=== PATIENT | female | born 1950 | race Caucasian/White ===

== ENCOUNTER 2022-01-06 18:53 | Inpatient (IN) ==
[2022-01-06 19:31] LABS: Hematocrit (blood only) 34.6 % (34.1-44.9); Hemoglobin 12.7 g/dl (12.0-16.0); Mean Corpuscular Hemoglobin 27.8 pg (25.0-34.0); Mean Corpuscular Hgb Conc 36.7 g/dL (32.0-36.0); Mean Corpuscular Volume 75.7 fL (80.0-100.0); Platelet Count 264 K/uL (130-400); RDW Coefficient of Variation 13.4 % (11.5-14.5); RDW Standard Deviation 36.1 fL (36.4-46.3); Red Blood Count 4.57 M/uL (3.93-5.22)
[2022-01-06 20:00] LABS: Alanine Aminotransferase 23 U/L (7-52); Albumin Globulin Ratio 0.9 (0.9-2); Albumin Level 2.7 gm/dl (3.4-5.0); Alkaline Phosphatase 81 U/L (34-104); Anion Gap 11 (3-11); Aspartate Aminotransferase 34 U/L (13-39); BUN Creatinine Ratio 25.5 (10-20); Bilirubin,Total 0.9 mg/dl (0.2-1.0); Blood Urea Nitrogen 14 mg/dl (6-23); Calcium 7.4 mg/dl (8.5-10.1); Carbon Dioxide 22 mmol/L (21-32); Chloride 75 mmol/L (98-107); Est GFR (African American) 107.8 ml/min; Est GFR (Non-African American) 93.1 ml/min; Globulin 2.9 gm/dl (2.5-4.0); Glucose 193 mg/dl (70-99(Fasting)); Magnesium 1.7 mg/dl (1.7-2.4); Potassium 3.6 mmol/L (3.5-5.1); Sodium 108 mmol/L (136-145); Total Protein 5.6 gm/dl (6.0-8.3); Troponin I High Sensitivity 13.1 pg/ml (0-14)
[2022-01-06] MEDS ORDERED: dexAMETHasone**PF** 10 MG/ML VIAL IV ONE (20:04)
[2022-01-06] MEDS ORDERED: AZTREONAM 2,000 MG in DEXTROSE 5% 100 ML IV STA (20:07)
[2022-01-06] MEDS ORDERED: VANCOMYCIN CONSULT ACTIVE PRN (20:07)
[2022-01-06] MEDS ORDERED: VANCOMYCIN HCL 1,000 MG in SODIUM CHLORIDE 0.9% 500 ML IV ONE (20:07)
--- NOTE | 2022-01-06 20:07 | XRay Report ---
XR chest 1V portable HISTORY: Dyspnea COMPARISON: None. FINDINGS: No pneumothorax. The cardiac silhouette is top normal in size. There are small bilateral pl eural effusions. There is diffuse interstitial/vascular thickening with right perihilar hazy airspace opacities. This favors moderate pulmonary edema. A superimposed pneumonia could also have a similar appearance in the appropriate clinical setting. Advanced degenerative changes within the shoulders. IMPRESSION: 1. Moderate pulmonary edema and small bilateral pleural effusions. 2. Right perihilar hazy airspace opacities is likely due to the pulmonary edema. A superimposed pneum onia could also have a similar appearance in the appropriate clinical setting. ACT 112: Negative or not required by law. Electronically signed by: Franki Egan M.D. 01/06/2022 8:06 PM
[2022-01-06] MEDS ORDERED: SODIUM CHLORIDE 0.9% 1000ML 250 ML IV ONE (20:18)
[2022-01-06] MEDS ORDERED: SODIUM CHLORIDE 0.9% 1000ML 1,000 ML IV STA (20:18)
[2022-01-06 20:23] LABS: Basophilic Stippling 1+; Basophils # (auto) 0.04 K/uL (0-0.2); Basophils % (auto) 0.3 %; Echinocytes 3+; Eosinophils # (auto) 0.01 K/uL (0-0.50); Eosinophils % (auto) 0.1 %; Immature Granulocytes # (auto) 0.26 K/uL (0.00-0.02); Lymphocytes # (auto) 0.52 K/uL (1.2-3.4); Monocytes # (auto) 0.68 K/uL (0.24-0.82); Monocytes % (auto) 5.2 %; Neutrophils # (auto) 11.49 K/uL (1.4-6.5); Neutrophils % (auto) 88.4 %; Ovalocytes 1+
--- NOTE | 2022-01-06 20:36 | History & Physical Report ---
Date of Service January 06, 2022 Assessment & Plan (1) Hypoxia: Plan: This is a 71-year-old female with a history of type 1 diabetes, diabetic retinopathy, bilateral BKAs, chronic indwelling Low, CAD s/p RCA stent in 2019 and significant LAD and/or left main disease, RA, dyslipidemia who presented to [facility] for evaluation of dyspnea and weakness, likely secondary to COVID-19 and possible superimposed bacterial PNA, as well as severe hyponatremia in the context of recent diarrhea and anorexia. Hypoxia / Shortness of Breath Work-up as follows: Chest x-ray demonstrating moderate pulmonary edema and small bilateral pleural effusions, as well as a right perihilar hazy opacity Leukocytosis to 13 with L shift on admission Pro-Rd elevated at 2.6 BNP normal at 86 Await MRSA nares COVID-19 PCR positive Likely secondary to COVID-19 and possibly superimposed bacterial pneumonia; lower suspicion there is a component of acute heart failure given dry appearance on exam Can consider CT Chest for further clarification of ?secondary bacterial PNA if clinical picture remains unclear ABX: Stop Aztreonam. 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 1 day INTEGRATION TECHNICIAN (01/05) - Repeat test was positive in the ER - Dexamethasone 6mg x 10 days ordered - Hold from remdesivir given recent Paxlovid completion - Monitor SpO2, titrate as needed - Isolation precautions ordered - ABX as above (3) Acute hyponatremia: Plan: Acute Hypotonic Hyponatremia - sOsm on arrival at [facility] - History revealing of significant anorexia over last few days alongside diarrhe a with Paxlovid - Suspect largely secondary to hypovolemia given clinical dry appearance and history noted above; may also be lesser component of SIADH given ongoing infections - s/p NSS 250cc in the ED - Continue NSS @ 125 cc/hr x 1L while monitoring I&Os; can readjust PRN - Await urine studies - NaCl 1g t.i.d. - Check BMP q2h x 2 then q4h - Will consider small boluses of 3% NaCl and renal consult if needed - Monitor I&Os - Seizure precautions, neurochecks ordered -- monitor in PCU Goal: Given suspected acuity, will aim for 4-6 mEq correction over first 6 hours, cap at ~8/24h (4) Diabetes type 1, controlled: Plan: T1DM - Patient has CGM and insulin pump attached - thankfully has remained relatively well-controlled over last few days - Hold use of home insulin pump - Glycemic consult appreciated - Not able to take ACEIs/ARBs due to allergy (5) Suprapubic catheter: Plan: - Noted. Has b/l BKAs, non-ambulatory. - Monitor and maintain while here - Per son - replaces q1mo (6) CAD (coronary atherosclerotic disease): Plan: CAD - Per [facility] cardiology notes: CAD s/p RCA stent in 2019 in [place], also noted to have significant LAD and/or left main disease on PCI - Continue ASA, clopidogrel, atorvastatin - Trialed BBs in the past, per [facility] Cardiology notes, but unfortunately experienced significant fatigue (7) Rheumatoid arthritis: Plan: RA - Stable. On Abatacept q4wk per Son. - Hold home prednisone given ongoing dexamethasone therapy Plan Code: FULL CODE Diet: CC when appropriate PPX: SCDs Dispo: PCU History of Present Illness Primary Care Provider: Fabian Grant MD This is a 71-year-old female with a history of type 1 diabetes, diabetic retinopathy, bilateral BKAs, chronic indwelling Low, CAD s/p RCA stent in 2019 and significant LAD and/or left main disease, RA, dyslipidemia who presented to [facility] for evaluation of dyspnea and weakness. Patient tested positive for COVID-19 8-days INTEGRATION TECHNICIAN. Went to [facility] the next day, given Paxlovid. Completed course, but unfortunately had bad diarrhea for several days - which has since improved. However, she became progressively more weak and her son reports significantly decreased PO intake leading up to today. She was confused today and at home, her pulse ox showed 75% - so they decided to bring her to the hospital. She denies SOB. Says she's had a productive cough x several days. No fevers, chills. No nausea or vomiting. Medications reviewed and include abatacept (q4w), acetaminophen, aspirin, atorvastatin, vitamin D3, clopidogrel, insulin, prednisone 2.5 mg daily. Allergies in PSH system: Keflex (GI discomfort), Bactrim (GI discomfort) No use of EtOH. No use of tobacco. At baseline, she is not ambulatory secondary to bilateral BKAs. She has an indwelling Low that is changed q1mo. On arrival, she was found to be tachycardic with heart rate 105, hypoxic with SPO2 86% on room air. Labs demonstrated leukocytosis to 13 with associated left shift. She was profoundly hyponatremic to 108, hypochloremic to 75, potassium 3.6, calcium 7.4. Chest x-ray demonstrated moderate pulmonary edema with small bilateral pleural effusions, and a right perihilar airspace opacity. Blood cultures were taken. ECG demonstrated no acute repolarization abnormalities, rhythm abnormalities, or conduction abnormalities. She was given 1250 cc NSS, started on aztreonam and vancomycin, and given a single dose of dexamethasone IV. Allergies Allergy/AdvReac Type Severity Reaction Status Date / Time cephalexin Allergy Unknown Unknown Verified 12/05/21 15:00 diphenhydramine Allergy Unknown Unknown Verified 12/05/21 15:00 hyoscyamine Allergy Unknown Unknown Verified 12/05/21 15:00 infliximab Allergy Unknown Unknown Verified 12/05/21 15:00 losartan Allergy Unknown Unknown Verified 12/05/21 15:00 phenazocine Allergy Unknown Unknown Verified 12/05/21 15:00 sulfamethoxazole Allergy Unknown Unknown Verified 12/05/21 15:00 lisinopril Allergy Verified 12/05/21 15:00 phenazopyridine Allergy Verified 12/05/21 15:00 [From Pyridium] ramipril AdvReac Unknown Unknown Verified 12/05/21 15:00 beta blockers Allergy Uncoded 12/05/21 15:00 novolin AdvReac Unknown Unknown Uncoded 12/05/21 15:00 Home Medications Medication Instructions Recorded Confirmed Type aspirin 81 mg tablet,delayed 81 mg PO DAILY #30 tabs 06/02/21 12/05/21 Rx release atorvastatin 80 mg tablet 80 mg PO DAILY #30 tabs 06/02/21 12/05/21 Rx clopidogrel 75 mg tablet (Plavix) 75 mg PO DAILY #30 tabs 06/02/21 12/05/21 Rx glucagon HCl 1 mg solution for 1 mg subcut Q20M PRN hypoglycemia 06/02/21 12/05/21 Rx injection (Glucagon (HCl) #1 ea Emergency Kit) multivitamin 1 tab PO DAILY #30 tabs 06/02/21 12/05/21 Rx prednisone 2.5 mg tablet 2.5 mg PO DAILY #30 tabs 06/02/21 12/05/21 Rx Lactobacillus acidophilus 10 10,000 mmu cells PO DAILY 07/18/21 12/05/21 History billion cell capsule (Probiotic) abatacept (with maltose) 250 mg See Rx Instructions IV .COMPLEX 10/13/21 12/05/21 History intravenous solution (Orencia (with maltose)) acetaminophen 325 mg capsule 650 mg PO Q4H PRN 10/13/21 12/05/21 History blood sugar diagnostic (OneTouch #1 ea 10/13/21 12/05/21 Rx Ultra Test strips) insulin lispro 100 unit/mL See Rx Instructions subcut DAILY 10/13/21 12/05/21 History subcutaneous solution (Humalog U-100 Insulin) cholecalciferol (vitamin D3) 50 2,000 unit PO DAILY #30 caps 10/26/21 12/05/21 Rx mcg (2,000 unit) capsule Past Med/Surg History Surgical History (Updated 10/13/21 @ 12:20 by Jason Myers) S/P BKA (below knee amputation) Stented coronary artery Family History (Updated 10/13/21 @ 08:55 by Mirtha Conte) Father Hypertension Stroke Mother Heart disease Social History Smoking Status: Never smoker Hx Alcohol Use: No Hx Substance Use: No Preferred Language: Kazakh Communication Ability: Effective Beliefs That Will Affect Care: None marital status: / Current Living Situation: Family Current Living Situation Comment: son, dil, grandkids current occupational status: retired current occupation: Retired RN Feels Safe at Home: Yes Assistive Devices: Glasses Review of Systems Review of Systems: as per HPI Physical Exam Physical Exam: General: 71-year old female who is tired and ill appearing, but alert and oriented throughout our discussion. HEENT: NCAT. - Eyes - Sclera are white, anicteric, and without injection. - Mouth - MMM - Neck - supple, no appreciable JVD Cardiac: Normal rate and regular rhythm; S1 and S2 present with no murmurs, rubs, or gallops. Pulmonary: Good respiratory effort with symmetric expansion of the chest. No use of accessory muscles. Lungs demonstrating bilateral crackles throughout both lungs, most notably at the bases. Abdominal: Normoactive bowel sounds. Abdomen was soft, nondistended, and non- tender to palpation. Extremities: Upper and lower extremities are warm and well perfused. No peripheral edema in the lower extremities bilaterally. Bilateral BKAs noted. Neuro: - Cranial Nerves: CN I, IX, XIII, and X - not assessed. II - PERRL. III/IV/ - EOMs WNL. No nystagmus. V - Facial sensation in tact in all three divisions; jaw opening WNL. VII - Patient is able to smile symmetrically and keep eyes close against resistance. IX - Soft palate raises equally and appropriately while sayi ng "ah." XI - Patient is able to shrug shoulders against resistance. XII - patient is able to stick out tongue and deviate from [id number] appropriately. - Motor: UE - Finger, wrist, elbow, and shoulder strength is 4/5 bilaterally. - Sensation: UE and LE sensation to light touch is grossly intact bilaterally. Results & Data Results & Data ([facility]) Vital Signs (Past 12 Hours) Vital Signs Temp Pulse Resp BP Pulse Ox O2 Del Method O2 Flow Rate 01/06/22 19:01 110 H 20 94 Nasal Cannula 6 01/06/22 18:42 36.3 C L 105 H 22 116/63 86 L Room Air 6 Supervising Physician Co-Signing Physician Notes Attending addendum: I have physically seen this patient, have supervised the medical residents activities, and agree with the H&P unless as otherwise noted. Assessment and Plan: Acute hypotonic hyponatremia- Sodium 108 upon admission Had significant decreased oral intake over the past week or so Large component is likely associated with COVID-19 pneumonia, and secondary bacterial pneumonia to be treated Sodium 108 Placed on sodium chloride 1 g p.o. 3 times daily Serial BMP as noted Acute respiratory failure with hypoxia/COVID-19 pneumonia/secondary bacterial pneumonia- Dexamethasone 6 mg IV daily for 10 days Status post completion of Paxlovid, may be necessary to treat second dosing if becomes long COVID Oxygen supplementation, titrate to keep pulse ox 94-95% Albuterol HFA as needed Possible aspiration Antibiotics Unasyn and doxycycline as noted MRSA nares pending CAD/hypertension/status post RCA stent in 2019/residual significant LAD and left main disease Continue aspirin, clopidogrel and atorvastatin Diabetes mellitus- Glycemic consult as noted Holding home insulin pump for now Remaining orders and notations as noted Resident Activity Tracking Resident Involvement: Resident Care Provided Care Provided: Adult Hospital Medicine
[2022-01-06] MEDS ORDERED: ACETAMINOPHEN 325 MG TAB PO PRN (21:05)
[2022-01-06 21:13] LABS: Appearance Urine Turbid (Clear); Bacteria Urine Automated 4+ (Negative); Bilirubin Urine Negative (Negative); Blood Urine 2+ (Negative); Color Urine Yellow; Epithelial Cell Urine Auto >30 /lpf (0-5); Glucose Urine UA Negative (Negative); Ketones Urine 2+ (Negative); Leukocyte Esterase Urine 3+ (Negative); Nitrite Urine Positive (Negative); Protein Urine 2+ (Negative); Specific Gravity Urine 1.016 (1.000-1.030); Urobilinogen Urine Negative (Negative); WBC Urine Automated >30 /hpf (0-5)
[2022-01-06] MEDS ORDERED: DOXYCYCLINE HYCLATE 100 MG in DEXTROSE 5% 100 ML IV SCH (22:45)
--- NOTE | 2022-01-06 22:49 | Emergency Department Note ---
Impression & Plan COVID-19, Hypoxia, Acute hyponatremia, Pneumonia ED Provider Note INFORMANT: Patient and son ED PROVIDER(S): Crispin Merritt MD CHIEF COMPLAINT: Shortness of breath PLAN: Disposition: Admitted Condition: Guarded Outpatient prescription management: none Referral: None MEDICAL DECISION MAKING: Patient presented because shortness of breath. Work-up was initiated. She was hypoxic requiring 6 L nasal cannula oxygen to maintain her saturations in the mid to upper 90s. She had a chest x-ray performed and this was very concerning for infiltrative processes worse on the right. Her BNP and troponin were negative. Radiology questioned infiltrate versus CHF. Seems to be more consist ent with an infectious process. Patient had a leukocytosis on CBC. The patient had blood cultures obtained and was given broad-spectrum antibiotics. Her COVID test was still positive. She was given IV Decadron. The patient was found to have severe hyponatremia with a sodium of 108. She was started on gentle normal saline hydration. Consultation was made with Dr. Phan Escobedo of the [facility] service. Patient was evaluated in the ER for further management. We did discuss hypertonic saline however he asked for her to be volume repleted with the normal saline first. Triage Nursing notes reviewed and agree them. Vital Signs: reviewed and remarkable for no significant abnormalities Differential diagnosis: Reactive airway disease, pneumonia, pneumothorax, COPD, CHF, infections, cardiac ischemia, pulmonary embolism, musculoskeletal, gastrointestinal, as well as other pathologies. Diagnostics interpreted by me: ECG: Twelve-lead ECG reveals a normal sinus rhythm at [address] elevation or depression. No PACs or PVCs. Cardiac Monitoring: Cardiac monitoring ordered by me: The patient was placed on continuous cardiac monitoring and observed. It revealed a normal sinus rhythm at 97 beats per minute without ectopy or evidence of dysrhythmia. Imaging studies: Moderate pulmonary edema and small bilateral pleural effusions. Right perihilar hazy airspace opacities is likely due to the pulmonary edema. A superimposed pneumonia could also have a similar appearance in the appropriate clinical setting. HPI: The patient is a 71year old female who presents to the Emergency Room with complaints of shortness of breath. This started over the last week and is worsening. The patient also notes the following associated symptoms, productive cough. Patient was diagnosed with COVID last weekend. She has had symptoms for about 8 days. She was started onPaxlovid and completed the course. She seemed to be getting worse, more weak. Family states she was having difficulty eating and drinking.. The patient has found no relieving factors. Current pain is rated as 0/10. Patient son states that he checked her pulse oximetry at home and she was 75%. Pt denies LOC, headache, diaphoresis, visual changes, neck pain, chest pain, nausea, vomiting, abdominal pain, back pain, melena, hematochezia, urinary symptoms, numbness, lymphadenopathy, rash, or other complaints. ROS: See above HPI for pertinent positives & negatives. A total of 10 systems reviewed and were otherwise negative. PAST MEDICAL HISTORY:See Below , diabetes PAST SURGICAL HISTORY:See Below, bilateral BKA FAMILY HISTORY:See Below SOCIAL HISTORY:See Below, lives with family HOME MEDICATIONS:See Below ALLERGIES:See Below CRITICAL CARE: Normal rate. Normal rhythm. No murmurs. No rubs. Extremities warm and well perfused. Pulses equal. No JVD. GI: Soft, non-distended. No tenderness to palpation. No rebound or guarding. No masses. RECTAL: Deferred. MUSCULOSKELETAL: Atraumatic. Chest examination reveals no tenderness. No joint edema. LOWER EXTREMITIES: Bilateral BKA's present. No edema. No discoloration. NEURO: Normal sensorium. No sensory or motor deficits noted. SKIN: No rash or jaundice noted. CRITICAL CARE: I have personally spent greater than 35 minutes of critical care time in the direct management of this patient. This includes bedside care, interpretation of diagnostic studies, and testing, discussion with consultants, patient, and family members, and other required patient management activities. These minutes are in excess of all separately billable procedures. Crispin Merritt MD Past Med/Surg History Surgical History (Updated 10/13/21 @ 12:20 by Jason Myers) S/P BKA (below knee amputation) Stented coronary artery Family History (Updated 10/13/21 @ 08:55 by Mirtha Conte) Father Hypertension Stroke Mother Heart disease Social History Smoking Status: Never smoker Hx Alcohol Use: No Preferred Language: Citizen Of [place] marital status: / current occupational status: retired current occupation: Retired RN Feels Safe at Home: Yes Allergies Allergies Allergy/AdvReac Type Severity Reaction Status Date / Time cephalexin Allergy Unknown Unknown Verified 12/05/21 15:00 diphenhydramine Allergy Unknown Unknown Verified 12/05/21 15:00 hyoscyamine Allergy Unknown Unknown Verified 12/05/21 15:00 infliximab Allergy Unknown Unknown Verified 12/05/21 15:00 losartan Allergy Unknown Unknown Verified 12/05/21 15:00 phenazocine Allergy Unknown Unknown Verified 12/05/21 15:00 sulfamethoxazole Allergy Unknown Unknown Verified 12/05/21 15:00 lisinopril Allergy Verified 12/05/21 15:00 phenazopyridine Allergy Verified 12/05/21 15:00 [From Pyridium] ramipril AdvReac Unknown Unknown Verified 12/05/21 15:00 beta blockers Allergy Uncoded 12/05/21 15:00 novolin AdvReac Unknown Unknown Uncoded 12/05/21 15:00 Home Meds Home Medications Medication Instructions Recorded Confirmed Lactobacillus acidophilus 10 10,000 mmu cells PO DAILY 07/18/21 12/05/21 billion cell capsule (Probiotic) abatacept (with maltose) 250 mg See Rx Instructions IV .COMPLEX 10/13/21 intravenous solution (Orencia (with maltose)) acetaminophen 325 mg capsule 650 mg PO Q4H PRN 10/13/21 12/05/21 insulin lispro 100 unit/mL See Rx Instructions subcut DAILY 10/13/21 12/05/21 subcutaneous solution (Humalog U-100 Insulin) Previous Rx's Medication Instructions Recorded aspirin 81 mg tablet,delayed 81 mg PO DAILY #30 tabs 06/02/21 release atorvastatin 80 mg tablet 80 mg PO DAILY #30 tabs 06/02/21 clopidogrel 75 mg tablet (Plavix) 75 mg PO DAILY #30 tabs 06/02/21 glucagon HCl 1 mg solution for 1 mg subcut Q20M PRN hypoglycemia 06/02/21 injection (Glucagon (HCl) #1 ea Emergency Kit) multivitamin 1 tab PO DAILY #30 tabs 06/02/21 prednisone 2.5 mg tablet 2.5 mg PO DAILY #30 tabs 06/02/21 blood sugar diagnostic (OneTouch #1 ea 10/13/21 Ultra Test strips) cholecalciferol (vitamin D3) 50 2,000 unit PO DAILY #30 caps 10/26/21 mcg (2,000 unit) capsule Results & Data (ED) Vital Signs Vital Signs - 24 hr 01/06/22 18:42 01/06/22 19:01 01/06/22 19:05 Temperature 36.3 C L Temperature Source Oral Pulse Rate 105 H 110 H Pulse Rate from SpO2 Sensor Pulse Rhythm Regular Regular Pulse Strength Normal Respiratory Rate 22 20 Respiratory Effort / Characteristics Non-Labored Non-Labored Respiratory Depth Normal Shallow Respiratory Pattern Regular Regular Blood Pressure 116/63 Blood Pressure Mean 80 Blood Pressure Position Sitting Pulse Oximetry 86 L 94 Oxygen Delivery Method Room Air Nasal Cannula Nasal Cannula Oxygen Flow Rate 6 6 6 Sepsis Recent Fever Within 48 Hours No Sepsis New/Unexplained Change in Mental Status No Sepsis Action Taken by Nursing No Action Required 01/06/22 19:05 01/06/22 19:30 01/06/22 19:31 Temperature Temperature Source Pulse Rate 99 H Pulse Rate from SpO2 Sensor 98 H Pulse Rhythm Pulse Strength Respiratory Rate 23 Respiratory Effort / Characteristics Respiratory Depth Respiratory Pattern Blood Pressure 127/68 Blood Pressure Mean 87 Blood Pressure Position Pulse Oximetry 93 Oxygen Delivery Method Nasal Cannula Oxygen Flow Rate 6 Sepsis Recent Fever Within 48 Hours Sepsis New/Unexplained Change in Mental Status Sepsis Action Taken by Nursing 01/06/22 19:40 01/06/22 19:50 01/06/22 20:00 Temperature Temperature Source Pulse Rate 93 H 94 H Pulse Rate from SpO2 Sensor 93 H 95 H Pulse Rhythm Pulse Strength Respiratory Rate 20 20 Respiratory Effort / Characteristics Respiratory Depth Respiratory Pattern Blood Pressure 124/68 Blood Pressure Mean 86 Blood Pressure Position Pulse Oximetry 94 95 Oxygen Delivery Method Oxygen Flow Rate Sepsis Recent Fever Within 48 Hours Sepsis New/Unexplained Change in Mental Status Sepsis Action Taken by Nursing 01/06/22 20:00 01/06/22 20:10 01/06/22 20:20 Temperature Temperature Source Pulse Rate 94 H 96 H 100 H Pulse Rate from SpO2 Sensor 95 H 96 H Pulse Rhythm Pulse Strength Respiratory Rate 20 22 22 Respiratory Effort / Characteristics Respiratory Depth Respiratory Pattern Blood Pressure Blood Pressure Mean Blood Pressure Position Pulse Oximetry 95 96 Oxygen Delivery Method Oxygen Flow Rate Sepsis Recent Fever Within 48 Hours Sepsis New/Unexplained Change in Mental Status Sepsis Action Taken by Nursing 01/06/22 20:30 01/06/22 20:30 01/06/22 20:40 Temperature Temperature Source Pulse Rate 100 H 99 H Pulse Rate from SpO2 Sensor Pulse Rhythm Pulse Strength Respiratory Rate 24 22 Respiratory Effort / Characteristics Respiratory Depth Respiratory Pattern Blood Pressure 129/66 Blood Pressure Mean 87 Blood Pressure Position Pulse Oximetry Oxygen Delivery Method Oxygen Flow Rate Sepsis Recent Fever Within 48 Hours Sepsis New/Unexplained Change in Mental Status Sepsis Action Taken by Nursing 01/06/22 20:50 01/06/22 21:00 01/06/22 21:00 Temperature Temperature Source Pulse Rate 97 H 97 H Pulse Rate from SpO2 Sensor 97 H 96 H Pulse Rhythm Pulse Strength Respiratory Rate 24 28 H Respiratory Effort / Characteristics Respiratory Depth Respiratory Pattern Blood Pressure 146/80 H Blood Pressure Mean 102 Blood Pressure Position Pulse Oximetry 96 98 Oxygen Delivery Method Oxygen Flow Rate Sepsis Recent Fever Within 48 Hours Sepsis New/Unexplained Change in Mental Status Sepsis Action Taken by Nursing Laboratory Data Result diagrams: 01/06/22 19:16 01/06/22 19:16 Lab Results 01/06/22 01/06/22 01/06/22 Range/Units 19:16 19:16 19:16 WBC 13.00 H (4.8-10.8) K/ul RBC 4.57 (3.93-5.22) M/uL Hgb 12.7 (12.0-16.0) g/dl Hct 34.6 (34.1-44.9) % MCV 75.7 L (80.0-100.0) fL MCH 27.8 (25.0-34.0) pg MCHC 36.7 H (32.0-36.0) g/dL RDW Std Deviation 36.1 L (36.4-46.3) fL RDW Coeff of Donovan 13.4 (11.5-14.5) % Plt Count 264 (130-400) K/uL MPV 10.0 (9.4-12.3) fL Immature Gran % (Auto) 2.0 % Neut % (Auto) 88.4 % Lymph % (Auto) 4.0 % [place] % (Auto) 5.2 % Eos % (Auto) 0.1 % Baso % (Auto) 0.3 % Neut # (Auto) 11.49 H (1.4-6.5) K/uL Lymph # (Auto) 0.52 L (1.2-3.4) K/uL [place] # (Auto) 0.68 (0.24-0.82) K/uL Eos # (Auto) 0.01 (0-0.50) K/uL Baso # (Auto) 0.04 (0-0.2) K/uL Immature Gran # (Auto) 0.26 H (0.00-0.02) K/uL Basophilic Stippling 1+ Ovalocytes 1+ Echinocytes 3+ Sodium 108 L* (136-145) mmol/L Potassium 3.6 (3.5-5.1) mmol/L Chloride 75 L (98-107) mmol/L Carbon Dioxide 22 (21-32) mmol/L Anion Gap 11 (3-11) BUN 14 (6-23) mg/dl Creatinine 0.55 L (0.6-1.2) mg/dl Est Cr Clr Drug Dosing Not Reportable Est GFR ( Amer) 107.8 ml/min Est GFR (Non-Af Amer) 93.1 ml/min BUN/Creatinine Ratio 25.5 H (10-20) Glucose 193 H (70-99(Fasting)) mg/dl Osmolality 232 L* (280-300) mOsm/kg Calcium 7.4 L (8.5-10.1) mg/dl Magnesium 1.7 (1.7-2.4) mg/dl Total Bilirubin 0.9 (0.2-1.0) mg/dl AST 34 (13-39) U/L ALT 23 (7-52) U/L Alkaline Phosphatase 81 (34-104) U/L Troponin I High Sens 13.1 (0-14) pg/ml C-Reactive Protein (0-0.5) mg/dl B-Natriuretic Peptide (0-100) pg/ml Total Protein 5.6 L (6.0-8.3) gm/dl Albumin 2.7 L (3.4-5.0) gm/dl Globulin 2.9 (2.5-4.0) gm/dl Albumin/Globulin Ratio 0.9 (0.9-2) Procalcitonin (0-0.5) ng/ml Urine Color Urine Appearance (Clear) Urine pH (4.5-7.5) Ur Specific [place] (1.000-1.030) Urine Protein (Negative) Urine Glucose (UA) (Negative) Urine Ketones (Negative) Urine Blood (Negative) Urine Nitrite (Negative) Urine Bilirubin (Negative) Urine Urobilinogen (Negative) Ur Leukocyte Esterase (Negative) Urine WBC (Auto) (0-5) /hpf Urine RBC (Auto) (0-4) /hpf U Hyaline Cast (Auto) (0-5) /lpf U Epithel Cells (Auto) (0-5) /lpf Urine Bacteria (Auto) (Negative) Urine Yeast SARS-CoV-2 (PCR) (Negative) 01/06/22 01/06/22 01/06/22 Range/Units 19:16 19:16 20:23 WBC (4.8-10.8) K/ul RBC (3.93-5.22) M/uL Hgb (12.0-16.0) g/dl Hct (34.1-44.9) % MCV (80.0-100.0) fL MCH (25.0-34.0) pg MCHC (32.0-36.0) g/dL RDW Std Deviation (36.4-46.3) fL RDW Coeff of Donovan (11.5-14.5) % Plt Count (130-400) K/uL MPV (9.4-12.3) fL Immature Gran % (Auto) % Neut % (Auto) % Lymph % (Auto) % [place] % (Auto) % Eos % (Auto) % Baso % (Auto) % Neut # (Auto) (1.4-6.5) K/uL Lymph # (Auto) (1.2-3.4) K/uL [place] # (Auto) (0.24-0.82) K/uL Eos # (Auto) (0-0.50) K/uL Baso # (Auto) (0-0.2) K/uL Immature Gran # (Auto) (0.00-0.02) K/uL Basophilic Stippling Ovalocytes Echinocytes Sodium (136-145) mmol/L Potassium (3.5-5.1) mmol/L Chloride (98-107) mmol/L Carbon Dioxide (21-32) mmol/L Anion Gap (3-11) BUN (6-23) mg/dl Creatinine (0.6-1.2) mg/dl Est Cr Clr Drug Dosing Est GFR ( Amer) ml/min Est GFR (Non-Af Amer) ml/min BUN/Creatinine Ratio (10-20) Glucose (70-99(Fasting)) mg/dl Osmolality (280-300) mOsm/kg Calcium (8.5-10.1) mg/dl Magnesium (1.7-2.4) mg/dl Total Bilirubin (0.2-1.0) mg/dl AST (13-39) U/L ALT (7-52) U/L Alkaline Phosphatase (34-104) U/L Troponin I High Sens (0-14) pg/ml C-Reactive Protein 17.48 H (0-0.5) mg/dl B-Natriuretic Peptide 87 (0-100) pg/ml Total Protein (6.0-8.3) gm/dl Albumin (3.4-5.0) gm/dl Globulin (2.5-4.0) gm/dl Albumin/Globulin Ratio (0.9-2) Procalcitonin 2.58 H (0-0.5) ng/ml Urine Color Urine Appearance (Clear) Urine pH (4.5-7.5) Ur Specific [place] (1.000-1.030) Urine Protein (Negative) Urine Glucose (UA) (Negative) Urine Ketones (Negative) Urine Blood (Negative) Urine Nitrite (Negative) Urine Bilirubin (Negative) Urine Urobilinogen (Negative) Ur Leukocyte Esterase (Negative) Urine WBC (Auto) (0-5) /hpf Urine RBC (Auto) (0-4) /hpf U Hyaline Cast (Auto) (0-5) /lpf U Epithel Cells (Auto) (0-5) /lpf Urine Bacteria (Auto) (Negative) Urine Yeast SARS-CoV-2 (PCR) (Negative) 01/06/22 01/06/22 Range/Units 21:06 21:06 WBC (4.8-10.8) K/ul RBC (3.93-5.22) M/uL Hgb (12.0-16.0) g/dl Hct (34.1-44.9) % MCV (80.0-100.0) fL MCH (25.0-34.0) pg MCHC (32.0-36.0) g/dL RDW Std Deviation (36.4-46.3) fL RDW Coeff of Donovan (11.5-14.5) % Plt Count (130-400) K/uL MPV (9.4-12.3) fL Immature Gran % (Auto) % Neut % (Auto) % Lymph % (Auto) % [place] % (Auto) % Eos % (Auto) % Baso % (Auto) % Neut # (Auto) (1.4-6.5) K/uL Lymph # (Auto) (1.2-3.4) K/uL [place] # (Auto) (0.24-0.82) K/uL Eos # (Auto) (0-0.50) K/uL Baso # (Auto) (0-0.2) K/uL Immature Gran # (Auto) (0.00-0.02) K/uL Basophilic Stippling Ovalocytes Echinocytes Sodium (136-145) mmol/L Potassium (3.5-5.1) mmol/L Chloride (98-107) mmol/L Carbon Dioxide (21-32) mmol/L Anion Gap (3-11) BUN (6-23) mg/dl Creatinine (0.6-1.2) mg/dl Est Cr Clr Drug Dosing Est GFR ( Amer) ml/min Est GFR (Non-Af Amer) ml/min BUN/Creatinine Ratio (10-20) Glucose (70-99(Fasting)) mg/dl Osmolality (280-300) mOsm/kg Calcium (8.5-10.1) mg/dl Magnesium (1.7-2.4) mg/dl Total Bilirubin (0.2-1.0) mg/dl AST (13-39) U/L ALT (7-52) U/L Alkaline Phosphatase (34-104) U/L Troponin I High Sens (0-14) pg/ml C-Reactive Protein (0-0.5) mg/dl B-Natriuretic Peptide (0-100) pg/ml Total Protein (6.0-8.3) gm/dl Albumin (3.4-5.0) gm/dl Globulin (2.5-4.0) gm/dl Albumin/Globulin Ratio (0.9-2) Procalcitonin (0-0.5) ng/ml Urine Color Yellow Urine Appearance Turbid A (Clear) Urine pH 6.0 (4.5-7.5) Ur Specific [place] 1.016 (1.000-1.030) Urine Protein 2+ H (Negative) Urine Glucose (UA) Negative (Negative) Urine Ketones 2+ H (Negative) Urine Blood 2+ H (Negative) Urine Nitrite Positive A (Negative) Urine Bilirubin Negative (Negative) Urine Urobilinogen Negative (Negative) Ur Leukocyte Esterase 3+ H (Negative) Urine WBC (Auto) >30 H (0-5) /hpf Urine RBC (Auto) 5-10 H (0-4) /hpf U Hyaline Cast (Auto) 1-5 (0-5) /lpf U Epithel Cells (Auto) >30 H (0-5) /lpf Urine Bacteria (Auto) 4+ H (Negative) Urine Yeast Not Reportable SARS-CoV-2 (PCR) POSITIVE A* (Negative) Administered Medications Sodium Chloride (Nss 1000ml) 1,000 mls @ 125 mls/hr IV .Q8H STA Stop: 01/07/22 04:17 Last Admin: 01/06/22 22:13 Dose: 125 mls/hr Documented By: AUDRA Discontinued Medications Sodium Chloride (Nss 1000ml) 250 mls @ 999 mls/hr IV .Q16M ONE Stop: 01/06/22 20:33 Last Infusion: 01/06/22 22:13 Dose: 0 mls/hr Documented By: Admin: 01/06/22 20:49 Dose: 999 mls/hr Documented By: AUDRA Imaging Data Radiologist's Impression: Chest X-Ray 01/06/22 19:01 XR chest 1V portable HISTORY: Dyspnea COMPARISON: None. FINDINGS: No pneumothorax. The cardiac silhouette is top normal in size. There are small bilateral pleural effusions. There is diffuse interstitial/vascular thickening with right perihilar hazy airspace opacities. This favors moderate pulmonary edema. A superimposed pneumonia could also have a similar appearance in the appropriate clinical setting. Advanced degenerative changes within the shoulders. IMPRESSION: 1. Moderate pulmonary edema and small bilateral pleural effusions. 2. Right perihilar hazy airspace opacities is likely due to the pulmonary edema. A superimposed pneumonia could also have a similar appearance in the appropriate clinical setting. ACT 112: Negative or not required by law. Electronically signed by: Franki Egan M.D. 01/06/2022 8:06 PM Discharge Plan Visit Data Chief Complaint: Shortness of Breath/Dyspnea Stated Complaint: SOB ED Provider: Crispin Merritt Discharge Problem: COVID-19, Hypoxia, Acute hyponatremia, Pneumonia Forms Stand Alone Forms: [facility] Prescriptions Prescriptions: No Action aspirin 81 mg tablet,delayed release (DR/EC) 81 mg PO DAILY Qty: 30 2RF atorvastatin 80 mg tablet 80 mg PO DAILY Qty: 30 2RF clopidogrel [Plavix] 75 mg tablet 75 mg PO DAILY Qty: 30 2RF Glucagon (HCl) Emergency Kit 1 mg recon soln 1 mg subcut Q20M PRN (Reason: hypoglycemia) Qty: 1 0RF Rx Instructions: until target blood sugar attained multivitamin Tablet 1 tab PO DAILY Qty: 30 0RF prednisone 2.5 mg tablet 2.5 mg PO DAILY Qty: 30 0RF cholecalciferol (vitamin D3) 50 mcg (2,000 unit) capsule 2,000 unit PO DAILY Qty: 30 0RF insulin lispro [Humalog U-100 Insulin] 100 unit/mL solution See Rx Instructions subcut DAILY Rx Instructions: 14-20 units subcut daily; via insulin pump (DME) OneTouch Ultra Test Strip See Rx Instructions .Route Qty: 1 0RF Rx Instructions: As directed Orencia (with maltose) 250 mg recon soln See Rx Instructions IV .COMPLEX Rx Instructions: 500mg IV every 4 weeks; acetaminophen 325 mg capsule 650 mg PO Q4H PRN Probiotic 10 billion cell Capsule 10,000 mmu cells PO DAILY Referrals Referrals: Fabian Grant MD [Primary Care Provider] -
[2022-01-06 23:26] LABS: Anion Gap 9 (3-11); BUN Creatinine Ratio 26.5 (10-20); Blood Urea Nitrogen 13 mg/dl (6-23); Calcium 7.1 mg/dl (8.5-10.1); Carbon Dioxide 22 mmol/L (21-32); Chloride 80 mmol/L (98-107); Est GFR (Non-African American) 96.7 ml/min; Glucose 175 mg/dl (70-99(Fasting)); Potassium 3.5 mmol/L (3.5-5.1); Sodium 111 mmol/L (136-145)
[2022-01-07 00:23] LABS: Creatinine Urine Random 63.7 mg/dl; Sodium Random Urine < 10 mmol/L
[2022-01-07 02:37] LABS: Anion Gap 10 (3-11); BUN Creatinine Ratio 27.7 (10-20); Blood Urea Nitrogen 13 mg/dl (6-23); Calcium 7.1 mg/dl (8.5-10.1); Carbon Dioxide 21 mmol/L (21-32); Chloride 82 mmol/L (98-107); Est GFR (African American) 113.6 ml/min; Glucose 203 mg/dl (70-99(Fasting)); Potassium 3.7 mmol/L (3.5-5.1); Sodium 113 mmol/L (136-145)
[2022-01-07] MEDS ORDERED: PHARMACY GLYCEMIC MGMT CONSULT PRN (03:29)
[2022-01-07] MEDS ORDERED: SODIUM CHLORIDE 0.9% 1000ML 1,000 ML IV SCH (03:29)
[2022-01-07] MEDS ORDERED: ALBUTEROL HFA 8 GM INHALER INH SCH (03:29)
[2022-01-07] MEDS ORDERED: NON-FORMULARY MEDICATION (Acetaminophen 325 mg capsule) PO PRN (03:29)
[2022-01-07] MEDS ORDERED: GLUCAGON FOR INJ 1 MG VIAL IM PRN (04:00)
[2022-01-07] MEDS ORDERED: GLUCOSE 10 TAB/TUBE PO PRN (04:00)
[2022-01-07] MEDS ORDERED: GLUCOSE 40% GEL 15 GM TUBE PO PRN (04:00)
[2022-01-07] MEDS ORDERED: DEXTROSE 50% 50 ML SYRINGE IV PRN (04:00)
[2022-01-07] MEDS ORDERED: ALBUTEROL HFA 8 GM INHALER INH PRN (04:19)
[2022-01-07] MEDS: AMPICILLIN/SULBACTAM SOD 3,000 MG in 0.9 % SODIUM CHLORIDE 100 ML IV SCH ×4 (04:33→21:40)
[2022-01-07] MEDS: INSULIN ASPART PER UNIT SC SCH ×5 (04:39→21:10)
[2022-01-07] MEDS: DOXYCYCLINE HYCLATE 100 MG in DEXTROSE 5% 100 ML IV SCH ×2 (04:52→17:31)
[2022-01-07] MEDS ORDERED: ENOXAPARIN INJ 30 MG/0.3 ML SYR SQ SCH (07:00)
[2022-01-07 07:11] LABS: Anion Gap 11 (3-11); Blood Urea Nitrogen 14 mg/dl (6-23); Calcium 7.2 mg/dl (8.5-10.1); Carbon Dioxide 20 mmol/L (21-32); Chloride 86 mmol/L (98-107); Est GFR (African American) 111.3 ml/min; Glucose 230 mg/dl (70-99(Fasting)); Sodium 117 mmol/L (136-145)
[2022-01-07 07:12] LABS: Potassium 3.9 mmol/L (3.5-5.1)
[2022-01-07] MEDS ORDERED: LANTUS PER UNIT CHARGE SQ ONE (08:01)
[2022-01-07] MEDS: dexAMETHasone 6 MG in SYRINGE 0 ML IV SCH (08:42)
[2022-01-07] MEDS: CHOLECALCIFEROL 1,000 UNITS 25 MCG TAB PO SCH (08:43)
[2022-01-07] MEDS: ATORVASTATIN 40 MG TAB PO SCH (08:43)
[2022-01-07] MEDS: MULTIVITAMIN TAB PO SCH (08:43)
[2022-01-07] MEDS: ADVANCED PROBIOTIC 1250 MG CAPSULE PO SCH (08:43)
[2022-01-07] MEDS: ASPIRIN 81 MG ECTAB PO SCH (08:43)
[2022-01-07] MEDS: CLOPIDOGREL BISULFATE 75 MG TAB PO SCH (08:43)
[2022-01-07] MEDS: HEPARIN SOD 5,000 UNIT/0.5 ML VIAL SQ SCH ×2 (08:44→21:39)
[2022-01-07] MEDS ORDERED: SODIUM CHLORIDE 1 GM TABLET PO SCH ×2 (09:00→14:00)
[2022-01-07 10:32] LABS: Anion Gap 12 (3-11); BUN Creatinine Ratio 30.6 (10-20); Blood Urea Nitrogen 15 mg/dl (6-23); Calcium 7.2 mg/dl (8.5-10.1); Carbon Dioxide 19 mmol/L (21-32); Chloride 85 mmol/L (98-107); Est GFR (Non-African American) 96.7 ml/min; Glucose 274 mg/dl (70-99(Fasting)); Potassium 3.6 mmol/L (3.5-5.1); Sodium 116 mmol/L (136-145)
--- NOTE | 2022-01-07 12:38 | Electrocardiogram Report ---
Test Reason : Blood Pressure : / mmHG Vent. Rate : 093 BPM Atrial Rate : 093 BPM P-R Int : 118 ms QRS Dur : 080 ms QT Int : 374 ms P-R-T Axes : -12 055 079 degrees QTc Int : 465 ms Normal sinus rhythm Normal ECG No previous ECGs available Confirmed by Tobin Luis ([id number]) on 01/07/2022 12:38:11 PM Referred By: REFERRED SELF Confirmed By:Tobin Luis
--- NOTE | 2022-01-07 14:48 | Pharmacy Report ---
Pharmacy Glycemic Short Note 2 - Date of Service January 07, 2022 - Glycemic Short BSG Results (Last 24 hours): 01/06/22 01/06/22 01/07/22 19:16 22:49 01:57 Glucose 193 H 175 H 203 H POC Glucose 01/07/22 01/07/22 01/07/22 04:19 05:41 07:42 Glucose 230 H POC Glucose 227 H 270 H 01/07/22 01/07/22 09:29 11:41 Glucose 274 H POC Glucose 243 H OUTPATIENT ANTIDIABETIC REGIMEN: * insulin pump - basal 6.25 units/day, TDD of 22 units/day, "guesstimates boluses/manually doses" - follows [facility] (pulled settings from prior note) ASSESSMENT: * 71 year old, type 1 diabetic admitted with COVID. Started on steroids on admission. Pharmacy consulted for glycemic management * Confirmed with RN that insulin pump removed. She believes it was taken off in ER sometime. * Fasting BSG this AM 270 mg/dL - likely due to no insulin last evening/pump being taken off and steroids being given. Patient on very small amount of basal insulin at home - will stress dose and trial with 10 units of basal for this morning to help cover ongoing steroids * Will trial stress of 3 novolog. Patient not eating much, will be cautious with adding basal insulin PLAN FOR INPATIENT GLYCEMIC CONTROL: * Hold outpatient oral diabetes medications * Basal insulin * Lantus 10 units daily * Bolus insulin * NovoLog per scale ACHS or Q6hrs while NPO * Goal Range: Low 120 mg/dL - High 160 mg/dL * Correction Factor: 30 mg/dL/unit * Nutritional / Prandial insulin per carb ratio of 1 unit per 15 grams CHO consumed
[2022-01-07 16:38] LABS: Anion Gap 9 (3-11); BUN Creatinine Ratio 34.6 (10-20); Blood Urea Nitrogen 18 mg/dl (6-23); Calcium 7.3 mg/dl (8.5-10.1); Carbon Dioxide 21 mmol/L (21-32); Chloride 89 mmol/L (98-107); Est GFR (African American) 109.9 ml/min; Est GFR (Non-African American) 94.8 ml/min; Glucose 220 mg/dl (70-99(Fasting)); Potassium 3.3 mmol/L (3.5-5.1); Sodium 119 mmol/L (136-145)
[2022-01-07] MEDS ORDERED: POTASSIUM CHLORIDE CRTAB 20 MEQ TABCR PO STA (17:00)
[2022-01-07] MEDS ORDERED: FUROSEMIDE INJ 20 MG/2 ML VIAL IV ONE (17:01)
--- NOTE | 2022-01-07 18:04 | Hospitalist Progress Note ---
Date of Service January 07, 2022 Assessment & Plan (1) COVID-19: Plan: (1) Hypoxia: Hypoxia / Shortness of Breath Likely secondary to COVID-19 and possibly superimposed bacterial pneumonia; on Unasyn and Doxycontinue for now, continue supportive care. On steroids for COVID, no indications for further immunosuppressive such as tocilizumab or baricitinib at this point in time. Already had a course of Paxil Gerardo, and given how far into the course of her COVID she is, remdesivir would be of essentially 0 benefit. Her volume status is a little bit difficult to determine, although given her slight increase in oxygen requirement after IV fluidswe will give a dose of Lasix and follow. (2) COVID-19: Plan: COVID-19 PNA -As above. Appears to be day 8 now probably day 9 with COVID, and I suspect most of her hypoxia is more than secondary bacterial pneumonia. Continue Dex. (3) Acute hyponatremia: Plan: Acute Hypotonic Hyponatremia-sOsm on arrival at [facility] -History most consistent with poor p.o. intakehypovolemic hyponatremia, but with fluids, her oxygen requirements went up slightlyits not clear if this is just within the natural range of her current illness, but given the overall situationgiving trial to a small dose of Lasix and following. Holding salt tabs because of this as well. Continue to follow volume status, continue to adjust course as needed. -Continue to follow basic metabolic panel every 4 hoursgoal correction of a max of 0.5 mEq/h (max of about 2 points of sodium between each check) (4) Diabetes type 1, controlled: Plan: T1DM -Pharmacy glycemic consult, continue to follow glucoses (5) Suprapubic catheter: Plan: - Noted. Has b/l BKAs, non-ambulatory. - Monitor and maintain while here - Per son - replaces q1mo (6) CAD (coronary atherosclerotic disease): Plan: CAD - Per [facility] cardiology notes: CAD s/p RCA stent in 2019 in [place], also noted to have significant LAD and/or left main disease on PCI - Continue ASA, clopidogrel, atorvastatin - Trialed BBs in the past, per [facility] Cardiology notes, but unfortunately experienced significant fatigue (7) Rheumatoid arthritis: Plan: RA - Stable. On Abatacept q4wk per Son. - Hold home prednisone given ongoing dexamethasone therapy Plan Code: FULL CODE Diet: CC when appropriate PPX: Heparin subcu Dispo: PCU for now, as she improvesPT/OT with question of whether or not she may need rehab at discharge Admission and Anticipated Discharge Date Admission Date: January 07, 2022 Subjective Generally feeling better. Breathing feels pretty good although she is on 5 L nasal cannula. Notes that her appetite is improving. Called her son to [facility] notes that she was looking a lot better whenever he saw her earlier. Review of Systems Review of Systems: All systems reviewed & are unremarkable except as noted in HPI & below Physical Exam Physical Exam: In general she is awake and alert seems to be mildly confused but it sounds like much more oriented than before, no distress. HEENT normocephalic atraumatic mucous membranes moist. Lungs are diminished throughout no clear adventitious sounds but with reduced air entry its very difficult to hear anything meaningful. No conversational dyspnea no accessory muscle use good effort. Skin shows no rashes no pallor or icterus. Abdomen is soft nondistended nontender no masses organomegaly. Results & Data Results & Data ([facility]) Vital Signs (Past 12 Hours) Vital Signs Temp Pulse Pulse Resp BP Pulse Ox O2 Del Method 01/07/22 16:40 98.4 F 97 H 20 111/60 95 Nasal Cannula 01/07/22 16:00 88 01/07/22 11:43 97.7 F 100 H 18 117/65 91 Nasal Cannula 01/07/22 08:00 88 01/07/22 08:00 Nasal Cannula 01/07/22 07:44 98.1 F 93 H 16 134/74 98 Nasal Cannula O2 Flow Rate 01/07/22 16:40 5 01/07/22 16:00 01/07/22 11:43 4 01/07/22 08:00 01/07/22 08:00 3 01/07/22 07:44 4 PG Care Time/CCT Total # of Minutes Spent Total Time Spent with Patient: Total time spent is greater than 50% in coordination of care (as documented) at patient's floor/unit and/or counseling patient: Coding Level of Care Code 10232 Subseq Hosp Care Lvl 3 Diagnoses COVID-19 U07.1
[2022-01-07 20:38] LABS: Anion Gap 9 (3-11); BUN Creatinine Ratio 30.5 (10-20); Blood Urea Nitrogen 18 mg/dl (6-23); Calcium 7.4 mg/dl (8.5-10.1); Carbon Dioxide 22 mmol/L (21-32); Chloride 88 mmol/L (98-107); Est GFR (African American) 105.4 ml/min; Est GFR (Non-African American) 90.9 ml/min; Glucose 235 mg/dl (70-99(Fasting)); Potassium 3.3 mmol/L (3.5-5.1); Sodium 119 mmol/L (136-145)
--- NOTE | 2022-01-07 20:50 | Billing Data ---
Date of Service January 07, 2022 Coding Level of Care Code 92801 Initial Inpt Care Lvl 3
[2022-01-07] MEDS ORDERED: LANTUS PER UNIT CHARGE SQ SCH (21:00)
[2022-01-08] MEDS: INSULIN ASPART PER UNIT SC SCH ×6 (00:30→20:55)
[2022-01-08] MEDS: AMPICILLIN/SULBACTAM SOD 3,000 MG in 0.9 % SODIUM CHLORIDE 100 ML IV SCH ×4 (03:00→23:15)
[2022-01-08] MEDS: DOXYCYCLINE HYCLATE 100 MG in DEXTROSE 5% 100 ML IV SCH ×2 (03:56→21:07)
--- NOTE | 2022-01-08 07:30 | Hospitalist Progress Note ---
Date of Service January 08, 2022 Assessment & Plan (1) Hypoxia: Plan: 71 year old female w/ PmHx T1DM, chronic indwelling inman, CAD s/p RCA stent 2019, significant LAD &/or R main disease, RA, dyslipidemia admitted for possible COVID + bacterial pneumonia induced hypoxic respiratory failure and hyponatremia. Hypoxia / Shortness of Breath Likely secondary to COVID-19 and possibly superimposed bacterial pneumonia;on Unasyn and Doxycontinue for now, continue supportive care. On steroids for COVID, no indications for further immunosuppressive such as tocilizumab or baricitinib at this point in time. Already had a course of Paxil Gerardo, and given how far into the course of her COVID she is, remdesivir would be of essentially 0 benefit. Her volume status is a little bit difficult to determine, although given her slight increase in oxygen requirement after IV fluidswe will give a dose of Lasix and follow. COVID-19 PNA -As above. Appears to be day 8 now probably day 9 with COVID, and I suspect most of her hypoxia is more than secondary bacterial pneumonia. Continue Dex. Acute Hypotonic Hyponatremia-sOsm on arrival at [facility] -History most consistent with poor p.o. intakehypovolemic hyponatremia, but with fluids, her oxygen requirements went up slightlyits not clear if this is just within the natural range of her current illness, but given the overall situationgiving trial to a small dose of Lasix and following. Holding salt tabs because of this as well. Continue to follow volume status, continue to adjust course as needed. -Continue to follow basic metabolic panel every 4 hoursgoal correction of a max of 0.5 mEq/h (max of about 2 points of sodium between each check) T1DM -Pharmacy glycemic consult, continue to follow glucoses Chronic Indwelling Catheter/Suprapubic pain - Noted. Has b/l BKAs, non-ambulatory. - Monitor and maintain while here - Per son - replaces q1mo CAD - Per [facility] cardiology notes: CAD s/p RCA stent in 2019 in [place], also noted to have significant LAD and/or left main disease on PCI - Continue ASA, clopidogrel, atorvastatin - Trialed BBs in the past, per [facility] Cardiology notes, but unfortunately experienced significant fatigue RA - Stable. On Abatacept q4wk per Son. - Hold home prednisone given ongoing dexamethasone therapy Plan Code: FULL CODE Diet: CC when appropriate PPX: Heparin SubQ Dispo: PCU (2) COVID-19: (3) Acute hyponatremia: (4) Diabetes type 1, controlled: (5) Suprapubic catheter: (6) CAD (coronary atherosclerotic disease): (7) Rheumatoid arthritis: Admission and Anticipated Discharge Date Admission Date: January 06, 2022 Review of Systems Review of Systems: as per HPI Results & Data Results & Data ([facility]) Vital Signs (Past 12 Hours) Vital Signs Temp Pulse Pulse Resp BP Pulse Ox Pulse Ox 01/07/22 22:22 79 01/08/22 03:00 36.6 C 82 18 116/57 L 95 01/08/22 00:25 36.7 C 88 18 122/86 92 01/07/22 20:45 01/07/22 21:39 89 18 135/67 93 01/07/22 21:05 93 O2 Del Method O2 Del Method O2 Flow Rate O2 Flow Rate 01/07/22 22:22 01/08/22 03:00 Nasal Cannula 5 01/08/22 00:25 Nasal Cannula 5 01/07/22 20:45 Nasal Cannula 5 01/07/22 21:39 Nasal Cannula 5 01/07/22 21:05 Nasal Cannula 5
[2022-01-08 08:20] LABS: Anion Gap 7 (3-11); BUN Creatinine Ratio 29.4 (10-20); Blood Urea Nitrogen 15 mg/dl (6-23); Calcium 7.5 mg/dl (8.5-10.1); Carbon Dioxide 26 mmol/L (21-32); Chloride 90 mmol/L (98-107); Est GFR (African American) 110.6 ml/min; Est GFR (Non-African American) 95.4 ml/min; Glucose 137 mg/dl (70-99(Fasting)); Potassium 3.3 mmol/L (3.5-5.1); Sodium 123 mmol/L (136-145)
[2022-01-08 08:46] LABS: Estimated Average Glucose 183 mg/dl
[2022-01-08] MEDS: dexAMETHasone 6 MG in SYRINGE 0 ML IV SCH (08:52)
[2022-01-08] MEDS: HEPARIN SOD 5,000 UNIT/0.5 ML VIAL SQ SCH ×2 (08:53→21:07)
[2022-01-08] MEDS: ADVANCED PROBIOTIC 1250 MG CAPSULE PO SCH (08:53)
[2022-01-08] MEDS: MULTIVITAMIN TAB PO SCH (08:53)
[2022-01-08] MEDS: ASPIRIN 81 MG ECTAB PO SCH (08:54)
[2022-01-08] MEDS: CHOLECALCIFEROL 1,000 UNITS 25 MCG TAB PO SCH (08:54)
[2022-01-08] MEDS: CLOPIDOGREL BISULFATE 75 MG TAB PO SCH (08:54)
[2022-01-08] MEDS: ATORVASTATIN 40 MG TAB PO SCH (08:54)
[2022-01-08] MEDS ORDERED: LANTUS PER UNIT CHARGE SQ SCH (09:00)
[2022-01-08 09:18] LABS: Hematocrit (blood only) 32.7 % (34.1-44.9); Hemoglobin 11.9 g/dl (12.0-16.0); Mean Corpuscular Hgb Conc 36.4 g/dL (32.0-36.0); Mean Corpuscular Volume 76.9 fL (80.0-100.0); Mean Platelet Volume 9.4 fL (9.4-12.3); Platelet Count 389 K/uL (130-400); RDW Coefficient of Variation 13.7 % (11.5-14.5); RDW Standard Deviation 38.4 fL (36.4-46.3); Red Blood Count 4.25 M/uL (3.93-5.22); White Blood Count 25.81 K/ul (4.8-10.8)
[2022-01-08 09:19] LABS: Basophils # (auto) 0.09 K/uL (0-0.2); Basophils % (auto) 0.3 %; Echinocytes 2+; Immature Granulocytes # (auto) 1.24 K/uL (0.00-0.02); Immature Granulocytes % (auto) 4.8 %; Lymphocytes # (auto) 1.04 K/uL (1.2-3.4); Monocytes % (auto) 4.6 %; Neutrophils # (auto) 22.24 K/uL (1.4-6.5); Neutrophils % (auto) 86.3 %
--- NOTE | 2022-01-08 11:14 | Pharmacy Report ---
Pharmacy Glycemic Short Note 2 - Date of Service January 08, 2022 - Glycemic Short BSG Results (Last 24 hours): 01/07/22 01/07/22 01/07/22 11:41 16:10 16:44 Glucose 220 H POC Glucose 243 H 228 H 01/07/22 01/07/22 01/07/22 20:07 20:57 22:42 Glucose 235 H POC Glucose 233 H 215 H 01/08/22 01/08/22 01/08/22 00:22 03:50 07:20 Glucose 137 H POC Glucose 214 H 120 H 01/08/22 07:36 Glucose POC Glucose 151 H OUTPATIENT ANTIDIABETIC REGIMEN: * insulin pump - basal 6.25 units/day, TDD of 22 units/day, "guesstimates boluses/manually doses" - follows [facility] (pulled settings from prior note) ASSESSMENT: 01/08 * 37 units SQ insulin given over last 24 hrs while tolerating a diet, however carb counts have been only ~12-40 grams per meal * Fasting BSG 151 this AM with 15 units basal on board and after receipt of 5 units correctional insulin overnight. Basal needs appear to be at least twice outpt needs given current stressors. Will continue scaled basal dosing given uncertain insulin requirements as we approach steady-state in type 1 dm. * Novolog CR dose will be increased due to elevated post-prandial BSGs yesterday. Continue current CF given overnight downward BSG trend (likely due to wearing off of AM dexamethasone) 01/07 * 71 year old, type 1 diabetic admitted with COVID. Started on steroids on admission. Pharmacy consulted for glycemic management * Confirmed with RN that insulin pump removed. She believes it was taken off in ER sometime. * Fasting BSG this AM 270 mg/dL - likely due to no insulin last evening/pump being taken off and steroids being given. Patient on very small amount of basal insulin at home - will stress dose and trial with 10 units of basal for this morning to help cover ongoing steroids * Will trial stress of 3 novolog. Patient not eating much, will be cautious with adding basal insulin PLAN FOR INPATIENT GLYCEMIC CONTROL: * Hold outpatient oral diabetes medications * Basal insulin * Lantus 8 units Q AM; scaled dosing at HS ( 0 units if BSG less than 160, 4 units if BSG 160-220, 7 units if BSG greater than 220) * Bolus insulin * NovoLog per scale ACHS or Q6hrs while NPO * Goal Range: Low 110 mg/dL - High 160 mg/dL * Correction Factor: 30 mg/dL/unit * Nutritional / Prandial insulin per carb ratio of 1 unit per 13 grams CHO consumed
[2022-01-08] MEDS ORDERED: POTASSIUM CHLORIDE CRTAB 20 MEQ TABCR PO STA (13:11)
--- NOTE | 2022-01-08 15:53 | Hospitalist Progress Note ---
Date of Service January 08, 2022 Assessment & Plan (1) COVID-19: (2) Hypoxia: (3) Acute hyponatremia: (4) Pneumonia: (5) Rheumatoid arthritis: (6) CAD (coronary atherosclerotic disease): (7) Diabetes type 1, controlled: Plan Hypoxia / Shortness of Breath COVID-19 PNA Appears to be day 8 now probably day 9 with COVID. Hypoxic Likely secondary to COVID-19 and possibly superimposed bacterial pneumonia.Already had a course of Paxlovid, and given how far into the course of her COVID she is, remdesivir would be of essentially 0 benefit. -continue steroids for COVID, -if worsens - tocilizumab or baricitinib -continue Unasyn and Doxy for possible superimposed bacterial pneumonia, -NC O2 to keep SaO2 around 94%. -Check crp -check procal -Received one dose of lasix on 01/07 for concern of hypovolemia. recheck CXR -add incentive spirometer. Acute Hypovolemic Hyponatremia-Na 108 on admission. sOsm on arrival at [facility] History most consistent with poor p.o. intakehypovolemic hyponatremia. Continue to follow volume status, continue to adjust course as needed. Na slowly improving - 123 -Continue to follow basic metabolic panel every 4 hoursgoal correction of a max of 0.5 mEq/h (max of about 2 points of sodium between each check) T1DM -Pharmacy glycemic consult, continue to follow glucoses Urinary retention - Noted. Has b/l BKAs, non-ambulatory. - Monitor and maintain while here - Per son - replaces q1mo CAD - Per [facility] cardiology notes: CAD s/p RCA stent in 2019 in [place], also noted to have significant LAD and/or left main disease on PCI - Continue ASA, clopidogrel, atorvastatin - Trialed BBs in the past, per [facility] Cardiology notes, but unfortunately experienced significant fatigue RA - Stable. On Abatacept q4wk per Son. - Hold home prednisone given ongoing dexamethasone therapy Plan Code: FULL CODE Diet: CC when appropriate PPX: Heparin subcu Dispo: PCU for now, with bilateral bka - home set up to provide care at home. case mx in contact with family for d/c needs. Admission and Anticipated Discharge Date Admission Date: January 06, 2022 Subjective Seen this am. Feeling better than today. More energy. denies feeling short of breath. no cough. no chest pain no fever. Physical Exam Constitutional: WD/WN, vitals as above Respiratory: No resp distress. Good air entry. crackles bilateral Cardiovascular: RRR, no murmur, no edema Psychiatric: A+Ox3, euthymic affect Results & Data Results & Data ([facility]) Vital Signs (Past 12 Hours) Vital Signs Temp Pulse Pulse Resp BP Pulse Ox O2 Del Method 01/08/22 14:59 97 H 01/08/22 12:26 36.7 C 97 H 20 136/70 90 Nasal Cannula 01/08/22 09:23 Nasal Cannula 01/08/22 09:20 86 01/08/22 07:56 36.5 C 97 H 18 151/72 H 91 Nasal Cannula O2 Flow Rate 01/08/22 14:59 01/08/22 12:26 5 01/08/22 09:23 5 01/08/22 09:20 01/08/22 07:56 5
--- NOTE | 2022-01-08 15:54 | XRay Report ---
XR chest 1V portable HISTORY: 71 years-old Female hypoxia acute hypoxia COMPARISON: Chest radiograph 01/06/2022 TECHNIQUE: Portable AP view of the chest FINDINGS: Cardiomediastinal and hilar silhouettes are unchanged. There is improving pulmonary edema with persis tent right greater than left mixed interstitial and alveolar opacities. No pneumothorax. Trace pleura l effusions have also decreased in size from the prior exam. Degenerative changes of the shoulders an d spine. IMPRESSION: 1. Improved aeration of the lungs with decreased mixed interstitial and alveolar opacities. Findings are suggestive of improving pulmonary edema versus multifocal pneumonia. 2. Trace pleural effusions have also decreased in size. ACT 112: Negative or not required by law. The above report was generated using voice recognition software. It may contain grammatical, syntax o r spelling errors. Electronically signed by: David Saunders M.D. 01/08/2022 3:52 PM
[2022-01-08 16:25] LABS: Anion Gap 9 (3-11); BUN Creatinine Ratio 30.6 (10-20); Blood Urea Nitrogen 19 mg/dl (6-23); Calcium 7.4 mg/dl (8.5-10.1); Carbon Dioxide 23 mmol/L (21-32); Chloride 90 mmol/L (98-107); Est GFR (African American) 103.7 ml/min; Est GFR (Non-African American) 89.5 ml/min; Glucose 208 mg/dl (70-99(Fasting)); Magnesium 1.9 mg/dl (1.7-2.4); Potassium 4.2 mmol/L (3.5-5.1); Sodium 122 mmol/L (136-145)
[2022-01-08] MEDS: LANTUS PER UNIT CHARGE SQ SCH (20:56)
[2022-01-09] MEDS: AMPICILLIN/SULBACTAM SOD 3,000 MG in 0.9 % SODIUM CHLORIDE 100 ML IV SCH ×4 (04:42→21:13)
[2022-01-09] MEDS: DOXYCYCLINE HYCLATE 100 MG in DEXTROSE 5% 100 ML IV SCH ×2 (05:22→18:17)
[2022-01-09 06:45] LABS: Hematocrit (blood only) 30.2 % (34.1-44.9); Hemoglobin 10.9 g/dl (12.0-16.0); Mean Corpuscular Hgb Conc 36.1 g/dL (32.0-36.0); Mean Corpuscular Volume 77.6 fL (80.0-100.0); Mean Platelet Volume 8.9 fL (9.4-12.3); Platelet Count 399 K/uL (130-400); RDW Coefficient of Variation 13.9 % (11.5-14.5); RDW Standard Deviation 39.2 fL (36.4-46.3); Red Blood Count 3.89 M/uL (3.93-5.22); White Blood Count 27.56 K/ul (4.8-10.8)
[2022-01-09 07:04] LABS: Anion Gap 7 (3-11); BUN Creatinine Ratio 29.4 (10-20); Blood Urea Nitrogen 15 mg/dl (6-23); Calcium 7.2 mg/dl (8.5-10.1); Carbon Dioxide 26 mmol/L (21-32); Chloride 91 mmol/L (98-107); Est GFR (African American) 110.6 ml/min; Est GFR (Non-African American) 95.4 ml/min; Glucose 167 mg/dl (70-99(Fasting)); Potassium 3.8 mmol/L (3.5-5.1); Sodium 124 mmol/L (136-145)
[2022-01-09 07:10] LABS: Acanthocytes 1+; Basophils # (auto) 0.08 K/uL (0-0.2); Basophils % (auto) 0.3 %; Echinocytes 2+; Immature Granulocytes % (auto) 4.4 %; Lymphocytes # (auto) 1.06 K/uL (1.2-3.4); Lymphocytes % (auto) 3.8 %; Monocytes # (auto) 1.69 K/uL (0.24-0.82); Monocytes % (auto) 6.1 %; Neutrophils # (auto) 23.53 K/uL (1.4-6.5); Neutrophils % (auto) 85.4 %
[2022-01-09] MEDS: INSULIN ASPART PER UNIT SC SCH ×4 (08:01→20:14)
[2022-01-09] MEDS: dexAMETHasone 6 MG in SYRINGE 0 ML IV SCH (08:30)
[2022-01-09] MEDS: ASPIRIN 81 MG ECTAB PO SCH (08:31)
[2022-01-09] MEDS: ATORVASTATIN 40 MG TAB PO SCH (08:31)
[2022-01-09] MEDS: MULTIVITAMIN TAB PO SCH (08:31)
[2022-01-09] MEDS: CLOPIDOGREL BISULFATE 75 MG TAB PO SCH (08:31)
[2022-01-09] MEDS: CHOLECALCIFEROL 1,000 UNITS 25 MCG TAB PO SCH (08:31)
[2022-01-09] MEDS: HEPARIN SOD 5,000 UNIT/0.5 ML VIAL SQ SCH ×2 (08:31→20:19)
[2022-01-09] MEDS: ADVANCED PROBIOTIC 1250 MG CAPSULE PO SCH (08:31)
[2022-01-09] MEDS ORDERED: LANTUS PER UNIT CHARGE SQ SCH (09:00)
--- NOTE | 2022-01-09 10:31 | Pharmacy Report ---
Pharmacy Glycemic Short Note 2 - Date of Service January 09, 2022 - Glycemic Short BSG Results (Last 24 hours): 01/08/22 01/08/22 01/08/22 11:19 14:36 16:27 Glucose 208 H POC Glucose 254 H 197 H 01/08/22 01/09/22 01/09/22 20:52 06:08 07:36 Glucose 167 H POC Glucose 138 H 181 H OUTPATIENT ANTIDIABETIC REGIMEN: * insulin pump - basal 6.25 units/day, TDD of 22 units/day, "guesstimates boluses/manually doses" - follows [facility] (pulled settings from prior note) ASSESSMENT: 01/09 * 18 units SQ insulin given over last 24 hrs while tolerating small meals (10- 20gm CHO per meal) * Fasting BSG elevated with 8 units basal on board (FBS 167-181). Will increase basal insulin dose as dexamethasone IV continues * Post-prandial BSG control reasonable yesterday with current CF/CR. May requ dhruv a larger prandial dose with breakfast if BSG continues to spike with lunch. 01/08 * 37 units SQ insulin given over last 24 hrs while tolerating a diet, however carb counts have been only ~12-40 grams per meal * Fasting BSG 151 this AM with 15 units basal on board and after receipt of 5 units correctional insulin overnight. Basal needs appear to be at least twice outpt needs given current stressors. Will continue scaled basal dosing given uncertain insulin requirements as we approach steady-state in type 1 dm. * Novolog CR dose will be increased due to elevated post-prandial BSGs yesterday. Continue current CF given overnight downward BSG trend (likely due to wearing off of AM dexamethasone) 01/07 * 71 year old, type 1 diabetic admitted with COVID. Started on steroids on admission. Pharmacy consulted for glycemic management * Confirmed with RN that insulin pump removed. She believes it was taken off in ER sometime. * Fasting BSG this AM 270 mg/dL - likely due to no insulin last evening/pump being taken off and steroids being given. Patient on very small amount of basal insulin at home - will stress dose and trial with 10 units of basal for this morning to help cover ongoing steroids * Will trial stress of 3 novolog. Patient not eating much, will be cautious with adding basal insulin PLAN FOR INPATIENT GLYCEMIC CONTROL: * Hold outpatient oral diabetes medications * Basal insulin * Lantus 10 units Q AM; scaled dosing at HS (0 units if BSG less than 120, 2 units if BSG 120-200, 4 units if BSG greater than 200) * Bolus insulin * NovoLog per scale ACHS or Q6hrs while NPO * Goal Range: Low 110 mg/dL - High 160 mg/dL * Correction Factor: 30 mg/dL/unit * Nutritional / Prandial insulin per carb ratio of 1 unit per 13 grams CHO consumed
--- NOTE | 2022-01-09 15:48 | Hospitalist Progress Note ---
Date of Service January 09, 2022 Assessment & Plan (1) COVID-19: (2) Hypoxia: (3) Acute hyponatremia: (4) Pneumonia: (5) Rheumatoid arthritis: (6) CAD (coronary atherosclerotic disease): (7) Diabetes type 1, controlled: Plan Hypoxia / Shortness of Breath COVID-19 PNA Hypoxic Likely secondary to COVID-19 and possibly superimposed bacterial pneumonia.Already had a course of Paxlovid, and given how far into the course of her COVID she is, remdesivir would be of essentially 0 benefit. -continue steroids for COVID, -if worsens - tocilizumab or baricitinib -with elevated procal - continue Unasyn and Doxy for possible superimposed bacterial pneumonia, -NC O2 to keep SaO2 around 94%. -Follow crp -Received one dose of lasix on 01/07 for concern of hypervolemia. recheck CXR with improved fluid overload findings -encouraged incentive spirometer. -if oxygenation stays stable - could consider d/c home on O2. unable to do 2 step due to bilateral bka. Acute Hypovolemic Hyponatremia-Na 108 on admission. sOsm on arrival at [facility] History most consistent with poor p.o. intakehypovolemic hyponatremia. Continue to follow volume status, continue to adjust course as needed. Na slowly improving - 124 -follow bmp in am Episode of narrow complex tachy - 01/09 -h/o intolerance to b rafi past causing severe fatigue - monitor. T1DM -Pharmacy glycemic consult, continue to follow glucoses Urinary retention - suprapubic cath - Noted. Has b/l BKAs, non-ambulatory. - Monitor and maintain while here - Per son - replaces q1mo CAD - Per [facility] cardiology notes: CAD s/p RCA stent in 2019 in [place], also noted to have significant LAD and/or left main disease on PCI - Continue ASA, clopidogrel, atorvastatin - Trialed BBs in the past, per [facility] Cardiology notes, but unfortunately experienced significant fatigue RA - Stable. On Abatacept q4wk per Son. - Hold home prednisone given ongoing dexamethasone therapy Plan Code: FULL CODE Diet: CC when appropriate PPX: Heparin subcu Dispo: PCU for now, with bilateral bka - home set up to provide care at home. case mx in contact with family for d/c needs. Admission and Anticipated Discharge Date Admission Date: January 06, 2022 Subjective Seen this am. sitting in bed and having breakfast denies feeling short of breath. no cough. no chest pain no fever. Physical Exam Constitutional: WD/WN, vitals as above Respiratory: decreased breath sounds at the base Cardiovascular: RRR, no murmur, no edema Psychiatric: A+Ox3, euthymic affect Results & Data Results & Data ([facility]) Vital Signs (Past 12 Hours) Vital Signs Temp Pulse Pulse Resp BP Pulse Ox O2 Del Method 01/09/22 15:22 102 H 01/09/22 06:22 82 01/09/22 12:03 36.9 C 101 H 16 142/114 H 93 01/09/22 09:15 Nasal Cannula 01/09/22 07:38 36.7 C 89 15 128/62 92 Nasal Cannula O2 Flow Rate 01/09/22 15:22 01/09/22 06:22 01/09/22 12:03 01/09/22 09:15 5 01/09/22 07:38 5
[2022-01-09] MEDS: LANTUS PER UNIT CHARGE SQ SCH (20:14)
[2022-01-10] MEDS ORDERED: INSULIN ASPART PER UNIT SC ONE (02:00)
[2022-01-10] MEDS: AMPICILLIN/SULBACTAM SOD 3,000 MG in 0.9 % SODIUM CHLORIDE 100 ML IV SCH ×4 (03:30→21:13)
[2022-01-10] MEDS: DOXYCYCLINE HYCLATE 100 MG in DEXTROSE 5% 100 ML IV SCH ×2 (04:52→18:26)
[2022-01-10 06:08] LABS: Basophils # (auto) 0.05 K/uL (0-0.2); Basophils % (auto) 0.2 %; Hematocrit (blood only) 29.2 % (34.1-44.9); Hemoglobin 10.4 g/dl (12.0-16.0); Immature Granulocytes # (auto) 0.54 K/uL (0.00-0.02); Immature Granulocytes % (auto) 2.6 %; Lymphocytes # (auto) 1.36 K/uL (1.2-3.4); Lymphocytes % (auto) 6.5 %; Mean Corpuscular Hgb Conc 35.6 g/dL (32.0-36.0); Mean Corpuscular Volume 78.7 fL (80.0-100.0); Mean Platelet Volume 8.9 fL (9.4-12.3); Monocytes # (auto) 1.03 K/uL (0.24-0.82); Monocytes % (auto) 4.9 %; Neutrophils # (auto) 17.92 K/uL (1.4-6.5); Neutrophils % (auto) 85.8 %; Platelet Count 369 K/uL (130-400); RDW Standard Deviation 40.4 fL (36.4-46.3); Red Blood Count 3.71 M/uL (3.93-5.22)
[2022-01-10 06:24] LABS: Appearance Urine Clear (Clear); Bilirubin Urine Negative (Negative); Blood Urine Negative (Negative); Color Urine Yellow; Glucose Urine UA Negative (Negative); Ketones Urine Negative (Negative); Leukocyte Esterase Urine Negative (Negative); Nitrite Urine Negative (Negative); Protein Urine Negative (Negative); Specific Gravity Urine 1.017 (1.000-1.030); Urobilinogen Urine Negative (Negative)
[2022-01-10 06:26] LABS: Anion Gap 4 (3-11); BUN Creatinine Ratio 27.6 (10-20); Blood Urea Nitrogen 16 mg/dl (6-23); C Reactive Protein 3.57 mg/dl (0-0.5); Carbon Dioxide 29 mmol/L (21-32); Chloride 92 mmol/L (98-107); Est GFR (Non-African American) 91.4 ml/min; Glucose 113 mg/dl (70-99(Fasting)); Potassium 3.6 mmol/L (3.5-5.1); Sodium 125 mmol/L (136-145)
[2022-01-10] MEDS: INSULIN ASPART PER UNIT SC SCH ×4 (08:28→20:43)
[2022-01-10] MEDS: ASPIRIN 81 MG ECTAB PO SCH (08:40)
[2022-01-10] MEDS: dexAMETHasone 6 MG in SYRINGE 0 ML IV SCH (08:40)
[2022-01-10] MEDS: ATORVASTATIN 40 MG TAB PO SCH (08:41)
[2022-01-10] MEDS: HEPARIN SOD 5,000 UNIT/0.5 ML VIAL SQ SCH ×2 (08:41→20:48)
[2022-01-10] MEDS: MULTIVITAMIN TAB PO SCH (08:41)
[2022-01-10] MEDS: CHOLECALCIFEROL 1,000 UNITS 25 MCG TAB PO SCH (08:41)
[2022-01-10] MEDS: CLOPIDOGREL BISULFATE 75 MG TAB PO SCH (08:41)
[2022-01-10] MEDS: ADVANCED PROBIOTIC 1250 MG CAPSULE PO SCH (08:41)
[2022-01-10] MEDS ORDERED: LANTUS PER UNIT CHARGE SQ SCH (09:00)
[2022-01-10] MEDS ORDERED: SODIUM CHLORIDE 1 GM TABLET PO ONE (10:09)
--- NOTE | 2022-01-10 11:18 | Pharmacy Report ---
Pharmacy Glycemic Short Note 2 - Date of Service January 10, 2022 - Glycemic Short BSG Results (Last 24 hours): 01/09/22 01/09/22 01/09/22 11:50 16:39 20:05 Glucose POC Glucose 294 H 272 H 240 H 01/10/22 01/10/22 01/10/22 01:41 05:32 07:50 Glucose 113 H POC Glucose 140 H 139 H OUTPATIENT ANTIDIABETIC REGIMEN: * insulin pump - basal 6.25 units/day, TDD of 22 units/day, "guesstimates boluses/manually doses" - follows [facility] (pulled settings from prior note) ASSESSMENT: 01/10 * 31 units SQ given over last 24 hrs again while tolerating small meals * Fasting BSG 139 this AM with 14 units basal on board and following receipt of 4 units correctional insulin overnight - will continue to up-titrate AM basal dose slightly while dexamethasone continues. * Post-prandial BSGs elevated yesterday, will escalate breakfast and lunch Novolog doses 01/09 * 18 units SQ insulin given over last 24 hrs while tolerating small meals (10- 20gm CHO per meal) * Fasting BSG elevated with 8 units basal on board (FBS 167-181). Will increase basal insulin dose as dexamethasone IV continues * Post-prandial BSG control reasonable yesterday with current CF/CR. May require a larger prandial dose with breakfast if BSG continues to spike with lunch. 01/08 * 37 units SQ insulin given over last 24 hrs while tolerating a diet, however carb counts have been only ~12-40 grams per meal * Fasting BSG 151 this AM with 15 units basal on board and after receipt of 5 units correctional insulin overnight. Basal needs appear to be at least twice outpt needs given current stressors. Will continue scaled basal dosing given uncertain insulin requirements as we approach steady-state in type 1 dm. * Novolog CR dose will be increased due to elevated post-prandial BSGs yesterday. Continue current CF given overnight downward BSG trend (likely due to wearing off of AM dexamethasone) 01/07 * 71 year old, type 1 diabetic admitted with COVID. Started on steroids on admission. Pharmacy consulted for glycemic management * Confirmed with RN that insulin pump removed. She believes it was taken off in ER sometime. * Fasting BSG this AM 270 mg/dL - likely due to no insulin last evening/pump being taken off and steroids being given. Patient on very small amount of basal insulin at home - will stress dose and trial with 10 units of basal for this morning to help cover ongoing steroids * Will trial stress of 3 novolog. Patient not eating much, will be cautious with adding basal insulin PLAN FOR INPATIENT GLYCEMIC CONTROL: * Hold outpatient oral diabetes medications * Basal insulin * Lantus 12 units Q AM; scaled dosing at HS (0 units if BSG less than 120, 2 units if BSG 120-200, 4 units if BSG greater than 200) * Bolus insulin * NovoLog per scale ACHS or Q6hrs while NPO * Goal Range: Low 110 mg/dL - High 160 mg/dL * Correction Factor: 30 mg/dL/unit * Nutritional / Prandial insulin per carb ratio of 1 unit per 10 grams CHO consumed with breakfast and lunch, 1 unit per 13 grams CHO with dinner
--- NOTE | 2022-01-10 15:10 | Hospitalist Progress Note ---
Date of Service January 10, 2022 Assessment & Plan (1) COVID-19: (2) Hypoxia: (3) Acute hyponatremia: (4) Pneumonia: (5) Rheumatoid arthritis: (6) CAD (coronary atherosclerotic disease): (7) Diabetes type 1, controlled: Plan Hypoxia / Shortness of Breath COVID-19 PNA Hypoxic Likely secondary to COVID-19 and possibly superimposed bacterial pneumonia.Already had a course of Paxlovid; no benefit of remdesivir since past early days of covid. -improvement in crp and oxygenation. -continue steroids, -with elevated procal - continue Unasyn and Doxy for possible superimposed bacterial pneumonia, -NC O2 -Received one dose of lasix on 01/07 for concern of hypervolemia. recheck CXR with improved fluid overload findings -encouraged incentive spirometer. nursing to help with use -if oxygenation stays stable - could consider d/c home on O2. unable to do 2 s tep due to bilateral bka. Acute Hypovolemic Hyponatremia-Na 108 on admission. sOsm on arrival at [facility] History most consistent with poor p.o. intakehypovolemic hyponatremia. Continue to follow volume status, continue to adjust course as needed. Na slowly improving - 125 -one dose salt tab today -follow bmp in am Episode of narrow complex tachy - 01/09 -h/o intolerance to b rafi past causing severe fatigue -no further episodes - monitor. T1DM -Pharmacy glycemic consult, continue to follow glucoses Urinary retention - suprapubic cath - Noted. Has b/l BKAs, non-ambulatory. - Monitor and maintain while here - Per son - replaces q1mo CAD - Per [facility] cardiology notes: CAD s/p RCA stent in 2019 in [place], also noted to have significant LAD and/or left main disease on PCI - Continue ASA, clopidogrel, atorvastatin - Trialed BBs in the past, per [facility] Cardiology notes, but unfortunately experienced significant fatigue RA - Stable. On Abatacept q4wk per Son. - Hold home prednisone given ongoing dexamethasone therapy Plan Code: FULL CODE Diet: CC when appropriate PPX: Heparin subcu Dispo: PCU for now, bilateral bka. case mx working on rehab placement Admission and Anticipated Discharge Date Admission Date: January 06, 2022 Subjective Seen this am. sitting in bed and nurse administering meds denies feeling short of breath. no cough. no chest pain no fever. showed IS use this am - but struggling to comprehend Physical Exam Constitutional: WD/WN, vitals as above Respiratory: clear to auscultation bilaterally Cardiovascular: RRR, no murmur, no edema Psychiatric: AA, oriented to place and person. Results & Data Results & Data ([facility]) Vital Signs (Past 12 Hours) Vital Signs Temp Pulse Resp BP Pulse Ox O2 Del Method O2 Flow Rate 01/10/22 11:26 36.8 C 92 H 10 L 139/73 90 Nasal Cannula 3 01/10/22 09:15 Nasal Cannula 3 01/10/22 07:59 36.6 C 90 24 131/66 87 L Nasal Cannula 3 01/10/22 03:20 36.8 C 83 16 122/65 92 Nasal Cannula 3
[2022-01-10] MEDS: LANTUS PER UNIT CHARGE SQ SCH (20:43)
[2022-01-11] MEDS: AMPICILLIN/SULBACTAM SOD 3,000 MG in 0.9 % SODIUM CHLORIDE 100 ML IV SCH ×4 (03:48→21:32)
[2022-01-11] MEDS: DOXYCYCLINE HYCLATE 100 MG in DEXTROSE 5% 100 ML IV SCH ×2 (04:22→17:24)
[2022-01-11 06:50] LABS: Basophils # (auto) 0.03 K/uL (0-0.2); Basophils % (auto) 0.2 %; Hematocrit (blood only) 31.8 % (34.1-44.9); Hemoglobin 11.3 g/dl (12.0-16.0); Immature Granulocytes # (auto) 0.54 K/uL (0.00-0.02); Lymphocytes # (auto) 1.56 K/uL (1.2-3.4); Lymphocytes % (auto) 8.6 %; Mean Corpuscular Hemoglobin 28.3 pg (25.0-34.0); Mean Corpuscular Hgb Conc 35.5 g/dL (32.0-36.0); Mean Corpuscular Volume 79.7 fL (80.0-100.0); Mean Platelet Volume 8.5 fL (9.4-12.3); Monocytes # (auto) 0.76 K/uL (0.24-0.82); Monocytes % (auto) 4.2 %; Platelet Count 347 K/uL (130-400); RDW Coefficient of Variation 14.1 % (11.5-14.5); Red Blood Count 3.99 M/uL (3.93-5.22); White Blood Count 18.09 K/ul (4.8-10.8)
[2022-01-11 07:18] LABS: Alanine Aminotransferase 18 U/L (7-52); Albumin Globulin Ratio 0.9 (0.9-2); Albumin Level 2.3 gm/dl (3.4-5.0); Alkaline Phosphatase 90 U/L (34-104); Anion Gap 5 (3-11); Aspartate Aminotransferase 33 U/L (13-39); BUN Creatinine Ratio 21.8 (10-20); Bilirubin,Total 0.4 mg/dl (0.2-1.0); Blood Urea Nitrogen 12 mg/dl (6-23); C Reactive Protein 4.65 mg/dl (0-0.5); Calcium 7.3 mg/dl (8.5-10.1); Carbon Dioxide 29 mmol/L (21-32); Chloride 92 mmol/L (98-107); Est GFR (African American) 107.8 ml/min; Est GFR (Non-African American) 93.1 ml/min; Globulin 2.6 gm/dl (2.5-4.0); Glucose 83 mg/dl (70-99(Fasting)); Potassium 3.4 mmol/L (3.5-5.1); Sodium 126 mmol/L (136-145); Total Protein 4.9 gm/dl (6.0-8.3)
[2022-01-11] MEDS: INSULIN ASPART PER UNIT SC SCH ×4 (08:58→21:36)
[2022-01-11] MEDS ORDERED: POTASSIUM CHLORIDE PWD 20 MEQ PACK PO ONE (09:00)
[2022-01-11] MEDS ORDERED: LANTUS PER UNIT CHARGE SQ SCH (09:00)
[2022-01-11] MEDS: HEPARIN SOD 5,000 UNIT/0.5 ML VIAL SQ SCH ×2 (09:25→21:27)
[2022-01-11] MEDS: dexAMETHasone 6 MG in SYRINGE 0 ML IV SCH (09:25)
[2022-01-11] MEDS: ASPIRIN 81 MG ECTAB PO SCH (09:30)
[2022-01-11] MEDS: CHOLECALCIFEROL 1,000 UNITS 25 MCG TAB PO SCH (09:30)
[2022-01-11] MEDS: ADVANCED PROBIOTIC 1250 MG CAPSULE PO SCH (09:30)
[2022-01-11] MEDS: ATORVASTATIN 40 MG TAB PO SCH (09:31)
[2022-01-11] MEDS: CLOPIDOGREL BISULFATE 75 MG TAB PO SCH (09:31)
[2022-01-11] MEDS: MULTIVITAMIN TAB PO SCH (09:31)
--- NOTE | 2022-01-11 09:46 | XRay Report ---
SINGLE VIEW CHEST CLINICAL HISTORY: Hypoxia. FINDINGS: An AP, portable, upright chest radiograph is compared to study dated 01/08/2022. The cardiom ediastinal silhouette is unremarkable noting atherosclerotic calcification of the thoracic aorta. Mul tifocal airspace consolidation is similar to 01/08/2022. No large pleural effusion or pneumothorax is seen. The skeletal structures are osteopenic. The bony thorax is grossly intact. Advanced arthritic c hange is seen in the shoulders. IMPRESSION: Mild multifocal airspace consolidation is similar in appearance to the 01/08/2022 examinat ion. This could represent pulmonary edema and/or an infectious/inflammatory pneumonitis. Clinical cor relation will be required and radiographic follow-up to resolution is recommended. ACT 112: Negative or not required by law. Electronically signed by: Werner Zhang M.D. 01/11/2022 9:45 AM
--- NOTE | 2022-01-11 12:40 | Pharmacy Report ---
Pharmacy Glycemic Short Note 2 - Date of Service January 11, 2022 - Glycemic Short BSG Results (Last 24 hours): 01/10/22 01/10/22 01/11/22 16:38 20:25 05:58 Glucose 83 POC Glucose 144 H 215 H 01/11/22 01/11/22 07:43 11:47 Glucose POC Glucose 74 117 H OUTPATIENT ANTIDIABETIC REGIMEN: * insulin pump - basal 6.25 units/day, TDD of 22 units/day, "guesstimates boluses/manually doses" - follows [facility] (pulled settings from prior note) ASSESSMENT: 01/11 * 19 units SQ given over last 24 hrs, PO intake had been poor * Fasting BSG 74-83 this AM with 16 units basal on board, will titrate basal down * Post-prandial BSGs acceptable for the most part yesterday 01/10 * 31 units SQ given over last 24 hrs again while tolerating small meals * Fasting BSG 139 this AM with 14 units basal on board and following receipt of 4 units correctional insulin overnight - will continue to up-titrate AM basal dose slightly while dexamethasone continues. * Post-prandial BSGs elevated yesterday, will escalate breakfast and lunch Novolog doses 01/09 * 18 units SQ insulin given over last 24 hrs while tolerating small meals (10- 20gm CHO per meal) * Fasting BSG elevated with 8 units basal on board (FBS 167-181). Will increase basal insulin dose as dexamethasone IV continues * Post-prandial BSG control reasonable yesterday with current CF/CR. May require a larger prandial dose with breakfast if BSG continues to spike with lunch. 01/08 * 37 units SQ insulin given over last 24 hrs while tolerating a diet, however carb counts have been only ~12-40 grams per meal * Fasting BSG 151 this AM with 15 units basal on board and after receipt of 5 units correctional insulin overnight. Basal needs appear to be at least twice outpt needs given current stressors. Will continue scaled basal dosing given uncertain insulin requirements as we approach steady-state in type 1 dm. * Novolog CR dose will be increased due to elevated post-prandial BSGs yesterday. Continue current CF given overnight downward BSG trend (likely due to wearing off of AM dexamethasone) PLAN FOR INPATIENT GLYCEMIC CONTROL: * Hold outpatient oral diabetes medications * Basal insulin * Lantus 8 units Q AM; scaled dosing at HS (0 units if BSG less than 140, 2 units if BSG 140-220, 4 units if BSG greater than 220) * Bolus insulin * NovoLog per scale ACHS or Q6hrs while NPO * Goal Range: Low 110 mg/dL - High 160 mg/dL * Correction Factor: 30 mg/dL/unit * Nutritional / Prandial insulin per carb ratio of 1 unit per 10 grams CHO consumed with breakfast and lunch, 1 unit per 13 grams CHO with dinner
--- NOTE | 2022-01-11 15:39 | Hospitalist Progress Note ---
Date of Service January 11, 2022 Assessment & Plan (1) COVID-19: (2) Hypoxia: (3) Acute hyponatremia: (4) Pneumonia: (5) Rheumatoid arthritis: (6) CAD (coronary atherosclerotic disease): (7) Diabetes type 1, controlled: Plan Hypoxia / Shortness of Breath COVID-19 PNA Possibly with superimposed bacterial pneumonia.Already had a course of Paxlovid; no benefit of remdesivir since past early days of covid. -CRP higher today 01/11 -continue steroids, -with elevated procal - continue Unasyn and Doxy for possible superimposed bacterial pneumonia, -Received one dose of lasix on 01/07 for concern of hypervolemia. recheck CXR with improved fluid overload findings -encouraged incentive spirometer. -NC O2 -once oxygenation stays stable - consider d/c home on O2. unable to do 2 step due to bilateral bka. Bloody sputum -humidify O2. -follow Acute Hypovolemic Hyponatremia-Na 108 on admission. sOsm on arrival at [facility] History most consistent with poor p.o. intakehypovolemic hyponatremia. Continue to follow volume status, continue to adjust course as needed. Na slowly improving - 126 -follow bmp in am Episode of narrow complex tachy - 01/09 -h/o intolerance to b rafi past causing severe fatigue -no further episodes - monitor. T1DM -Pharmacy glycemic consult, continue to follow glucoses Urinary retention - suprapubic cath - Noted. Has b/l BKAs, non-ambulatory. - Monitor and maintain while here - Per son - replaces q1mo CAD - Per [facility] cardiology notes: CAD s/p RCA stent in 2019 in [place], also noted to have significant LAD and/or left main disease on PCI - Continue ASA, clopidogrel, atorvastatin - Trialed BBs in the past, per [facility] Cardiology notes, but unfortunately experienced significant fatigue RA - Stable. On Abatacept q4wk per Son. - Hold home prednisone given ongoing dexamethasone therapy Plan Code: FULL CODE Diet: CC when appropriate PPX: Heparin subcu Dispo: PCU for now, bilateral bka. case mx working on rehab placement Admission and Anticipated Discharge Date Admission Date: January 06, 2022 Subjective Seen this am. sitting in bed and spitting out bloody sputum. congested cough+ denies feeling short of breath. no chest pain no fever. confirmed use of incentive spirometer - able to use it. Sao2 drops when using IS Physical Exam Constitutional: WD/WN, vitals as above Respiratory: mild resp distress with cough. mild crackles bilaterally Cardiovascular: RRR, no murmur, no edema Psychiatric: A+Ox3, euthymic affect Results & Data Results & Data ([facility]) Vital Signs (Past 12 Hours) Vital Signs Temp Pulse Pulse Resp BP Pulse Ox O2 Del Method 01/11/22 14:12 93 H 01/11/22 10:57 36.8 C 96 H 18 125/63 93 Nasal Cannula 01/11/22 07:32 Nasal Cannula 01/11/22 07:29 37.0 C 91 H 16 121/58 L 91 Nasal Cannula 01/11/22 06:15 82 O2 Flow Rate 01/11/22 14:12 01/11/22 10:57 5.0 01/11/22 07:32 3 01/11/22 07:29 3 01/11/22 06:15
[2022-01-11] MEDS: LANTUS PER UNIT CHARGE SQ SCH (21:36)
[2022-01-12] MEDS: AMPICILLIN/SULBACTAM SOD 3,000 MG in 0.9 % SODIUM CHLORIDE 100 ML IV SCH ×4 (04:55→22:53)
[2022-01-12] MEDS: DOXYCYCLINE HYCLATE 100 MG in DEXTROSE 5% 100 ML IV SCH ×2 (05:43→16:27)
[2022-01-12 05:56] LABS: Basophils # (auto) 0.03 K/uL (0-0.2); Basophils % (auto) 0.2 %; Hematocrit (blood only) 28.1 % (34.1-44.9); Hemoglobin 9.9 g/dl (12.0-16.0); Immature Granulocytes # (auto) 0.49 K/uL (0.00-0.02); Immature Granulocytes % (auto) 2.7 %; Lymphocytes # (auto) 2.05 K/uL (1.2-3.4); Lymphocytes % (auto) 11.2 %; Mean Corpuscular Hemoglobin 28.3 pg (25.0-34.0); Mean Corpuscular Hgb Conc 35.2 g/dL (32.0-36.0); Mean Corpuscular Volume 80.3 fL (80.0-100.0); Monocytes # (auto) 0.84 K/uL (0.24-0.82); Monocytes % (auto) 4.6 %; Neutrophils # (auto) 14.92 K/uL (1.4-6.5); Neutrophils % (auto) 81.3 %; Platelet Count 290 K/uL (130-400); RDW Coefficient of Variation 14.3 % (11.5-14.5); RDW Standard Deviation 41.3 fL (36.4-46.3); White Blood Count 18.33 K/ul (4.8-10.8)
[2022-01-12 06:45] LABS: Anion Gap 5 (3-11); BUN Creatinine Ratio 26.4 (10-20); Blood Urea Nitrogen 14 mg/dl (6-23); C Reactive Protein 3.96 mg/dl (0-0.5); Carbon Dioxide 26 mmol/L (21-32); Chloride 94 mmol/L (98-107); Est GFR (African American) 109.2 ml/min; Est GFR (Non-African American) 94.2 ml/min; Glucose 71 mg/dl (70-99(Fasting)); Potassium 3.8 mmol/L (3.5-5.1); Sodium 125 mmol/L (136-145)
[2022-01-12] MEDS: INSULIN ASPART PER UNIT SC SCH ×4 (08:29→20:39)
[2022-01-12] MEDS: LANTUS PER UNIT CHARGE SQ SCH ×2 (08:30→20:39)
[2022-01-12] MEDS: ADVANCED PROBIOTIC 1250 MG CAPSULE PO SCH (08:46)
[2022-01-12] MEDS: CHOLECALCIFEROL 1,000 UNITS 25 MCG TAB PO SCH (08:47)
[2022-01-12] MEDS: ATORVASTATIN 40 MG TAB PO SCH (08:47)
[2022-01-12] MEDS: ASPIRIN 81 MG ECTAB PO SCH (08:47)
[2022-01-12] MEDS: CLOPIDOGREL BISULFATE 75 MG TAB PO SCH (08:47)
[2022-01-12] MEDS: HEPARIN SOD 5,000 UNIT/0.5 ML VIAL SQ SCH ×2 (08:48→20:39)
[2022-01-12] MEDS: MULTIVITAMIN TAB PO SCH (08:48)
[2022-01-12] MEDS: dexAMETHasone 6 MG in SYRINGE 0 ML IV SCH (09:35)
--- NOTE | 2022-01-12 11:17 | Pharmacy Report ---
Pharmacy Glycemic Short Note 2 - Date of Service January 12, 2022 - Glycemic Short BSG Results (Last 24 hours): 01/11/22 01/11/22 01/11/22 11:47 16:47 20:34 Glucose POC Glucose 117 H 142 H 193 H 01/12/22 01/12/22 05:30 07:44 Glucose 71 POC Glucose 95 OUTPATIENT ANTIDIABETIC REGIMEN: * insulin pump - basal 6.25 units/day, TDD of 22 units/day, "guesstimates boluses/manually doses" - follows [facility] (pulled settings from prior note) ASSESSMENT: 01/12 * 17 units SQ given over last 24 hrs, PO intake was a little better yesterday per carb counts and significantly better with breakfast today * Fasting BSG 71-95 this AM with 12 units basal on board. Will titrate basal down given GLU of 71 on today's chemistry. * Post-prandial BSGs acceptable with current Novolog doses. Will lessing correctional insulin dose at bedtime given AM BSGs less than 100 01/11 * 19 units SQ given over last 24 hrs, PO intake had been poor * Fasting BSG 74-83 this AM with 16 units basal on board, will titrate basal down * Post-prandial BSGs acceptable for the most part yesterday 01/10 * 31 units SQ given over last 24 hrs again while tolerating small meals * Fasting BSG 139 this AM with 14 units basal on board and following receipt of 4 units correctional insulin overnight - will continue to up-titrate AM basal dose slightly while dexamethasone continues. * Post-prandial BSGs elevated yesterday, will escalate breakfast and lunch Novolog doses 01/09 * 18 units SQ insulin given over last 24 hrs while tolerating small meals (10- 20gm CHO per meal) * Fasting BSG elevated with 8 units basal on board (FBS 167-181). Will increase basal insulin dose as dexamethasone IV continues * Post-prandial BSG control reasonable yesterday with current CF/CR. May require a larger prandial dose with breakfast if BSG continues to spike with lunch. PLAN FOR INPATIENT GLYCEMIC CONTROL: * Hold outpatient oral diabetes medications * Basal insulin * Lantus 6 units Q AM; scaled dosing at HS (0 units if BSG less than 140, 2 units if BSG 140-220, 4 units if BSG greater than 220) * Bolus insulin * NovoLog per scale ACHS or Q6hrs while NPO * Goal Range: Low 110 mg/dL - High 160 mg/dL * Correction Factor: 30 mg/dL/unit AC; correction factor 50mg/dL/unit at HS * Nutritional / Prandial insulin per carb ratio of 1 unit per 10 grams CHO consumed with meals
--- NOTE | 2022-01-12 17:13 | Hospitalist Progress Note ---
Date of Service January 12, 2022 Assessment & Plan (1) COVID-19: (2) Hypoxia: (3) Acute hyponatremia: (4) Pneumonia: (5) Rheumatoid arthritis: (6) CAD (coronary atherosclerotic disease): (7) Diabetes type 1, controlled: Plan Plan Hypoxia / Shortness of Breath COVID-19 PNA Possibly with superimposed bacterial pneumonia.Already had a course of Paxlovid; no benefit of remdesivir since past early days of covid. -CRP 3.96 improving -continue steroids, -with elevated procal - continue Unasyn and Doxy for possible superimposed bacterial pneumonia, -Received one dose of lasix on 01/07 for concern of hypervolemia. recheck CXR with improved fluid overload findings -encouraged incentive spirometer. -NC O2 -once oxygenation stays stable - consider d/c home on O2. unable to do 2 step due to bilateral bka. Bloody sputum -improved with humidifying O2. -follow Acute Hypovolemic Hyponatremia-Na 108 on admission.sOsm on arrival at [facility] History most consistent with poor p.o. intakehypovolemic hyponatremia. Continue to follow volume status, continue to adjust course as needed. Na slowly improving - 125 -follow bmp in am Episode of narrow complex tachy - 01/09 -h/o intolerance to b rafi past causing severe fatigue -no further episodes - monitor. T1DM -Pharmacy glycemic consult, continue to follow glucoses Urinary retention - suprapubic cath - Noted. Has b/l BKAs, non-ambulatory. - Monitor and maintain while here - Per son - replaces q1mo CAD - Per [facility] cardiology notes: CAD s/p RCA stent in 2019 in [place], also noted to have significant LAD and/or left main disease on PCI - Continue ASA, clopidogrel, atorvastatin - Trialed BBs in the past, per [facility] Cardiology notes, but unfortunately experienced significant fatigue RA - Stable. On Abatacept q4wk per Son. - Hold home prednisone given ongoing dexamethasone therapy Plan Code: FULL CODE Diet: CC when appropriate PPX: Heparin subcu Dispo: PCU for now, bilateral bka. case mx working on rehab placement Admission and Anticipated Discharge Date Admission Date: January 06, 2022 Subjective seen this am. sitting up in the bed. pleasant. denied any concerns didn't recall having bloody sputum yesterday. no chest pain, shortness of breath, cough. no fever. Physical Exam Constitutional: WD/WN, vitals as above Respiratory: normal respiratory effort, lungs clear to auscultation Cardiovascular: RRR, no murmur, no edema Psychiatric: alert, awake. oriented to place and person. Results & Data Results & Data ([facility]) Vital Signs (Past 12 Hours) Vital Signs Temp Pulse Resp BP Pulse Ox Pulse Ox O2 Del Method 01/12/22 14:59 36.3 C L 92 H 18 126/67 94 Nasal Cannula 01/12/22 12:00 36.4 C L 98 H 18 119/55 L 98 Nasal Cannula 01/12/22 08:00 Nasal Cannula 01/12/22 08:00 90 01/12/22 06:46 36.6 C 90 16 130/60 93 Nasal Cannula O2 Del Method O2 Flow Rate O2 Flow Rate 01/12/22 14:59 2 01/12/22 12:00 01/12/22 08:00 2 01/12/22 08:00 Nasal Cannula 2 01/12/22 06:46 3
[2022-01-13] MEDS: AMPICILLIN/SULBACTAM SOD 3,000 MG in 0.9 % SODIUM CHLORIDE 100 ML IV SCH ×4 (04:32→22:37)
[2022-01-13] MEDS: DOXYCYCLINE HYCLATE 100 MG in DEXTROSE 5% 100 ML IV SCH ×2 (05:19→17:55)
[2022-01-13 06:14] LABS: Basophils # (auto) 0.02 K/uL (0-0.2); Basophils % (auto) 0.1 %; Hematocrit (blood only) 29.6 % (34.1-44.9); Hemoglobin 10.6 g/dl (12.0-16.0); Immature Granulocytes # (auto) 0.61 K/uL (0.00-0.02); Immature Granulocytes % (auto) 3.3 %; Lymphocytes # (auto) 2.46 K/uL (1.2-3.4); Lymphocytes % (auto) 13.2 %; Mean Corpuscular Hemoglobin 28.5 pg (25.0-34.0); Mean Corpuscular Hgb Conc 35.8 g/dL (32.0-36.0); Mean Corpuscular Volume 79.6 fL (80.0-100.0); Monocytes # (auto) 0.99 K/uL (0.24-0.82); Monocytes % (auto) 5.3 %; Neutrophils % (auto) 78.1 %; Platelet Count 313 K/uL (130-400); RDW Coefficient of Variation 14.4 % (11.5-14.5); RDW Standard Deviation 41.1 fL (36.4-46.3); Red Blood Count 3.72 M/uL (3.93-5.22); White Blood Count 18.68 K/ul (4.8-10.8)
[2022-01-13 06:35] LABS: BUN Creatinine Ratio 30.6 (10-20); C Reactive Protein 3.21 mg/dl (0-0.5); Calcium 7.2 mg/dl (8.5-10.1); Creatinine Clr Calc Pharmacy 76.4 ml/min; Est GFR (Non-African American) 96.7 ml/min; Potassium 3.7 mmol/L (3.5-5.1)
[2022-01-13] MEDS: LANTUS PER UNIT CHARGE SQ SCH (08:17)
[2022-01-13] MEDS: INSULIN ASPART PER UNIT SC SCH ×4 (08:17→20:30)
[2022-01-13] MEDS: HEPARIN SOD 5,000 UNIT/0.5 ML VIAL SQ SCH ×2 (08:33→20:30)
[2022-01-13] MEDS: dexAMETHasone 6 MG in SYRINGE 0 ML IV SCH (08:33)
[2022-01-13] MEDS: ATORVASTATIN 40 MG TAB PO SCH (08:34)
[2022-01-13] MEDS: ADVANCED PROBIOTIC 1250 MG CAPSULE PO SCH (08:36)
[2022-01-13] MEDS: ASPIRIN 81 MG ECTAB PO SCH (08:36)
[2022-01-13] MEDS: MULTIVITAMIN TAB PO SCH (08:36)
[2022-01-13] MEDS: CHOLECALCIFEROL 1,000 UNITS 25 MCG TAB PO SCH (08:36)
[2022-01-13] MEDS: CLOPIDOGREL BISULFATE 75 MG TAB PO SCH (08:36)
[2022-01-13] MEDS ORDERED: SODIUM CHLORIDE 1 GM TABLET PO ONE (08:39)
--- NOTE | 2022-01-13 15:42 | Hospitalist Progress Note ---
Date of Service January 13, 2022 Assessment & Plan (1) COVID-19: (2) Hypoxia: (3) Acute hyponatremia: (4) Pneumonia: (5) Rheumatoid arthritis: (6) CAD (coronary atherosclerotic disease): (7) Diabetes type 1, controlled: Plan Plan Hypoxia / Shortness of Breath COVID-19 PNA Possibly with superimposed bacterial pneumonia.Already had a course of Paxlovid; no benefit of remdesivir since past early days of covid. -CRP improving -continue steroids for 10days/till discharge, -with elevated procal - continue Unasyn and Doxy for possible superimposed bacterial pneumonia, -Received one dose of lasix on 01/07 for concern of hypervolemia. recheck CXR with improved fluid overload findings -encouraged incentive spirometer. -NC O2 - SaO2 improving -once oxygenation stays stable - consider d/c home on O2. unable to do 2 step due to bilateral bka. Bloody sputum -improved with humidifying O2. -follow Acute Hypovolemic Hyponatremia-Na 108 on admission.sOsm on arrival at [facility] History most consistent with poor p.o. intakehypovolemic hyponatremia. Continue to follow volume status, continue to adjust course as needed. Na slowly improving - 125 -follow bmp in am Episode of narrow complex tachy - 01/09 -h/o intolerance to b rafi past causing severe fatigue -no further episodes - monitor. T1DM -Pharmacy glycemic consult, continue to follow glucoses Urinary retention - suprapubic cath - Noted. Has b/l BKAs, non-ambulatory. - Monitor and maintain while here - Per son - replaces q1mo CAD - Per [facility] cardiology notes: CAD s/p RCA stent in 2019 in [place], also noted to have significant LAD and/or left main disease on PCI - Continue ASA, clopidogrel, atorvastatin - Trialed BBs in the past, per [facility] Cardiology notes, but unfortunately experienced significant fatigue RA - Stable. On Abatacept q4wk per Son. - Hold home prednisone given ongoing dexamethasone therapy Plan Code: FULL CODE Diet: CC when appropriate PPX: Heparin subcu Dispo: PCU for now, bilateral bka. case mx working on rehab placement - awating insurance auth Admission and Anticipated Discharge Date Admission Date: January 06, 2022 Subjective seen this am. sitting up in the bed. pleasant. wanting to sit in the chair no blood in sputum no chest pain, shortness of breath, cough. no fever. Physical Exam Constitutional: WD/WN, vitals as above Respiratory: normal respiratory effort, lungs clear to auscultation Cardiovascular: RRR, no murmur, no edema Psychiatric: alert, awake, oriented to place and person Results & Data Results & Data ([facility]) Vital Signs (Past 12 Hours) Vital Signs Temp Pulse Pulse Resp BP Pulse Ox Pulse Ox 01/13/22 12:06 36.7 C 99 H 19 118/48 L 96 01/13/22 09:24 90 01/13/22 09:24 01/13/22 08:00 92 01/13/22 07:17 36.7 C 90 18 138/65 94 O2 Del Method O2 Del Method O2 Flow Rate O2 Flow Rate 01/13/22 12:06 Nasal Cannula 2 01/13/22 09:24 01/13/22 09:24 Nasal Cannula 2 01/13/22 08:00 Nasal Cannula 2 01/13/22 07:17 Nasal Cannula 2
[2022-01-14 06:11] LABS: Basophils # (auto) 0.02 K/uL (0-0.2); Basophils % (auto) 0.1 %; Hematocrit (blood only) 28.8 % (34.1-44.9); Hemoglobin 9.8 g/dl (12.0-16.0); Immature Granulocytes # (auto) 0.29 K/uL (0.00-0.02); Immature Granulocytes % (auto) 1.9 %; Lymphocytes # (auto) 2.67 K/uL (1.2-3.4); Lymphocytes % (auto) 17.3 %; Mean Corpuscular Hemoglobin 27.9 pg (25.0-34.0); Mean Corpuscular Volume 82.1 fL (80.0-100.0); Mean Platelet Volume 9.3 fL (9.4-12.3); Monocytes # (auto) 0.98 K/uL (0.24-0.82); Monocytes % (auto) 6.4 %; Neutrophils # (auto) 11.45 K/uL (1.4-6.5); Neutrophils % (auto) 74.3 %; Platelet Count 289 K/uL (130-400); RDW Coefficient of Variation 14.1 % (11.5-14.5); RDW Standard Deviation 41.4 fL (36.4-46.3); Red Blood Count 3.51 M/uL (3.93-5.22); White Blood Count 15.41 K/ul (4.8-10.8)
[2022-01-14 07:11] LABS: C Reactive Protein 2.57 mg/dl (0-0.5); Calcium 7.2 mg/dl (8.5-10.1); Est GFR (African American) 111.3 ml/min; Potassium 3.6 mmol/L (3.5-5.1)
[2022-01-14] MEDS: INSULIN ASPART PER UNIT SC SCH ×4 (08:17→22:21)
[2022-01-14] MEDS: dexAMETHasone 6 MG in SYRINGE 0 ML IV SCH (08:18)
[2022-01-14] MEDS: CLOPIDOGREL BISULFATE 75 MG TAB PO SCH (08:18)
[2022-01-14] MEDS: MULTIVITAMIN TAB PO SCH (08:19)
[2022-01-14] MEDS: HEPARIN SOD 5,000 UNIT/0.5 ML VIAL SQ SCH ×2 (08:19→22:21)
[2022-01-14] MEDS: ASPIRIN 81 MG ECTAB PO SCH (08:19)
[2022-01-14] MEDS: CHOLECALCIFEROL 1,000 UNITS 25 MCG TAB PO SCH (08:19)
[2022-01-14] MEDS: ATORVASTATIN 40 MG TAB PO SCH (08:19)
[2022-01-14] MEDS: ADVANCED PROBIOTIC 1250 MG CAPSULE PO SCH (08:19)
[2022-01-14] MEDS ORDERED: NovoLIN-N (NPH) PER UNIT CHARGE SQ SCH (09:00)
--- NOTE | 2022-01-14 13:03 | Hospitalist Progress Note ---
Date of Service January 14, 2022 Assessment & Plan (1) COVID-19: (2) Hypoxia: (3) Acute hyponatremia: (4) Pneumonia: (5) Rheumatoid arthritis: (6) CAD (coronary atherosclerotic disease): (7) Diabetes type 1, controlled: Plan Plan Hypoxia / Shortness of Breath COVID-19 PNA Possibly with superimposed bacterial pneumonia.Already had a course of Paxlovid; no benefit of remdesivir since past early days of covid. -CRP improving -continue steroids for 10days/till discharge - start date 01/06/2022. will need her home prednisone for RA resumed once dexamethasone is off, -with elevated procal - continue Unasyn and Doxy for possible superimposed bacterial pneumonia, -Received one dose of lasix on 01/07 for concern of hypervolemia. recheck CXR with improved fluid overload findings -encouraged incentive spirometer. -NC O2 - SaO2 improving -once oxygenation stays stable - consider d/c home on O2. unable to do 2 step due to bilateral bka. Bloody sputum -improved with humidifying O2. -follow Acute Hypovolemic Hyponatremia-Na 108 on admission.sOsm on arrival at [facility] History most consistent with poor p.o. intakehypovolemic hyponatremia. Na slowly improving - 127 -follow bmp in am Episode of narrow complex tachy - 01/09 -h/o intolerance to b rafi past causing severe fatigue -no further episodes - monitor. T1DM -Pharmacy glycemic consult, continue to follow glucoses Urinary retention - suprapubic cath - Noted. Has b/l BKAs, non-ambulatory. - Monitor and maintain while here - Per son - replaces q1mo CAD - Per [facility] cardiology notes: CAD s/p RCA stent in 2019 in [place], also noted to have significant LAD and/or left main disease on PCI - Continue ASA, clopidogrel, atorvastatin - Trialed BBs in the past, per [facility] Cardiology notes, but unfortunately experienced significant fatigue RA - Stable. On Abatacept q4wk per Son. - Hold home prednisone given ongoing dexamethasone therapy Plan Code: FULL CODE Diet: CC when appropriate PPX: Heparin subcu Dispo: PCU for now, bilateral bka. case mx working on rehab placement - awaiting insurance auth Admission and Anticipated Discharge Date Admission Date: January 06, 2022 Subjective seen this am. sitting up in the bed. pleasant. feeling stronger. has been spending time in the chair no chest pain, shortness of breath, cough. no fever. Physical Exam Constitutional: WD/WN, vitals as above Respiratory: normal respiratory effort, lungs clear to auscultation Cardiovascular: RRR, no murmur, no edema Psychiatric: AAOx2 Results & Data Results & Data ([facility]) Vital Signs (Past 12 Hours) Vital Signs Temp Pulse Resp BP Pulse Ox Pulse Ox O2 Del Method 01/14/22 11:33 37.0 C 99 H 18 115/55 L 96 Nasal Cannula 01/14/22 08:00 95 01/14/22 08:14 36.8 C 87 17 120/56 L 92 Nasal Cannula 01/14/22 03:02 36.8 C 82 17 134/58 L 96 Nasal Cannula O2 Del Method O2 Flow Rate O2 Flow Rate 01/14/22 11:33 2 01/14/22 08:00 Nasal Cannula 2 01/14/22 08:14 2 01/14/22 03:02 2
[2022-01-15] MEDS ORDERED: NovoLIN-N (NPH) PER UNIT CHARGE SQ SCH (08:00)
[2022-01-15] MEDS: ASPIRIN 81 MG ECTAB PO SCH (08:05)
[2022-01-15] MEDS: dexAMETHasone 6 MG in SYRINGE 0 ML IV SCH (08:05)
[2022-01-15] MEDS: ATORVASTATIN 40 MG TAB PO SCH (08:05)
[2022-01-15] MEDS: CLOPIDOGREL BISULFATE 75 MG TAB PO SCH (08:05)
[2022-01-15] MEDS: HEPARIN SOD 5,000 UNIT/0.5 ML VIAL SQ SCH ×2 (08:05→22:28)
[2022-01-15] MEDS: ADVANCED PROBIOTIC 1250 MG CAPSULE PO SCH (08:05)
[2022-01-15] MEDS: MULTIVITAMIN TAB PO SCH (08:05)
[2022-01-15] MEDS: CHOLECALCIFEROL 1,000 UNITS 25 MCG TAB PO SCH (08:06)
[2022-01-15] MEDS: INSULIN ASPART PER UNIT SC SCH ×4 (08:48→22:28)
--- NOTE | 2022-01-15 13:23 | Pharmacy Report ---
Pharmacy Glycemic Short Note 2 - Date of Service January 15, 2022 - Glycemic Short BSG Results (Last 24 hours): 01/14/22 01/14/22 01/15/22 16:49 20:25 07:50 POC Glucose 232 H 190 H 101 H 01/15/22 11:36 POC Glucose 197 H OUTPATIENT ANTIDIABETIC REGIMEN: * insulin pump - basal 6.25 units/day, TDD of 22 units/day, "guesstimates boluses/manually doses" - follows [facility] (pulled settings from prior note) ASSESSMENT: 01/15 * Fasting this AM 101 mg/dL, lantus was held yesterday, will restart with dinner with scale. NPH given this AM with dexamethasone (this was last scheduled dose of dex- will not continue). * BSGs trend up with dinner but do come down, patient refused lunch insulin yesterday, can consider slight tightening of correction/carb ratio if trend continues today 01/12 * 17 units SQ given over last 24 hrs, PO intake was a little better yesterday per carb counts and significantly better with breakfast today * Fasting BSG 71-95 this AM with 12 units basal on board. Will titrate basal down given GLU of 71 on today's chemistry. * Post-prandial BSGs acceptable with current Novolog doses. Will lessing correctional insulin dose at bedtime given AM BSGs less than 100 01/11 * 19 units SQ given over last 24 hrs, PO intake had been poor * Fasting BSG 74-83 this AM with 16 units basal on board, will titrate basal down * Post-prandial BSGs acceptable for the most part yesterday 01/10 * 31 units SQ given over last 24 hrs again while tolerating small meals * Fasting BSG 139 this AM with 14 units basal on board and following receipt of 4 units correctional insulin overnight - will continue to up-titrate AM basal dose slightly while dexamethasone continues. * Post-prandial BSGs elevated yesterday, will escalate breakfast and lunch Novolog doses 01/09 * 18 units SQ insulin given over last 24 hrs while tolerating small meals (10- 20gm CHO per meal) * Fasting BSG elevated with 8 units basal on board (FBS 167-181). Will increase basal insulin dose as dexamethasone IV continues * Post-prandial BSG control reasonable yesterday with current CF/CR. May require a larger prandial dose with breakfast if BSG continues to spike with lunch. PLAN FOR INPATIENT GLYCEMIC CONTROL: * Hold outpatient oral diabetes medications * Basal insulin * Lantus 3/6 units scaled with dinner; * Bolus insulin * NovoLog per scale ACHS or Q6hrs while NPO * Goal Range: Low 110 mg/dL - High 160 mg/dL * Correction Factor: 30 mg/dL/unit AC; correction factor 50mg/dL/unit at HS * Nutritional / Prandial insulin per carb ratio of 1 unit per 10 grams CHO consumed with meals; 25 grams CHO at bedtime
--- NOTE | 2022-01-15 13:36 | Hospitalist Progress Note ---
Date of Service January 15, 2022 Assessment & Plan (1) Hypoxia: Plan: Hypoxia/dyspnea/COVID-19 PNA Possibly with superimposed bacterial pneumonia.Already had a course of Paxlovid; no benefit of Remdesivir since past early days of COVID. -CRP improving -continue steroids for 10days/till discharge - start date 01/06/2022. will need her home prednisone for RA resumed once dexamethasone is off -with elevated procalcitonin- continue Unasyn and Doxy for possible superimposed bacterial pneumonia, -Received one dose of Lasix on 01/07 for concern of hypervolemia. recheck CXR with improved fluid overload findings -encouraged incentive spirometer. -NC O2 - SaO2 improving -once oxygenation stays stable - consider d/c home on O2. unable to do 2 step due to bilateral bka. Acute Hypovolemic Hyponatremia-Na 108 on admission.sOsm on arrival at [facility] History most consistent with poor p.o. intakehypovolemic hyponatremia. Na slowly improving - 127 Episode of narrow complex tachy - 01/09 -h/o intolerance to b rafi past causing severe fatigue -no further episodes T1DM -Pharmacy glycemic consult, continue to follow glucose Urinary retention - suprapubic cath - Noted. Has b/l BKAs, non-ambulatory. - Monitor and maintain while here - Per son - replaces q1mo CAD - Per [facility] cardiology notes: CAD s/p RCA stent in 2019 in [place], also noted to have significant LAD and/or left main disease on PCI - Continue ASA, clopidogrel, atorvastatin - Trialed BBs in the past, per [facility] Cardiology notes, but unfortunately experienced significant fatigue RA - Stable. On Abatacept q4wk per Son. - Hold home prednisone given ongoing dexamethasone therapy Plan Code: FULL CODE Diet: CC when appropriate PPX: Subcutaneous Heparin Dispo: PCU for now, bilateral bka. Case management working on rehab placement - awaiting insurance authorization (2) COVID-19: (3) Acute hyponatremia: (4) Pneumonia: (5) Rheumatoid arthritis: (6) CAD (coronary atherosclerotic disease): (7) Diabetes type 1, controlled: Admission and Anticipated Discharge Date Admission Date: January 06, 2022 Supervising Physician Co-Signing Physician Notes I personally examined the patient and verified all rudolph points of history and exam, discussed case, and agree with decision making with Dr Berry feeling OK - discussed rehab denial - she's OK with SNF vitals noted nad heent nc at mmm breathing unlaobred no accessory muscles good effort Weaknessrehab denied, [id number] refused. Reported that they would approve SNF. Await SNF. Stable for medical Subjective No acute events overnight. No acute complaints this morning. Patient feels muc h better today. She reports improved breathing. She denies shortness of breath, chest pain, or weakness. Review of Systems Review of Systems: All systems reviewed & are unremarkable except as noted in HPI & below Physical Exam Physical Exam: General: Well-appearing, alert, interactive, and in no acute distress. HEENT: Normocephalic, atraumatic. EOM intact. Good conjugate gaze. Nares patent. Moist mucosal membranes. Neck: Supple. No lymphadenopathy. Normal ROM. CV: Regular rate and rhythm. Normal S1 and S2. No murmurs gallops or rubs. Respiratory: Normal respiratory effort on 2 L nasal cannula. Basilar crackles L >R. No rhonchi or wheezes heard on auscultation. Abdomen: Soft, nondistended abdomen. No bruits heard on auscultation. No tenderness to deep palpation. Extremities: Capillary refill <2 sec. 2+ dp equal bilaterally. No pedal edema. Neuro: Alert and oriented x3. Skin: Clean, dry, and intact. No rashes, bruises, or erythema. Results & Data Results & Data ([facility]) Vital Signs (Past 12 Hours) Vital Signs Temp Pulse Pulse Resp BP Pulse Ox Pulse Ox 01/15/22 12:00 36.8 C 89 16 112/55 L 97 01/15/22 10:56 82 01/15/22 10:56 01/15/22 08:00 94 01/15/22 07:00 36.7 C 85 18 117/60 95 01/15/22 03:03 36.8 C 81 18 101/52 L 93 01/15/22 01:48 79 O2 Del Method O2 Del Method O2 Flow Rate O2 Flow Rate 01/15/22 12:00 01/15/22 10:56 01/15/22 10:56 Nasal Cannula 2 01/15/22 08:00 Nasal Cannula 2 01/15/22 07:00 01/15/22 03:03 Room Air 01/15/22 01:48 Resident Activity Tracking Resident Involvement: Resident Care Provided Care Provided: Adult Hospital Medicine
--- NOTE | 2022-01-15 13:56 | Pharmacy Report ---
Pharmacy Glycemic Short Note 2 - Date of Service January 15, 2022 - Glycemic Short BSG Results (Last 24 hours): 01/14/22 01/14/22 01/15/22 16:49 20:25 07:50 POC Glucose 232 H 190 H 101 H 01/15/22 11:36 POC Glucose 197 H OUTPATIENT ANTIDIABETIC REGIMEN: * insulin pump - basal 6.25 units/day, TDD of 22 units/day, "guesstimates boluses/manually doses" - follows [facility] (pulled settings from prior note) ASSESSMENT: 01/12 * 17 units SQ given over last 24 hrs, PO intake was a little better yesterday per carb counts and significantly better with breakfast today * Fasting BSG 71-95 this AM with 12 units basal on board. Will titrate basal down given GLU of 71 on today's chemistry. * Post-prandial BSGs acceptable with current Novolog doses. Will lessing correctional insulin dose at bedtime given AM BSGs less than 100 01/11 * 19 units SQ given over last 24 hrs, PO intake had been poor * Fasting BSG 74-83 this AM with 16 units basal on board, will titrate basal down * Post-prandial BSGs acceptable for the most part yesterday 01/10 * 31 units SQ given over last 24 hrs again while tolerating small meals * Fasting BSG 139 this AM with 14 units basal on board and following receipt of 4 units correctional insulin overnight - will continue to up-titrate AM basal dose slightly while dexamethasone continues. * Post-prandial BSGs elevated yesterday, will escalate breakfast and lunch Novolog doses 01/09 * 18 units SQ insulin given over last 24 hrs while tolerating small meals (10- 20gm CHO per meal) * Fasting BSG elevated with 8 units basal on board (FBS 167-181). Will increase basal insulin dose as dexamethasone IV continues * Post-prandial BSG control reasonable yesterday with current CF/CR. May require a larger prandial dose with breakfast if BSG continues to spike with lunch. PLAN FOR INPATIENT GLYCEMIC CONTROL: * Hold outpatient oral diabetes medications * Basal insulin * Lantus 6 units Q AM; scaled dosing at HS (0 units if BSG less than 140, 2 units if BSG 140-220, 4 units if BSG greater than 220) * Bolus insulin * NovoLog per scale ACHS or Q6hrs while NPO * Goal Range: Low 110 mg/dL - High 160 mg/dL * Correction Factor: 30 mg/dL/unit AC; correction factor 50mg/dL/unit at HS * Nutritional / Prandial insulin per carb ratio of 1 unit per 10 grams CHO consumed with meals
[2022-01-15] MEDS ORDERED: LANTUS PER UNIT CHARGE SQ ONE (16:30)
--- NOTE | 2022-01-15 18:36 | Billing Data ---
Date of Service January 15, 2022 Coding Level of Care Code 61833 Subseq Hosp Care Lvl 2
--- NOTE | 2022-01-16 07:14 | Hospitalist Progress Note ---
Date of Service January 16, 2022 Assessment & Plan (1) Hypoxia: Plan: 71-year-old woman with history of type 1 diabetes, diabetic retinopathy, bilateral BKA's, coronary artery disease status post RCA stent in 2019, and significant LAD, and chronic indwelling Low who presented for evaluation of dyspnea weakness and is currently being treated for COVID-19 pneumonia. Currently awaiting placement. Hypoxia/dyspnea/COVID-19 PNA Possibly with superimposed bacterial pneumonia.Already had a course of Paxlovid; no benefit of Remdesivir since past early days of COVID. -CRP improving -continue steroids for 10days/till discharge - start date 01/06/2022. will need her home prednisone for RA resumed once dexamethasone is off -with elevated procalcitonin- continue Unasyn and Doxy for possible superimposed bacterial pneumonia -Received one dose of Lasix on 01/07 for concern of hypervolemia. recheck CXR with improved fluid overload findings -encouraged incentive spirometer. -NC O2 - SaO2 improving -once oxygenation stays stable - consider discharging with home oxygen. unable to do 2 step due to bilateral BKA. * Currently awaiting transfer to [facility] on Saturday. Bed available. Acute Hypovolemic Hyponatremia-Na 108 on admission.sOsm on arrival at [facility] History most consistent with poor p.o. intakehypovolemic hyponatremia. Na continues to slowly improve. Episode of narrow complex tachy - 01/09 -h/o intolerance to b rafi past causing severe fatigue -no further episodes T1DM -Pharmacy glycemic consult, continue to follow glucose Urinary retention - suprapubic cath - Noted. Has b/l BKAs, non-ambulatory. - Monitor and maintain while here - Per son - replaces q1mo CAD - Per [facility] cardiology notes: CAD s/p RCA stent in 2019 in [place], also noted to have significant LAD and/or left main disease on PCI - Continue ASA, clopidogrel, atorvastatin - Trialed BBs in the past, per [facility] Cardiology notes, but unfortunately experienced significant fatigue RA - Stable. On Abatacept q4wk per Son. - Hold home prednisone given ongoing dexamethasone therapy Plan Code: FULL CODE Diet: CC when appropriate PPX: Subcutaneous Heparin Dispo: PCU for now, bilateral bka. Awaiting transfer to [facility] ([facility]) on Sat. (2) COVID-19: (3) Acute hyponatremia: (4) Pneumonia: (5) Rheumatoid arthritis: (6) CAD (coronary atherosclerotic disease): (7) Diabetes type 1, controlled: Admission and Anticipated Discharge Date Admission Date: January 06, 2022 Supervising Physician Co-Signing Physician Notes I personally examined the patient and verified all rudolph points of history and exam, discussed case, and agree with decision making with Dr Berry No complaints, no new issues. Awaiting SNF placement vitals noted nad heent nc at mmm breathing unlaobred no accessory muscles good effort Weaknessrehab denied, [id number] refused. Reported that they would approve SNF. Await SNF approval and bed availability. Overall stable Subjective Desaturated to the high 80s on room air. Subsequently improved on 2 L nasal cannula. Otherwise, no acute events overnight. This morning, patient has no acute complaints. She feels better overall versus yesterday. She denies shortness of breath, cough, chest tightness, or wheeze. Review of Systems Review of Systems: All systems reviewed & are unremarkable except as noted in HPI & below Physical Exam Physical Exam: General: Well-appearing, alert, interactive, and in no acute distress. HEENT: Normocephalic, atraumatic. EOM intact. Good conjugate gaze. Nares patent. Moist mucosal membranes. Neck: Supple. No lymphadenopathy. Normal ROM. CV: Regular rate and rhythm. Normal S1 and S2. No murmurs gallops or rubs. Respiratory: Normal respiratory effort on 2 L nasal cannula. Basilar crackles L >R. No rhonchi or wheezes heard on auscultation. Abdomen: Soft, nondistended abdomen. No bruits heard on auscultation. No tenderness to deep palpation. Extremities: Capillary refill <2 sec. 2+ dp equal bilaterally. No pedal edema. Neuro: Alert and oriented x3. Skin: Clean, dry, and intact. No rashes, bruises, or erythema. Results & Data Results & Data ([facility]) Vital Signs (Past 12 Hours) Vital Signs Temp Pulse Pulse Resp BP Pulse Ox O2 Del Method 01/16/22 03:03 36.6 C 75 16 126/63 96 Room Air 01/16/22 02:18 78 01/15/22 22:15 Room Air 01/15/22 22:31 36.7 C 94 H 17 128/66 95 Room Air Resident Activity Tracking Resident Involvement: Resident Care Provided Care Provided: Adult Hospital Medicine
[2022-01-16] MEDS: CLOPIDOGREL BISULFATE 75 MG TAB PO SCH (08:28)
[2022-01-16] MEDS: ATORVASTATIN 40 MG TAB PO SCH (08:28)
[2022-01-16] MEDS: CHOLECALCIFEROL 1,000 UNITS 25 MCG TAB PO SCH (08:28)
[2022-01-16] MEDS: ASPIRIN 81 MG ECTAB PO SCH (08:28)
[2022-01-16] MEDS: HEPARIN SOD 5,000 UNIT/0.5 ML VIAL SQ SCH ×2 (08:29→20:58)
[2022-01-16] MEDS: MULTIVITAMIN TAB PO SCH (08:30)
[2022-01-16] MEDS: ADVANCED PROBIOTIC 1250 MG CAPSULE PO SCH (08:30)
[2022-01-16] MEDS ORDERED: NovoLIN-N (NPH) PER UNIT CHARGE SQ SCH (09:00)
[2022-01-16] MEDS ORDERED: dexAMETHasone 4 MG TAB PO SCH (09:00)
[2022-01-16] MEDS: INSULIN ASPART PER UNIT SC SCH ×4 (09:10→20:50)
--- NOTE | 2022-01-16 12:44 | Pharmacy Report ---
Pharmacy Glycemic Short Note 2 - Date of Service January 16, 2022 - Glycemic Short BSG Results (Last 24 hours): 01/15/22 01/15/22 01/16/22 16:49 21:57 07:34 POC Glucose 105 H 208 H 151 H 01/16/22 11:07 POC Glucose 218 H OUTPATIENT ANTIDIABETIC REGIMEN: * insulin pump - basal 6.25 units/day, TDD of 22 units/day, "guesstimates boluses/manually doses" - follows [facility] (pulled settings from prior note) ASSESSMENT: 01/16: * BSGs [phone]/dL the last 24 hours. Fasting this AM within goal range. * Tolerating diet. Dexamethasone modified to 4mg PO daily this AM (changed to home prednisone starting tomorrow AM). * Given continuation of dexamethasone at reduced dose today, will administer 6 units NPH with dex. Continue HS Lantus scale with dinner. Reassess basal in AM. 01/15 * Fasting this AM 101 mg/dL, lantus was held yesterday, will restart with dinner with scale. NPH given this AM with dexamethasone (this was last scheduled dose of dex- will not continue). * BSGs trend up with dinner but do come down, patient refused lunch insulin yesterday, can consider slight tightening of correction/carb ratio if trend continues today 01/12 * 17 units SQ given over last 24 hrs, PO intake was a little better yesterday per carb counts and significantly better with breakfast today * Fasting BSG 71-95 this AM with 12 units basal on board. Will titrate basal down given GLU of 71 on today's chemistry. * Post-prandial BSGs acceptable with current Novolog doses. Will lessing correctional insulin dose at bedtime given AM BSGs less than 100 01/11 * 19 units SQ given over last 24 hrs, PO intake had been poor * Fasting BSG 74-83 this AM with 16 units basal on board, will titrate basal down * Post-prandial BSGs acceptable for the most part yesterday 01/10 * 31 units SQ given over last 24 hrs again while tolerating small meals * Fasting BSG 139 this AM with 14 units basal on board and following receipt of 4 units correctional insulin overnight - will continue to up-titrate AM basal dose slightly while dexamethasone continues. * Post-prandial BSGs elevated yesterday, will escalate breakfast and lunch Novolog doses 01/09 * 18 units SQ insulin given over last 24 hrs while tolerating small meals (10- 20gm CHO per meal) * Fasting BSG elevated with 8 units basal on board (FBS 167-181). Will increase basal insulin dose as dexamethasone IV continues * Post-prandial BSG control reasonable yesterday with current CF/CR. May require a larger prandial dose with breakfast if BSG continues to spike with lunch. PLAN FOR INPATIENT GLYCEMIC CONTROL: * Hold outpatient oral diabetes medications * Basal insulin * Lantus 3/6 units scaled with dinner; * Bolus insulin * NovoLog per scale ACHS or Q6hrs while NPO * Goal Range: Low 110 mg/dL - High 160 mg/dL * Correction Factor: 30 mg/dL/unit AC; correction factor 50mg/dL/unit at HS * Nutritional / Prandial insulin per carb ratio of 1 unit per 10 grams CHO consumed with meals; 25 grams CHO at bedtime
[2022-01-16] MEDS ORDERED: LANTUS PER UNIT CHARGE SQ ONE (16:30)
--- NOTE | 2022-01-16 17:42 | Billing Data ---
Date of Service January 16, 2022 Coding Level of Care Code 71441 Subseq Hosp Care Lvl 2
[2022-01-17] MEDS: MULTIVITAMIN TAB PO SCH (07:57)
[2022-01-17] MEDS: CLOPIDOGREL BISULFATE 75 MG TAB PO SCH (07:57)
[2022-01-17] MEDS: predniSONE 2.5 MG TAB PO SCH (07:57)
[2022-01-17] MEDS: ASPIRIN 81 MG ECTAB PO SCH (07:57)
[2022-01-17] MEDS: ATORVASTATIN 40 MG TAB PO SCH (07:57)
[2022-01-17] MEDS: CHOLECALCIFEROL 1,000 UNITS 25 MCG TAB PO SCH (07:58)
[2022-01-17] MEDS: ADVANCED PROBIOTIC 1250 MG CAPSULE PO SCH (07:58)
[2022-01-17] MEDS: HEPARIN SOD 5,000 UNIT/0.5 ML VIAL SQ SCH ×2 (07:58→21:16)
[2022-01-17] MEDS: INSULIN ASPART PER UNIT SC SCH ×4 (08:38→20:31)
[2022-01-17] MEDS: LANTUS PER UNIT CHARGE SQ SCH (09:14)
--- NOTE | 2022-01-17 17:07 | Hospitalist Progress Note ---
Date of Service January 17, 2022 Assessment & Plan (1) Hypoxia: Plan: 71-year-old woman with history of type 1 diabetes, diabetic retinopathy, bilateral BKA's, coronary artery disease status post RCA stent in 2019, and significant LAD, and chronic indwelling Low who presented for evaluation of dyspnea weakness and is currently being treated for COVID-19 pneumonia. Currently awaiting placement. Hypoxia/dyspnea/COVID-19 PNA Possibly with superimposed bacterial pneumonia.Already had a course of Paxlovid; no benefit of Remdesivir since past early days of COVID. -CRP improving -continue steroids for 10days/till discharge - start date 01/06/2022. will need her home prednisone for RA resumed once dexamethasone is off -with elevated procalcitonin- continue Unasyn and Doxy for possible superimposed bacterial pneumonia -Received one dose of Lasix on 01/07 for concern of hypervolemia. recheck CXR with improved fluid overload findings -encouraged incentive spirometer. -NC O2 - SaO2 improving -once oxygenation stays stable - consider discharging with home oxygen. unable to do 2 step due to bilateral BKA. Acute Hypovolemic Hyponatremia-Na 108 on admission.sOsm on arrival at [facility] History most consistent with poor p.o. intakehypovolemic hyponatremia. Na continues to slowly improve. Episode of narrow complex tachy - 01/09 -h/o intolerance to b rafi past causing severe fatigue -no further episodes T1DM -Pharmacy glycemic consult, continue to follow glucose Urinary retention - suprapubic cath - Noted. Has b/l BKAs, non-ambulatory. - Monitor and maintain while here - Per son - replaces q1mo CAD - Per [facility] cardiology notes: CAD s/p RCA stent in 2019 in [place], also noted to have significant LAD and/or left main disease on PCI - Continue ASA, clopidogrel, atorvastatin - Trialed BBs in the past, per [facility] Cardiology notes, but unfortunately experi enced significant fatigue RA - Stable. On Abatacept q4wk per Son. - Hold home prednisone given ongoing dexamethasone therapy Plan Code: FULL CODE Diet: CC when appropriate PPX: Subcutaneous Heparin Dispo: PCU for now, bilateral bka. Awaiting transfer to SNF ([facility]) on Saturday. (2) COVID-19: (3) Acute hyponatremia: (4) Pneumonia: (5) Rheumatoid arthritis: (6) CAD (coronary atherosclerotic disease): (7) Diabetes type 1, controlled: Admission and Anticipated Discharge Date Admission Date: January 06, 2022 Supervising Physician Co-Signing Physician Notes I personally examined the patient and verified all rudolph points of history and exam, discussed case, and agree with decision making with Dr Berry No complaints, no new issues. still awaiting SNF placement for rehab vitals noted nad heent nc at mmm breathing unlabored no accessory muscles good effort Weaknessrehab denied, [id number] refused. Reported that they would approve SNF. Await SNF approval and bed availability. Overall stable, dc covid precautions Subjective Overnight, patient desaturated to the high 80s on room air. Normally recovered to the high 90s on 1 L nasal cannula, where she remains. Patient is awake in bed this morning on arrival. She reports feeling much improved this morning versus yesterday. She denies shortness of breath, cough, dizziness, or weakness. Review of Systems Review of Systems: All systems reviewed & are unremarkable except as noted in HPI & below Physical Exam Physical Exam: General: Well-appearing, alert, interactive, and in no acute distress. HEENT: Normocephalic, atraumatic. EOM intact. Good conjugate gaze. Nares patent. Moist mucosal membranes. Neck: Supple. No lymphadenopathy. Normal ROM. CV: Regular rate and rhythm. Normal S1 and S2. No murmurs gallops or rubs. Respiratory: Normal respiratory effort. Mild bibasilar crackles L >R. No rhonchi, or wheezes. Abdomen: Soft, nondistended abdomen. No bruits heard on auscultation. No tenderness to deep palpation. No guarding or rebound. Extremities: Capillary refill <2 sec. 2+ dp equal bilaterally. No pedal edema. Neuro: Alert and oriented x3. Skin: Clean, dry, and intact. No rashes, bruises, or erythema. Results & Data Results & Data ([facility]) Vital Signs (Past 12 Hours) Vital Signs Temp Pulse Resp BP Pulse Ox O2 Del Method O2 Flow Rate 01/17/22 16:32 36.7 C 88 19 102/53 L 92 Room Air 01/17/22 12:51 92 Room Air 01/17/22 07:38 36.6 C 83 20 98/62 L 96 Nasal Cannula 1 Resident Activity Tracking Resident Involvement: Resident Care Provided Care Provided: Adult Hospital Medicine
--- NOTE | 2022-01-17 17:54 | Billing Data ---
Date of Service January 17, 2022 Coding Level of Care Code 50064 Subseq Hosp Care Lvl 1
[2022-01-18] MEDS: INSULIN ASPART PER UNIT SC SCH ×4 (08:48→23:33)
[2022-01-18] MEDS: CLOPIDOGREL BISULFATE 75 MG TAB PO SCH (08:49)
[2022-01-18] MEDS: ASPIRIN 81 MG ECTAB PO SCH (08:49)
[2022-01-18] MEDS: predniSONE 2.5 MG TAB PO SCH (08:49)
[2022-01-18] MEDS: CHOLECALCIFEROL 1,000 UNITS 25 MCG TAB PO SCH (08:49)
[2022-01-18] MEDS: HEPARIN SOD 5,000 UNIT/0.5 ML VIAL SQ SCH ×2 (08:49→19:43)
[2022-01-18] MEDS: MULTIVITAMIN TAB PO SCH (08:49)
[2022-01-18] MEDS: ATORVASTATIN 40 MG TAB PO SCH (08:49)
[2022-01-18] MEDS: ADVANCED PROBIOTIC 1250 MG CAPSULE PO SCH (08:49)
[2022-01-18] MEDS: LANTUS PER UNIT CHARGE SQ SCH (08:59)
--- NOTE | 2022-01-18 11:12 | Hospitalist Progress Note ---
Date of Service January 18, 2022 Assessment & Plan (1) Hypoxia: Plan: 71-year-old woman with history of type 1 diabetes, diabetic retinopathy, bilateral BKA's, coronary artery disease status post RCA stent in 2019, and significant LAD, and chronic indwelling Low who presented for evaluation of dyspnea weakness and is currently being treated for COVID-19 pneumonia. Currently awaiting placement at SNF. Hypoxia/dyspnea/COVID-19 PNA Possibly with superimposed bacterial pneumonia.Already had a course of Paxlovid; no benefit of Remdesivir since past early days of COVID. -CRP improving -continue steroids for 10days/till discharge - start date 01/06/2022. will need her home prednisone for RA resumed once dexamethasone is off -with elevated procalcitonin- continue Unasyn and Doxy for possible superimposed bacterial pneumonia -Received one dose of Lasix on 01/07 for concern of hypervolemia. recheck CXR with improved fluid overload findings -encouraged incentive spirometer. -NC O2 - SaO2 improving -once oxygenation stays stable -we will discharge on home oxygen (unable to do 2 step due to bilateral BKA) Acute Hypovolemic Hyponatremia-Na 108 on admission.sOsm on arrival at [facility] -History most consistent with poor p.o. intakehypovolemic hyponatremia. -Na continues to slowly improve. Episode of narrow complex tachy - 01/09 -h/o intolerance to b rafi past causing severe fatigue -no further episodes T1DM -Pharmacy glycemic consult, continue to follow glucose Urinary retention - suprapubic cath - Noted. Has b/l BKAs, non-ambulatory. - Monitor and maintain while here - Per son - replaces q1mo CAD - Per [facility] cardiology notes: CAD s/p RCA stent in 2019 in [place], also noted to have significant LAD and/or left main disease on PCI - Continue ASA, clopidogrel, atorvastatin - Trialed BBs in the past, per [facility] Cardiology notes, but unfortunately exp erienced significant fatigue RA - Stable. On Abatacept q4wk per Son. - Hold home prednisone given ongoing dexamethasone therapy Plan Code: FULL CODE Diet: CC when appropriate PPX: Subcutaneous Heparin Dispo: PCU for now, bilateral bka. Awaiting placement at SNF (2) COVID-19: (3) Acute hyponatremia: (4) Pneumonia: (5) Rheumatoid arthritis: (6) CAD (coronary atherosclerotic disease): (7) Diabetes type 1, controlled: Admission and Anticipated Discharge Date Admission Date: January 06, 2022 Supervising Physician Co-Signing Physician Notes I personally examined the patient and verified all rudolph points of history and exam, discussed case, and agree with decision making with Dr Berry No problems. Still awaiting SNF vitals noted nad heent nc at mmm breathing unlabored no accessory muscles good effort Weaknessrehab denied, [id number] refused. Still awaiting SNF. Subjective No acute events overnight. Patient awake in bed this morning upon arrival. She has no acute complaints today. Overall, feels much better than yesterday. Review of Systems Review of Systems: All systems reviewed & are unremarkable except as noted in HPI & below Physical Exam Physical Exam: General: Well-appearing, alert, interactive, and in no acute distress. HEENT: Normocephalic, atraumatic. EOM intact. Good conjugate gaze. Nares patent. Moist mucosal membranes. Neck: Supple. No lymphadenopathy. Normal ROM. CV: Regular rate and rhythm. Normal S1 and S2. No murmurs gallops or rubs. Respiratory: Normal respiratory effort. Bibasilar crackles, R >L. No rhonchi, or wheezes. Abdomen: Soft, nondistended abdomen. No bruits heard on auscultation. No tenderness to deep palpation. No guarding or rebound. Extremities: Capillary refill <2 sec. 2+ dp equal bilaterally. No pedal edema. Neuro: Alert and oriented x3. Skin: Clean, dry, and intact. No rashes, bruises, or erythema. Results & Data Results & Data ([facility]) Vital Signs (Past 12 Hours) Vital Signs Temp Pulse Resp BP Pulse Ox Pulse Ox O2 Del Method 01/18/22 08:00 93 01/18/22 07:29 36.9 C 86 19 109/60 92 Room Air 01/18/22 03:07 37.1 C 83 16 117/66 92 Room Air 01/17/22 23:07 36.7 C 87 18 114/62 92 Room Air O2 Del Method 01/18/22 08:00 Room Air 01/18/22 07:29 01/18/22 03:07 01/17/22 23:07 Resident Activity Tracking Resident Involvement: Resident Care Provided Care Provided: Adult [facility]
--- NOTE | 2022-01-18 16:37 | Billing Data ---
Date of Service January 18, 2022 Coding Level of Care Code 11391 Subseq Hosp Care Lvl 1
[2022-01-19] MEDS: CARBOHYDRATES FOR HYPOGLYCEMIA PO PRN ×2 (07:42→07:57)
[2022-01-19] MEDS: HEPARIN SOD 5,000 UNIT/0.5 ML VIAL SQ SCH ×2 (08:09→21:00)
[2022-01-19] MEDS: ATORVASTATIN 40 MG TAB PO SCH (08:09)
[2022-01-19] MEDS: CHOLECALCIFEROL 1,000 UNITS 25 MCG TAB PO SCH (08:09)
[2022-01-19] MEDS: predniSONE 2.5 MG TAB PO SCH (08:09)
[2022-01-19] MEDS: ADVANCED PROBIOTIC 1250 MG CAPSULE PO SCH (08:09)
[2022-01-19] MEDS: ASPIRIN 81 MG ECTAB PO SCH (08:09)
[2022-01-19] MEDS: CLOPIDOGREL BISULFATE 75 MG TAB PO SCH (08:09)
[2022-01-19] MEDS: MULTIVITAMIN TAB PO SCH (08:09)
--- NOTE | 2022-01-19 08:09 | Hospitalist Progress Note ---
Date of Service January 19, 2022 Assessment & Plan (1) Hypoxia: Plan: 71-year-old woman with history of type 1 diabetes, diabetic retinopathy, bilateral BKA's, coronary artery disease status post RCA stent in 2019, and significant LAD, and chronic indwelling Low who presented for evaluation of dyspnea weakness and is currently being treated for COVID-19 pneumonia. Currently awaiting placement at SNF, tentatively on Saturday. Hypoxia/dyspnea/COVID-19 PNA Possibly with superimposed bacterial pneumonia.Already had a course of Paxlovid; no benefit of Remdesivir since past early days of COVID. -CRP improving -continue steroids for 10days/till discharge - start date 01/06/2022. will need her home prednisone for RA resumed once dexamethasone is off -with elevated procalcitonin- continue Unasyn and Doxy for possible superimposed bacterial pneumonia -Received one dose of Lasix on 01/07 for concern of hypervolemia. recheck CXR with improved fluid overload findings -encouraged incentive spirometer. -NC O2 - SaO2 improving -once oxygenation stays stable -we will discharge on home oxygen (unable to do 2 step due to bilateral BKA) Acute Hypovolemic Hyponatremia-Na 108 on admission.sOsm on arrival at [facility] -History most consistent with poor p.o. intakehypovolemic hyponatremia. -Na continues to slowly improve. Episode of narrow complex tachy - 01/09 -h/o intolerance to b rafi past causing severe fatigue -no further episodes T1DM -Pharmacy glycemic consult, continue to follow glucose Urinary retention - suprapubic cath - Noted. Has b/l BKAs, non-ambulatory. - Monitor and maintain while here - Per son - replaces q1mo CAD - Per [facility] cardiology notes: CAD s/p RCA stent in 2019 in [place], also noted to have significant LAD and/or left main disease on PCI - Continue ASA, clopidogrel, atorvastatin - Trialed BBs in the past, per [facility] Cardiology notes, but unfortunately experienced significant fatigue RA - Stable. On Abatacept q4wk per Son. - Hold home prednisone given ongoing dexamethasone therapy Plan Code: FULL CODE Diet: CC when appropriate PPX: Subcutaneous Heparin Dispo: PCU for now, bilateral bka. Awaiting placement at SNF (2) COVID-19: (3) Acute hyponatremia: (4) Pneumonia: (5) Rheumatoid arthritis: (6) CAD (coronary atherosclerotic disease): (7) Diabetes type 1, controlled: Admission and Anticipated Discharge Date Admission Date: January 06, 2022 Supervising Physician Co-Signing Physician Notes I personally examined the patient and verified all rudolph points of history and exam, discussed case, and agree with decision making with Dr Berry No problems. Still awaiting SNF she notes she was told Saturday. vitals noted nad heent nc at mmm breathing unlabored no accessory muscles good effort Weaknessrehab denied, [id number] refused. Still awaiting SNF. Anticipate transfer Saturday. Subjective No acute events overnight. Patient has no acute complaints at this time. COVID restrictions removed. Currently awaiting transfer to SNF on Saturday. Review of Systems Review of Systems: All systems reviewed & are unremarkable except as noted in HPI & below Physical Exam Physical Exam: General: Well-appearing, alert, interactive, and in no acute distress. HEENT: Normocephalic, atraumatic. EOM intact. Good conjugate gaze. Nares patent. Moist mucosal membranes. Neck: Supple. No lymphadenopathy. Normal ROM. CV: Regular rate and rhythm. Normal S1 and S2. No murmurs gallops or rubs. Respiratory: Normal respiratory effort. Bibasilar crackles. No rhonchi, or wheezes. Abdomen: Soft, nondistended abdomen. No bruits heard on auscultation. No tenderness to deep palpation. No guarding or rebound. Extremities: Capillary refill <2 sec. 2+ dp equal bilaterally. No pedal edema. Neuro: Alert and oriented x3. Skin: Clean, dry, and intact. No rashes, bruises, or erythema. Results & Data Results & Data ([facility]) Vital Signs (Past 12 Hours) Vital Signs Temp Pulse Resp BP BP Pulse Ox O2 Del Method 01/19/22 06:56 36.6 C 81 16 102/59 L 91 Room Air 01/18/22 22:56 36.6 C 73 20 113/63 95 Room Air 01/18/22 20:12 36.6 C 80 18 108/68 94 Room Air Resident Activity Tracking Resident Involvement: Resident Care Provided Care Provided: Adult [facility] Medicine
[2022-01-19] MEDS: INSULIN ASPART PER UNIT SC SCH ×4 (09:05→20:29)
[2022-01-19] MEDS: LANTUS PER UNIT CHARGE SQ SCH (09:59)
--- NOTE | 2022-01-19 11:33 | Pharmacy Report ---
Pharmacy Glycemic Short Note 2 - Date of Service January 19, 2022 - Glycemic Short BSG Results (Last 24 hours): 01/18/22 01/18/22 01/18/22 11:49 11:51 16:31 POC Glucose 312 H* 291 H 106 H 01/18/22 01/19/22 01/19/22 20:30 07:42 07:44 POC Glucose 107 H 58 L* 59 L* 01/19/22 01/19/22 01/19/22 07:57 08:14 11:09 POC Glucose 61 L* 100 H 240 H OUTPATIENT ANTIDIABETIC REGIMEN: * insulin pump - basal 6.25 units/day, TDD of 22 units/day, "guesstimates boluses/manually doses" - follows REE [facility] (pulled settings from prior note) ASSESSMENT: 01/19: * Patient hypoglycemic this AM, will reduce basal ~20% this AM * Tightened breakfast carb ratio as lunch BSG has been elevated, loosened parameters with lunch and dinner * On home prednisone 2.5 mg daily * Patient is still awaiting placement at [facility] 01/16: * BSGs 575-146-409-218mg/dL the last 24 hours. Fasting this AM within goal range. * Tolerating diet. Dexamethasone modified to 4mg PO daily this AM (changed to home prednisone starting tomorrow AM). * Given continuation of dexamethasone at reduced dose today, will administer 6 units NPH with dex. Continue HS Lantus scale with dinner. Reassess basal in AM. 01/15 * Fasting this AM 101 mg/dL, lantus was held yesterday, will restart with dinner with scale. NPH given this AM with dexamethasone (this was last scheduled dose of dex- will not continue). * BSGs trend up with dinner but do come down, patient refused lunch insulin yesterday, can consider slight tightening of correction/carb ratio if trend continues today 01/12 * 17 units SQ given over last 24 hrs, PO intake was a little better yesterday per carb counts and significantly better with breakfast today * Fasting BSG 71-95 this AM with 12 units basal on board. Will titrate basal down given GLU of 71 on today's chemistry. * Post-prandial BSGs acceptable with current Novolog doses. Will lessing correctional insulin dose at bedtime given AM BSGs less than 100 01/11 * 19 units SQ given over last 24 hrs, PO intake had been poor * Fasting BSG 74-83 this AM with 16 units basal on board, will titrate basal down * Post-prandial BSGs acceptable for the most part yesterday 01/10 * 31 units SQ given over last 24 hrs again while tolerating small meals * Fasting BSG 139 this AM with 14 units basal on board and following receipt of 4 units correctional insulin overnight - will continue to up-titrate AM basal dose slightly while dexamethasone continues. * Post-prandial BSGs elevated yesterday, will escalate breakfast and lunch Novolog doses 01/09 * 18 units SQ insulin given over last 24 hrs while tolerating small meals (10- 20gm CHO per meal) * Fasting BSG elevated with 8 units basal on board (FBS 167-181). Will increase basal insulin dose as dexamethasone IV continues * Post-prandial BSG control reasonable yesterday with current CF/CR. May require a larger prandial dose with breakfast if BSG continues to spike with lunch. PLAN FOR INPATIENT GLYCEMIC CONTROL: * Hold outpatient oral diabetes medications * Basal insulin * Lantus 6 units scaled with dinner; * Bolus insulin * NovoLog per scale ACHS or Q6hrs while NPO * Goal Range: Low 110 mg/dL - High 160 mg/dL * Correction Factor: 30 mg/dL/unit AC; correction factor 50mg/dL/unit at HS * Nutritional / Prandial insulin per carb ratio of 1 unit per 6 grams CHO consumed with breakfast; 10 with lunch/dinner; 25 grams CHO at bedtime
--- NOTE | 2022-01-19 17:48 | Billing Data ---
Date of Service January 19, 2022 Coding Level of Care Code 71798 Subseq Hosp Care Lvl 1
[2022-01-20 07:06] LABS: Basophils # (auto) 0.02 K/uL (0-0.2); Basophils % (auto) 0.2 %; Eosinophils # (auto) 0.01 K/uL (0-0.50); Eosinophils % (auto) 0.1 %; Hematocrit (blood only) 28.5 % (34.1-44.9); Hemoglobin 10.1 g/dl (12.0-16.0); Immature Granulocytes # (auto) 0.04 K/uL (0.00-0.02); Immature Granulocytes % (auto) 0.5 %; Lymphocytes # (auto) 1.41 K/uL (1.2-3.4); Lymphocytes % (auto) 16.8 %; Mean Corpuscular Hemoglobin 28.8 pg (25.0-34.0); Mean Corpuscular Hgb Conc 35.4 g/dL (32.0-36.0); Mean Corpuscular Volume 81.2 fL (80.0-100.0); Mean Platelet Volume 9.9 fL (9.4-12.3); Monocytes # (auto) 0.54 K/uL (0.24-0.82); Monocytes % (auto) 6.4 %; Neutrophils # (auto) 6.38 K/uL (1.4-6.5); Platelet Count 256 K/uL (130-400); RDW Coefficient of Variation 15.3 % (11.5-14.5); RDW Standard Deviation 44.3 fL (36.4-46.3); Red Blood Count 3.51 M/uL (3.93-5.22)
[2022-01-20] MEDS: INSULIN ASPART PER UNIT SC SCH ×4 (08:16→20:49)
--- NOTE | 2022-01-20 08:19 | Hospitalist Progress Note ---
Date of Service January 20, 2022 Assessment & Plan (1) Hypoxia: Plan: 71-year-old woman with history of type 1 diabetes, diabetic retinopathy, bilateral BKA's, coronary artery disease status post RCA stent in 2019, and significant LAD, and chronic indwelling Low who presented for evaluation of dyspnea weakness and is currently being treated for COVID-19 pneumonia. Currently accepted at [facility] ([facility]), on Saturday, pending insurance authorization. Hypoxia/dyspnea/COVID-19 PNA Possibly with superimposed bacterial pneumonia.Already had a course of Paxlovid; no benefit of Remdesivir since past early days of COVID. -CRP improving -continue steroids for 10days/till discharge - start date 01/06/2022. will need her home prednisone for RA resumed once dexamethasone is off -with elevated procalcitonin- continue Unasyn and Doxy for possible superimposed bacterial pneumonia -Received one dose of Lasix on 01/07 for concern of hypervolemia. recheck CXR with improved fluid overload findings -encouraged incentive spirometer. -NC O2 - SaO2 improving -once oxygenation stays stable -plan to discharge on home oxygen (unable to do 2 step due to bilateral BKA) Acute Hypovolemic Hyponatremia-Na 108 on admission.sOsm on arrival at [facility] -History most consistent with poor p.o. intakehypovolemic hyponatremia. -Na now stable the mid to high 120s. Episode of narrow complex tachy - 01/09 (resolved) -h/o intolerance to b rafi past causing severe fatigue -no further episodes T1DM -Pharmacy glycemic consult, continue to follow glucose Urinary retention - suprapubic cath - Noted. Has b/l BKAs, non-ambulatory. - Monitor and maintain while here - Per son - replaces q1mo CAD - Per [facility] cardiology notes: CAD s/p RCA stent in 2019 in [place], also noted to have significant LAD and/or left main disease on PCI - Continue ASA, clopidogrel, atorvastatin - Trialed BBs in the past, per [facility] Cardiology notes, but unfortunately experienced significant fatigue RA - Stable. On Abatacept q4wk per Son. - Hold home prednisone given ongoing dexamethasone therapy Plan Code: FULL CODE Diet: CC when appropriate PPX: Subcutaneous Heparin Dispo: PCU for now,bilateral bka. Accepted at [facility], pending insurance authorization. (2) COVID-19: (3) Acute hyponatremia: (4) Pneumonia: (5) Rheumatoid arthritis: (6) CAD (coronary atherosclerotic disease): (7) Diabetes type 1, controlled: Admission and Anticipated Discharge Date Admission Date: January 06, 2022 Supervising Physician Co-Signing Physician Notes I personally examined the patient and verified all rudolph points of history and exam, discussed case, and agree with decision making with Dr Berry No problems. Reading a book. Anticipate SNF Saturday. vitals noted nad heent nc at mmm breathing unlabored no accessory muscles good effort Weaknessrehab denied, [id number] refused. Waiting on SNF bed. Anticipate transfer Saturday. Subjective No acute events overnight. Patient has no acute complaints or concerns at this time. She denies shortness of breath, headache, nausea. She tolerated breakfast well. She has no acute concerns. Review of Systems Review of Systems: All systems reviewed & are unremarkable except as noted in HPI & below Physical Exam Physical Exam: General: Well-appearing, alert, interactive, and in no acute distress. HEENT: Normocephalic, atraumatic. EOM intact. Good conjugate gaze. Nares patent. Moist mucosal membranes. Neck: Supple. No lymphadenopathy. Normal ROM. CV: Regular rate and rhythm. Normal S1 and S2. No murmurs gallops or rubs. Respiratory: Normal respiratory effort. Bibasilar crackles. Mild rhonchi. No wheezes. Abdomen: Soft, nondistended abdomen. No bruits heard on auscultation. No tenderness to deep palpation. No guarding or rebound. Extremities: Capillary refill <2 sec. 2+ dp equal bilaterally. No pedal edema. Neuro: Alert and oriented x3. Skin: Clean, dry, and intact. No rashes, bruises, or erythema. Results & Data Results & Data ([facility]) Vital Signs (Past 12 Hours) Vital Signs Temp Pulse Resp BP Pulse Ox O2 Del Method 01/20/22 07:23 36.8 C 91 H 20 146/47 H 93 Room Air 01/20/22 03:23 36.9 C 90 16 117/85 93 Room Air Resident Activity Tracking Resident Involvement: Resident Care Provided Care Provided: Adult [facility] Medicine
[2022-01-20] MEDS: HEPARIN SOD 5,000 UNIT/0.5 ML VIAL SQ SCH ×2 (08:29→20:50)
[2022-01-20] MEDS: predniSONE 2.5 MG TAB PO SCH (08:30)
[2022-01-20] MEDS: ASPIRIN 81 MG ECTAB PO SCH (08:31)
[2022-01-20] MEDS: CHOLECALCIFEROL 1,000 UNITS 25 MCG TAB PO SCH (08:31)
[2022-01-20] MEDS: CLOPIDOGREL BISULFATE 75 MG TAB PO SCH (08:32)
[2022-01-20] MEDS: ATORVASTATIN 40 MG TAB PO SCH (08:32)
[2022-01-20] MEDS: MULTIVITAMIN TAB PO SCH (08:33)
[2022-01-20] MEDS: ADVANCED PROBIOTIC 1250 MG CAPSULE PO SCH ×2 (08:34→08:36)
[2022-01-20] MEDS: LANTUS PER UNIT CHARGE SQ SCH (08:37)
[2022-01-20 08:50] LABS: BUN Creatinine Ratio 30.2 (10-20); Calcium 7.3 mg/dl (8.5-10.1); Creatinine Clr Calc Pharmacy 58.5 ml/min; Est GFR (African American) 109.2 ml/min; Est GFR (Non-African American) 94.2 ml/min; Potassium 4.4 mmol/L (3.5-5.1)
[2022-01-20] MEDS ORDERED: INSULIN HUMAN REGULAR PER UNIT 3 UNITS in SYRINGE 2.97 ML IV ONE (11:45)
[2022-01-20 16:06] LABS: Appearance Urine Turbid (Clear); Blood Urine 1+ (Negative); Color Urine Dark Yellow; Epithelial Cell Urine Auto >30 /lpf (0-5); Glucose Urine UA Trace (Negative); Ketones Urine Trace (Negative); Leukocyte Esterase Urine 3+ (Negative); Nitrite Urine Negative (Negative); Protein Urine Trace (Negative); Specific Gravity Urine 1.021 (1.000-1.030); Urobilinogen Urine Negative (Negative); WBC Urine Automated >30 /hpf (0-5); pH Urine 5.5 (4.5-7.5)
[2022-01-20 16:46] LABS: Bilirubin Urine 1+ (Negative)
--- NOTE | 2022-01-20 16:52 | Billing Data ---
Date of Service January 20, 2022 Coding Level of Care Code 87710 Subseq Hosp Care Lvl 1
[2022-01-20 17:00] LABS: Bacteria Urine Automated 1+ (Negative); Mucus Urine Present (None Prsent)
[2022-01-21] MEDS: ATORVASTATIN 40 MG TAB PO SCH (08:19)
[2022-01-21] MEDS: ASPIRIN 81 MG ECTAB PO SCH (08:19)
[2022-01-21] MEDS: MULTIVITAMIN TAB PO SCH (08:20)
[2022-01-21] MEDS: CLOPIDOGREL BISULFATE 75 MG TAB PO SCH (08:20)
[2022-01-21] MEDS: CHOLECALCIFEROL 1,000 UNITS 25 MCG TAB PO SCH (08:20)
[2022-01-21] MEDS: ADVANCED PROBIOTIC 1250 MG CAPSULE PO SCH (08:20)
[2022-01-21] MEDS: INSULIN ASPART PER UNIT SC SCH ×4 (08:20→21:10)
[2022-01-21] MEDS: HEPARIN SOD 5,000 UNIT/0.5 ML VIAL SQ SCH ×2 (08:20→21:10)
[2022-01-21] MEDS: LANTUS PER UNIT CHARGE SQ SCH (08:25)
[2022-01-21] MEDS: predniSONE 2.5 MG TAB PO SCH (08:58)
[2022-01-21] MEDS: CEFDINIR 300 MG CAP PO SCH ×2 (10:31→21:10)
--- NOTE | 2022-01-21 13:34 | Hospitalist Progress Note ---
Date of Service January 21, 2022 Assessment & Plan (1) Hypoxia: Plan: 71-year-old woman with history of type 1 diabetes, diabetic retinopathy, bilateral BKA's, coronary artery disease status post RCA stent in 2019, and significant LAD, and chronic indwelling Low who presented for evaluation of dyspnea weakness and is currently being treated for COVID-19 pneumonia. Currently accepted at [facility] ([facility]), on Saturday, pending insurance authorization. Hypoxia/dyspnea/COVID-19 PNA Possibly with superimposed bacterial pneumonia.Already had a course of Paxlovid; no benefit of Remdesivir since past early days of COVID. -CRP improving -continue steroids for 10days/till discharge - start date 01/06/2022. will need her home prednisone for RA resumed once dexamethasone is off -with elevated procalcitonin- continue Unasyn and Doxy for possible superimposed bacterial pneumonia -Received one dose of Lasix on 01/07 for concern of hypervolemia. recheck CXR with improved fluid overload findings -encouraged incentive spirometer. -NC O2 - SaO2 improving -once oxygenation stays stable -plan to discharge on home oxygen (unable to do 2 step due to bilateral BKA) Acute Hypovolemic Hyponatremia-Na 108 on admission.sOsm on arrival at [facility] -History most consistent with poor p.o. intakehypovolemic hyponatremia. -Na now stable the mid to high 120s. Episode of narrow complex tachy - 01/09 (resolved) -h/o intolerance to b rafi past causing severe fatigue -no further episodes T1DM -Pharmacy glycemic consult, continue to follow glucose Urinary retention - suprapubic cath - Noted. Has b/l BKAs, non-ambulatory. - Monitor and maintain while here - Per son - replaces q1mo CAD - Per [facility] cardiology notes: CAD s/p RCA stent in 2019 in [place], also noted to have significant LAD and/or left main disease on PCI - Continue ASA, clopidogrel, atorvastatin - Trialed BBs in the past, per [facility] Cardiology notes, but unfortunately experienced significant fatigue RA - Stable. On Abatacept q4wk per son. - Hold home prednisone given ongoing dexamethasone therapy Plan Code: FULL CODE Diet: CC when appropriate PPX: Subcutaneous Heparin Dispo: PCU for now,bilateral bka. Accepted at [facility], pending insurance authorization. (2) COVID-19: (3) Acute hyponatremia: (4) Pneumonia: (5) Rheumatoid arthritis: (6) CAD (coronary atherosclerotic disease): (7) Diabetes type 1, controlled: Admission and Anticipated Discharge Date Admission Date: January 06, 2022 Supervising Physician Co-Signing Physician Notes I personally examined the patient and verified all rudolph points of history and exam, discussed case, and agree with decision making with Dr Berry Urinary symptoms improving since started by an antibiotic vitals noted nad heent nc at mmm breathing unlabored no accessory muscles good effort Weaknessrehab denied, [id number] refused. Waiting on SNF bed. Anticipate transfer Saturday. UTIsymptoms improved, continue cefdinir, change catheter prior to completion of course of antibiotics Diabetessugars a bit more erratic, pharmacy adjusting insulin. Subjective No acute events overnight. Patient has no acute complaints or concerns at this time. She denies shortness of breath, headache, nausea. Reports improved suprapubic pain. She tolerated breakfast well. Review of Systems Review of Systems: All systems reviewed & are unremarkable except as noted in HPI & below Physical Exam Physical Exam: General: Well-appearing, alert, interactive, and in no acute distress. HEENT: Normocephalic, atraumatic. EOM intact. Good conjugate gaze. Nares patent. Moist mucosal membranes. Neck: Supple. No lymphadenopathy. Normal ROM. CV: Regular rate and rhythm. Normal S1 and S2. No murmurs gallops or rubs. Respiratory: Normal respiratory effort. Bibasilar crackles. No rhonchi or wheezes. Abdomen: Soft, nondistended abdomen. No bruits heard on auscultation. No tenderness to deep palpation. No guarding or rebound. Neuro: Alert and oriented x3. Skin: Clean, dry, and intact. No rashes, bruises, or erythema. Results & Data Results & Data ([facility]) Vital Signs (Past 12 Hours) Vital Signs Temp Pulse Resp BP BP Pulse Ox O2 Del Method 01/21/22 11:35 36.5 C 84 20 122/83 96 Room Air 01/21/22 07:53 36.9 C 89 18 129/49 L 97 Room Air 01/21/22 03:50 36.6 C 83 18 108/55 L 93 Room Air Resident Activity Tracking Resident Involvement: Resident Care Provided Care Provided: Adult [facility] Medicine
--- NOTE | 2022-01-21 18:43 | Billing Data ---
Date of Service January 21, 2022 Coding Level of Care Code 27493 Subseq Hosp Care Lvl 2
[2022-01-22] MEDS: predniSONE 2.5 MG TAB PO SCH (07:59)
[2022-01-22] MEDS: CLOPIDOGREL BISULFATE 75 MG TAB PO SCH (07:59)
[2022-01-22] MEDS: CEFDINIR 300 MG CAP PO SCH (07:59)
[2022-01-22] MEDS: ASPIRIN 81 MG ECTAB PO SCH (08:00)
[2022-01-22] MEDS: ADVANCED PROBIOTIC 1250 MG CAPSULE PO SCH (08:00)
[2022-01-22] MEDS: ATORVASTATIN 40 MG TAB PO SCH (08:00)
[2022-01-22] MEDS: CHOLECALCIFEROL 1,000 UNITS 25 MCG TAB PO SCH (08:00)
[2022-01-22] MEDS: MULTIVITAMIN TAB PO SCH (08:00)
[2022-01-22] MEDS: HEPARIN SOD 5,000 UNIT/0.5 ML VIAL SQ SCH (08:01)
[2022-01-22] MEDS: INSULIN ASPART PER UNIT SC SCH ×2 (08:18→12:54)
[2022-01-22] MEDS: LANTUS PER UNIT CHARGE SQ SCH (08:18)
[2022-01-22] MEDS ORDERED: FLUCONAZOLE 50 MG TAB PO ONE (10:17)
--- NOTE | 2022-01-22 11:17 | Pharmacy Report ---
Pharmacy Glycemic Short Note 2 - Date of Service January 22, 2022 - Glycemic Short BSG Results (Last 24 hours): 01/21/22 01/21/22 01/21/22 11:21 16:08 20:06 POC Glucose 189 H 156 H 326 H* 01/21/22 01/22/22 01/22/22 20:07 01:04 07:43 POC Glucose 331 H* 170 H 141 H OUTPATIENT ANTIDIABETIC REGIMEN: * insulin pump - basal 6.25 units/day, TDD of 22 units/day, "guesstimates boluses/manually doses" - follows [place] [facility] (pulled settings from prior note) ASSESSMENT: 01/22: * Patient's BSG continues to be labile. However, fasting BSG acceptable today. Will continue with current Lantus dose * Post prandial BSGs acceptable with the exception of HS last evening. However per nursing note, patient ate 2.5 basked potatoes and this did not appear to be covered by novolog. 01/19: * Patient hypoglycemic this AM, will reduce basal ~20% this AM * Tightened breakfast carb ratio as lunch BSG has been elevated, loosened parameters with lunch and dinner * On home prednisone 2.5 mg daily * Patient is still awaiting placement at [facility] 01/16: * BSGs [id number]/dL the last 24 hours. Fasting this AM within goal range. * Tolerating diet. Dexamethasone modified to 4mg PO daily this AM (changed to home prednisone starting tomorrow AM). * Given continuation of dexamethasone at reduced dose today, will administer 6 units NPH with dex. Continue HS Lantus scale with dinner. Reassess basal in AM. 01/15 * Fasting this AM 101 mg/dL, lantus was held yesterday, will restart with dinner with scale. NPH given this AM with dexamethasone (this was last scheduled dose of dex- will not continue). * BSGs trend up with dinner but do come down, patient refused lunch insulin yesterday, can consider slight tightening of correction/carb ratio if trend continues today 01/12 * 17 units SQ given over last 24 hrs, PO intake was a little better yesterday per carb counts and significantly better with breakfast today * Fasting BSG 71-95 this AM with 12 units basal on board. Will titrate basal down given GLU of 71 on today's chemistry. * Post-prandial BSGs acceptable with current Novolog doses. Will lessing correctional insulin dose at bedtime given AM BSGs less than 100 01/11 * 19 units SQ given over last 24 hrs, PO intake had been poor * Fasting BSG 74-83 this AM with 16 units basal on board, will titrate basal down * Post-prandial BSGs acceptable for the most part yesterday 01/10 * 31 units SQ given over last 24 hrs again while tolerating small meals * Fasting BSG 139 this AM with 14 units basal on board and following receipt of 4 units correctional insulin overnight - will continue to up-titrate AM basal dose slightly while dexamethasone continues. * Post-prandial BSGs elevated yesterday, will escalate breakfast and lunch Novolog doses 01/09 * 18 units SQ insulin given over last 24 hrs while tolerating small meals (10- 20gm CHO per meal) * Fasting BSG elevated with 8 units basal on board (FBS 167-181). Will increase basal insulin dose as dexamethasone IV continues * Post-prandial BSG control reasonable yesterday with current CF/CR. May require a larger prandial dose with breakfast if BSG continues to spike with lunch. PLAN FOR INPATIENT GLYCEMIC CONTROL: * Hold outpatient oral diabetes medications * Basal insulin * Lantus 5 units qam * Bolus insulin * NovoLog per scale ACHS or Q6hrs while NPO * Goal Range: Low 110 mg/dL - High 160 mg/dL * Correction Factor: 20 mg/dL/unit with breakfast; 25 mg/dL/ unit with lunch and dinner; correction factor 50mg/dL/unit at HS * Nutritional / Prandial insulin per carb ratio of 1 unit per 5 grams CHO consumed with breakfast; 9 with lunch/dinner; 25 grams CHO at bedtime
--- NOTE | 2022-01-22 14:21 | Discharge Summary ---
Date of Service January 22, 2022 Admission HPI Per Admitting Provider This is a 71-year-old female with a history of type 1 diabetes, diabetic retinopathy, bilateral BKAs, chronic indwelling Low, CAD s/p RCA stent in 2019 and significant LAD and/or left main disease, RA, dyslipidemia who presented to [facility] for evaluation of dyspnea and weakness. Patient tested positive for COVID-19 8-days [employer]ODING [employer]. Went to [facility] the next day, given Paxlovid. Completed course, but unfortunately had bad diarrhea for several days - which has since improved. However, she became progressively more weak and her son reports significantly decreased PO intake leading up to today. She was confused today and at home, her pulse ox showed 75% - so they decided to bring her to the hospital. She denies SOB. Says she's had a productive cough x several days. No fevers, chills. No nausea or vomiting. Medications reviewed and include abatacept (q4w), acetaminophen, aspirin, atorvastatin, vitamin D3, clopidogrel, insulin, prednisone 2.5 mg daily. Allergies in PSH system: Keflex (GI discomfort), Bactrim (GI discomfort) No use of EtOH. No use of tobacco. At baseline, she is not ambulatory secondary to bilateral BKAs. She has an indwelling Low that is changed q1mo. On arrival, she was found to be tachycardic with heart rate 105, hypoxic with SPO2 86% on room air. Labs demonstrated leukocytosis to 13 with associated left shift. She was profoundly hyponatremic to 108, hypochloremic to 75, potassium 3.6, calcium 7.4. Chest x-ray demonstrated moderate pulmonary edema with small bilateral pleural effusions, and a right perihilar airspace opacity. Blood cultures were taken. ECG demonstrated no acute repolarization abnormalities, rhythm abnormalities, or conduction abnormalities. She was given 1250 cc NSS, started on aztreonam and vancomycin, and given a single dose of dexamethasone IV. Admission Exam Per Admitting Provider General: 71-year old female who is tired and ill appearing, but alert and oriented throughout our discussion. HEENT: NCAT. - Eyes - Sclera are white, anicteric, an d without injection. - Mouth - MMM - Neck - supple, no appreciable JVD Cardiac: Normal rate and regular rhythm; S1 and S2 present with no murmurs, rubs, or gallops. Pulmonary: Good respiratory effort with symmetric expansion of the chest. No use of accessory muscles. Lungs demonstrating bilateral crackles throughout both lungs, most notably at the bases. Abdominal: Normoactive bowel sounds. Abdomen was soft, nondistended, and non- tender to palpation. Extremities: Upper and lower extremities are warm and well perfused. No peripheral edema in the lower extremities bilaterally. Bilateral BKAs noted. Neuro: - Cranial Nerves: CN I, IX, XIII, and X - not assessed. II - PERRL. III/IV/ - EOMs WNL. No nystagmus. V - Facial sensation in tact in all three divisions; jaw opening WNL. VII - Patient is able to smile symmetrically and keep eyes close against resistance. IX - Soft palate raises equally and appropriately while saying "ah." XI - Patient is able to shrug shoulders against resistance. XII - patient is able to stick out tongue and deviate from [id number] appropriately. - Motor: UE - Finger, wrist, elbow, and shoulder strength is 4/5 bilaterally. - Sensation: UE and LE sensation to ligh t touch is grossly intact bilaterally. Principal Diagnosis COVID-19 pneumonia Discharge Exam General: Well-appearing, alert, interactive, and in no acute distress. HEENT: Normocephalic, atraumatic. EOM intact. Good conjugate gaze. Nares patent. Moist mucosal membranes. Neck: Supple. No lymphadenopathy. Normal ROM. CV: Regular rate and rhythm. Normal S1 and S2. No murmurs gallops or rubs. Respiratory: Normal respiratory effort. Bibasilar crackles. No rhonchi or wheezes. Abdomen: Soft, nondistended abdomen. No bruits heard on auscultation. No tenderness to deep palpation. No guarding or rebound. Neuro: Alert and oriented x3. Skin: Clean, dry, and intact. No rashes, bruises, or erythema. Discharge Data Allergies Allergy/AdvReac Type Severity Reaction Status Date / Time cephalexin Allergy Unknown Unknown Verified 12/05/21 15:00 diphenhydramine Allergy Unknown Unknown Verified 12/05/21 15:00 hyoscyamine Allergy Unknown Unknown Verified 12/05/21 15:00 infliximab Allergy Unknown Unknown Verified 12/05/21 15:00 losartan Allergy Unknown Unknown Verified 12/05/21 15:00 phenazocine Allergy Unknown Unknown Verified 12/05/21 15:00 sulfamethoxazole Allergy Unknown Unknown Verified 12/05/21 15:00 lisinopril Allergy Verified 12/05/21 15:00 phenazopyridine Allergy Verified 12/05/21 15:00 [From Pyridium] ramipril AdvReac Unknown Unknown Verified 12/05/21 15:00 beta blockers Allergy Uncoded 12/05/21 15:00 novolin AdvReac Unknown Unknown Uncoded 12/05/21 15:00 Consultations 01/06/22 20:18 ED Decision to Admit Stat Hospital Course (1) Hypoxia: 71-year-old woman with history of type 1 diabetes, diabetic retinopathy, bilateral BKA's, coronary artery disease status post RCA stent in 2019, and significant LAD, and chronic indwelling Low who presented for evaluation of dy spnea weakness and is currently being treated for COVID-19 pneumonia. Currently accepted at SNF ([facility]), on Saturday, pending insurance authorization. Hypoxia/dyspnea/COVID-19 PNA Possibly with superimposed bacterial pneumonia.Already had a course of Paxlovid; no benefit of Remdesivir since past early days of COVID. -CRP improving -continue steroids for 10days/till discharge - start date 01/06/2022. will need her home prednisone for RA resumed once dexamethasone is off -with elevated procalcitonin- continue Unasyn and Doxy for possible superimposed bacterial pneumonia -Received one dose of Lasix on 01/07 for concern of hypervolemia. recheck CXR with improved fluid overload findings -encouraged incentive spirometer. -NC O2 - SaO2 improving -Initially planned to discharge on home oxygen. However, patient saturating in the mid to high 90s on room air x5 days before discharge. Acute Hypovolemic Hyponatremia-Na 108 on admission.sOsm on arrival at [facility] -History most consistent with poor p.o. intakehypovolemic hyponatremia. -Na now stable the mid to high 120s, which is her baseline. Patient remains asymptomatic. Episode of narrow complex tachy - 01/09 (resolved) -h/o intolerance to b rafi past causing severe fatigue -no further episodes T1DM -Pharmacy glycemic consult, continue to follow glucose. Received basal bolus insulin prior to discharge to [facility] Urinary retention - suprapubic cath - Noted. Has b/l BKAs, non-ambulatory. - Monitor and maintain while here - Per son - replaces q1mo CAD - Per [facility] cardiology notes: CAD s/p RCA stent in 2019 in [place], also noted to have significant LAD and/or left main disease on PCI - Continue ASA, clopidogrel, atorvastatin - Trialed BBs in the past, per [facility] Cardiology notes, but unfortunately experienced significant fatigue RA - Stable. On Abatacept q4wk per son. - Hold home prednisone given ongoing dexamethasone therapy (2) COVID-19: (3) Acute hyponatremia: (4) Pneumonia: (5) Rheumatoid arthritis: (6) CAD (coronary atherosclerotic disease): (7) Diabetes type 1, controlled: Total Time Total Time Spent Total Time Spent (In Minutes): 60 Discharge Plan Discharge Items Patient Disposition: Transfer Intermediate Fac Reason For Visit: COVID PNA, HYPONTREMIA Discharge Diagnosis: COVID-19 pneumonia, hyponatremia Activity: Per Instructions section Non-emergency contact: Primary Care Provider Call non-emergency contact if: you have any medication questions, your symptoms worsen and your temperature is above 101 Follow-up/Referrals: Fabian Grant MD [Primary Care Provider] - Diet: Regular Addtl Attending Provider Instructions: Dear Eleni, You are brought to the hospital because of weakness, and difficulty breathing. You were admitted to our hospital because you were found to have COVID-19 pneumonia and hyponatremia, already lower than normal concentration of sodium in your blood. You were given IV antibiotics, and other medicines to treat your symptoms. We also obtained daily lab work that confirmed that you had hyponatremia. You had some pain and some mild difficulty urinating, and we treated you for that as well. We also had you evaluated by our physical and occupational therapists, to determine your level of care after you are medically stable. They recommended a penitentiary facility for further care. Subsequently, your symptoms began to improve, and we now believe that you are well enough to be safely discharged to the penitentiary facility ([facility]). We sent a medication to your penitentiary facility called cefdinir. Please take cefdinir 300 mg twice daily x5 days. Otherwise, continue to take the rest of the medications as prescribed, unless otherwise instructed by your primary physician. After you complete your stay at [facility], you should schedule a follow-up appointment with your primary care physician as soon as you are able. It has been a pleasure taking care of you here at [facility]. If you have any questions or concerns about your stay your care here, please call us at [phone]. 71-year-old woman with history of type 1 diabetes, diabetic retinopathy, bilateral BKA's, coronary artery disease status post RCA stent in 2019, and significant LAD, and chronic indwelling Low who presented for evaluation of dyspnea weakness and is currently being treated for COVID-19 pneumonia. Currently accepted at [facility] ([facility]), on Saturday, pending insurance authorization. Hypoxia/dyspnea/COVID-19 PNA Possibly with superimposed bacterial pneumonia.Already had a course of Paxlovid; no benefit of Remdesivir since past early days of COVID. -CRP improving -continue steroids for 10days/till discharge - start date 01/06/2022. will need her home prednisone for RA resumed once dexamethasone is off -with elevated procalcitonin- continue Unasyn and Doxy for possible superimposed bacterial pneumonia -Received one dose of Lasix on 01/07 for concern of hypervolemia. recheck CXR with improved fluid overload findings -encouraged incentive spirometer. -NC O2 - SaO2 improving -once oxygenation stays stable -plan to discharge on home oxygen (unable to do 2 step due to bilateral BKA) Acute Hypovolemic Hyponatremia-Na 108 on admission.sOsm on arrival at 232 -History most consistent with poor p.o. intakehypovolemic hyponatremia. -Na now stable the mid to high 120s. Episode of narrow complex tachy - 01/09(resolved) -h/o intolerance to b rafi past causing severe fatigue -no further episodes T1DM -Pharmacy glycemic consult, continue to follow glucose Urinary retention - suprapubic cath - Noted. Has b/l BKAs, non-ambulatory. - Monitor and maintain while here - Per son - replaces q1mo CAD - Per [facility] cardiology notes: CAD s/p RCA stent in 2019 in [place], also noted to have significant LAD and/or left main disease on PCI - Continue ASA, clopidogrel, atorvastatin - Trialed BBs in the past, per [facility] Cardiology notes, but unfortunately experienced significant fatigue RA - Stable. On Abatacept q4wk per son. - Hold home prednisone given ongoing dexamethasone therapy Pending Studies at Discharge: No Stand-Alone Forms: My [facility] Skilled Items Patient informed of condition?: Yes DNR: No Discharge Level of Care: Skilled Communicable Disease: No Discharge Prognosis: Stable Lines: None Urinary Catheter: No Medications and DC Order Prescriptions: New cefdinir 300 mg Capsule 300 mg PO BID 5 Days Qty: 10 0RF Continued aspirin 81 mg tablet,delayed release (DR/EC) 81 mg PO DAILY Qty: 30 2RF atorvastatin 80 mg tablet 80 mg PO DAILY Qty: 30 2RF clopidogrel [Plavix] 75 mg tablet 75 mg PO DAILY Qty: 30 2RF Glucagon (HCl) Emergency Kit 1 mg recon soln 1 mg subcut Q20M PRN (Reason: hypoglycemia) Qty: 1 0RF Rx Instructions: until target blood sugar attained multivitamin Tablet 1 tab PO DAILY Qty: 30 0RF prednisone 2.5 mg tablet 2.5 mg PO DAILY Qty: 30 0RF cholecalciferol (vitamin D3) 50 mcg (2,000 unit) capsule 2,000 unit PO DAILY Qty: 30 0RF insulin lispro [Humalog U-100 Insulin] 100 unit/mL solution See Rx Instructions subcut DAILY Rx Instructions: 14-20 units subcut daily; via insulin pump (DME) OneTouch Ultra Test Strip See Rx Instructions .Route Qty: 1 0RF Rx Instructions: As directed Orencia (with maltose) 250 mg recon soln See Rx Instructions IV .COMPLEX Rx Instructions: 500mg IV every 4 weeks; acetaminophen 325 mg capsule 650 mg PO Q4H PRN Probiotic 10 billion cell Capsule 10,000 mmu cells PO DAILY Discharge Orders: Discharge Order (Routine); Ordered 01/22/22 Ordered By: Rosi Boothe/Other Patient Handouts: Understanding Deep Vein Thrombosis, DVT Complications, Preventing Deep Vein Thrombosis, Nutrition and MyPlate Protein Admission Data Admit Date/Time: 01/06/22 21:06 Attending Provider: Tobin Granados Admit Provider: Fernando Santos Primary Care Provider: Fabian Grant Other Providers: Fernando Tinsley ; [facility] ; Stephanie Simon ; Phan Escobedo ; [facility] ; [facility] Other Interventions: Discharge Summary Assessment (RN) Last Done: 01/22/22 13:16 Supervising Physician Co-Signing Physician Notes I personally examined the patient and verified all rudolph points of history and exam, discussed case, and agree with decision making with Dr Berry Patient was accepted to a penitentiary facility and continued improving over the last 24 hours. She was alert and oriented x3 and at this time is now stable for discharge. She was discharged today to the penitentiary facility. Time spent reviewing patient's chart, performing history and physical examination of patient and evaluating patient was greater than 30 minutes. Resident Activity Tracking Resident Involvement: Resident Care Provided Care Provided: Adult Hospital Medicine
--- NOTE | 2022-02-01 07:30 | Coding Query ---
PRESENT ON ADMISSION QUERY To promote full compliance with coding requirements relating to pateint care, physician participation is requested in all cases of pre coder uncertainty. Please assist us with the question(s) below: Please place an X within the parenthesis (x). The following diagnosis listed in this patient's medical record require physician assistance to determine if they were present on admission (POA) or not. Please advise for each diagnosis whether it was present on admission, not present on admission, or if it was clinically undetermined. 1. UTI - (documented on 01/21 Progress Note) ( ) Present On Admission (x ) Not Present On Admission ( ) Clinically Undetermined ( ) Ruled -Out Thank you Shayla Parham *Definition of the present on admission (POA)-Present on admission is defined as present at the time the order for inpatient admission occurs. Conditions that develop during an outpatient encounter prior to a written order for inpatient admission (including emergency department, observation, or outpatient surgery) are considered present on admission. MTDD
== END 2022-01-22 14:23 | DRG 177 ==
LOC: ED 18:53 → SUATTDRO 21:06 → 2E 01-07 → SUATTDRO 01-07 → 2E 01-07 03:40

== ENCOUNTER 2024-01-01 08:28 | Observation (INO) ==
--- NOTE | 2024-01-01 08:36 | Emergency Department Note ---
Impression & Plan Acute pyelitis, Suprapubic catheter, Diabetes type 1, controlled ED Provider Note NAME: LI ZEPEDA AGE: 73 SEX: F : 1950 ARRIVES VIA: Ambulance INFORMANT: Patient ED PROVIDER(S): Bryan Lechuga MD CHIEF COMPLAINT: Bladder spasm, pain PLAN: Disposition: Admit MEDICAL DECISION MAKING: The patient is a pleasant 73-year-old woman with a past medical history of type 1 diabetes, diabetic retinopathy, bilateral BKAs, neurogenic bladder s/p chronic suprapubic Low, CAD s/p RCA stent in 2019 and significant LAD and/or left main disease, RA, dyslipidemia who presents to the emergency department via EMS for evaluation of ongoing lower abdominal pain/bladder spasms that began last night. She reports her suprapubic catheter has been draining normally. She has since changed every 4 weeks and is due to have it changed on the of this month. She denies any fevers, nausea, vomiting, diarrhea. On evaluation the patient is uncomfortable no distress, afebrile blood pressure 190/90s and heart rate in the 90s in the setting of her discomfort and vital signs otherwise stable. She appears clinically dry. She has mild lower abdominal tenderness without guarding or rebound. There is no distention of the suprapubic region. Suprapubic catheter is draining yellow urine without sediment or turbidity. WBC, H/H and platelets within normal limits. Chemistry without metabolic acidosis. Glucose is 236. LFTs are unremarkable. Lipase normal. UA suspicious for infection with positive nitrites, WBCs and 4+ bacteria. CT of the ab pelvis was performed and demonstrates evidence of left urothelial thickening suggestive of left pyelitis. Likely degenerative changes in the lumbosacral spine given the clinical context. Findings reviewed with the patient she does agree with plan for admission for further management. Blood culture was obtained empiric treatment initiated with IV cefepime given history of Pseudomonas. Case was discussed with Dr. Ariza, [facility] hospitalist, who will evaluate the patient for admission. Further management per admitting team. Triage Nursing notes reviewed and agree them. Prior/external medical records reviewed Vital Signs: reviewed Differential diagnosis: Renal colic, UTI, appendicitis, diverticulitis, mesenteric ischemia, aortic pathology, infections, inflammatory bowel disease, PUD, biliary pathology, as well as other pathologies. ER treatment provided: See below. Diagnostics interpreted by me: Cardiac Monitoring: An order for continuous cardiac monitoring was placed and demonstrated normal sinus rhythm, 94 bpm, no ectopy. Laboratory studies: See below Imaging studies: See below Consultation(s): Case was discussed with Dr. Ariza, [facility] hospitalist, who will evaluate the patient for admission. HPI: The patient is a pleasant 73-year-old woman with a past medical history of type 1 diabetes, diabetic retinopathy, bilateral BKAs, neurogenic bladder s/p chronic suprapubic Low, CAD s/p RCA stent in 2019 and significant LAD and/or left main disease, RA, dyslipidemia who presents to the emergency department via EMS for evaluation of ongoing lower abdominal pain/bladder spasms that began last night. She reports her suprapubic catheter has been draining normally. She has since changed every 4 weeks and is due to have it changed on the of this month. She denies any fevers, nausea, vomiting, diarrhea. ROS: See above HPI for pertinent positives & negatives. A total of 10 systems reviewed and were otherwise negative. VITALS:See Below PHYSICAL EXAMINATION: GENERAL: Awake, alert, in no distress HENT: Normocephalic, atraumatic. Oropharynx with dry mucous membranes and otherwise unremarkable. EYES: Normal conjunctiva. Sclera non-icteric. NECK: Supple. No nuchal rigidity. FROM. No JVD. RESPIRATORY: Clear to auscultation. CARDIAC: Regular rate, normal rhythm. Extremities warm and well perfused. Pulses equal. ABDOMEN: Soft, non-distended. Mild lower abdominal tenderness without guarding or rebound. There is no distention of the suprapubic region. Suprapubic catheter is draining yellow urine without sediment or turbidity. No rebound or guarding. MUSCULOSKELETAL: Chest examination reveals no tenderness. The back is symmetrical on inspection without obvious abnormality. There is no CVA tenderness to palpation. No joint edema. LOWER EXTREMITIES: Bilateral BKAs. NEURO: Normal sensorium. No sensory or motor deficits noted. SKIN: No rash or jaundice noted. Bryan Lechuga MD Past Med/Surg History Problem List (Updated 01/01/24 @ 15:43 by Bryan Lechuga MD) Acute pyelitis (Acute) Lumbar disc disease Pancreatic duct disruption UTI (urinary tract infection) Shoulder pain Encounter for pain management Sacroiliitis Pneumonia (Acute) Acute hyponatremia (Acute) COVID-19 (Acute) Hypoxia (Acute) Acute urinary retention Background diabetic retinopathy associated with type 1 diabetes mellitus CAD (coronary atherosclerotic disease) Below-knee amputation of right lower extremity Below-knee amputation of left lower extremity Dyslipidemia Diabetes type 1, controlled (Acute) Suprapubic catheter (Acute) Medical History Rheumatoid arthritis Surgical History S/P BKA (below knee amputation) Stented coronary artery Family History Father Hypertension Stroke Mother Heart disease Social History Smoking Status: Never smoker Hx Alcohol Use: No Hx Substance Use: No Preferred Language: Albanian Communication Ability: Effective Poolroom/Poolhall Manager Required: No Beliefs That Will Affect Care: None marital status: / Current Living Situation: Family Current Living Situation Comment: son, DIL and 2 grandchildren current occupational status: retired current occupation: Retired RN Feels Safe at Home: Yes Assistive Devices: Glasses, Hearing Aid - Bilateral and Walker Allergies Allergies Allergy/AdvReac Type Severity Reaction Status Date / Time cephalexin Allergy Unknown Unknown Verified 10/23/23 13:22 diphenhydramine Allergy Unknown Unknown Verified 10/23/23 13:22 hyoscyamine Allergy Unknown Unknown Verified 10/23/23 13:22 infliximab Allergy Unknown Unknown Verified 10/23/23 13:22 losartan Allergy Unknown Unknown Verified 10/23/23 13:22 phenazocine Allergy Unknown Unknown Verified 10/23/23 13:22 sulfamethoxazole Allergy Unknown Unknown Verified 10/23/23 13:22 Beta-Blockers Allergy Unknown Verified 01/01/24 13:14 (Beta-Adrenergic Bloc lisinopril Allergy Unknown Verified 01/01/24 13:14 phenazopyridine Allergy Unknown Verified 01/01/24 13:14 [From Pyridium] ramipril AdvReac Unknown Unknown Verified 10/23/23 13:22 Home Meds Home Medications Medication Instructions Recorded Confirmed Lactobacillus acidophilus 10 10,000 mmu cells PO DAILY 07/18/21 01/01/24 billion cell capsule (Probiotic) acetaminophen 325 mg capsule 650 mg PO Q4H PRN Pain 10/13/21 01/01/24 prednisone 2.5 mg tablet 5 mg PO UD 12/18/22 01/01/24 insulin aspart U-100 100 unit/mL 1 sliding scale dose subcut 01/01/24 01/01/24 subcutaneous cartridge (Novolog DIRECTED PenFill U-100 Insulin aspart) Previous Rx's Medication Instructions Recorded aspirin 81 mg tablet,delayed 81 mg PO DAILY #30 tabs 06/02/21 release atorvastatin 80 mg tablet 80 mg PO DAILY #30 tabs 06/02/21 clopidogrel 75 mg tablet (Plavix) 75 mg PO DAILY #30 tabs 06/02/21 glucagon HCl 1 mg solution for 1 mg subcut Q20M PRN hypoglycemia 06/02/21 injection (Glucagon (HCl) #1 ea Emergency Kit) multivitamin 1 tab PO DAILY #30 tabs 06/02/21 blood sugar diagnostic (OneTouch #300 ea 05/29/23 Ultra Test strips) insulin admin supplies (Novopen #1 ea 07/12/23 Echo subcutaneous) pen needle, diabetic 32 gauge x #200 ea 11/04/23 5/32" (BD Ultra-Fine Asha Pen Needle) Lantus Solostar U-100 Insulin 100 12 unit (0.12 mL) subcut DAILY #15 11/18/23 unit/mL (3 mL) subcutaneous pen mL (insulin glargine) Results & Data (ED) Vital Signs Vital Signs - 24 hr 01/01/24 08:36 01/01/24 08:44 01/01/24 09:24 Temperature 36.5 C Temperature Source Oral Pulse Rate 94 H 82 86 Pulse Rate from SpO2 Sensor Respiratory Rate 18 21 Respiratory Effort / Characteristics Non-Labored Spontaneous Respiratory Depth Normal Respiratory Pattern Regular Blood Pressure 190/90 H Blood Pressure Mean 123 Blood Pressure Position Lying Pulse Oximetry 100 99 Oxygen Delivery Method Room Air Room Air Sepsis Recent Fever Within 48 Hours No Sepsis New/Unexplained Change in Mental Status N/A Sepsis Action Taken by Nursing No Action Required 01/01/24 09:33 01/01/24 10:00 01/01/24 10:12 Temperature Temperature Source Pulse Rate 82 87 87 Pulse Rate from SpO2 Sensor 82 Respiratory Rate 18 14 18 Respiratory Effort / Characteristics Respiratory Depth Respiratory Pattern Blood Pressure Blood Pressure Mean Blood Pressure Position Pulse Oximetry 98 Oxygen Delivery Method Sepsis Recent Fever Within 48 Hours Sepsis New/Unexplained Change in Mental Status Sepsis Action Taken by Nursing 01/01/24 10:15 01/01/24 10:24 01/01/24 10:30 Temperature Temperature Source Pulse Rate 85 87 Pulse Rate from SpO2 Sensor 85 87 Respiratory Rate 14 17 Respiratory Effort / Characteristics Respiratory Depth Respiratory Pattern Blood Pressure 156/69 H Blood Pressure Mean 105 Blood Pressure Position Pulse Oximetry 98 97 Oxygen Delivery Method Sepsis Recent Fever Within 48 Hours Sepsis New/Unexplained Change in Mental Status Sepsis Action Taken by Nursing 01/01/24 10:31 01/01/24 10:57 01/01/24 11:00 Temperature Temperature Source Pulse Rate 83 Pulse Rate from SpO2 Sensor Respiratory Rate 14 Respiratory Effort / Characteristics Respiratory Depth Respiratory Pattern Blood Pressure 153/85 H 134/76 Blood Pressure Mean 103 102 Blood Pressure Position Pulse Oximetry Oxygen Delivery Method Sepsis Recent Fever Within 48 Hours Sepsis New/Unexplained Change in Mental Status Sepsis Action Taken by Nursing 01/01/24 11:03 01/01/24 11:30 01/01/24 12:00 Temperature Temperature Source Pulse Rate 82 86 87 Pulse Rate from SpO2 Sensor Respiratory Rate 14 18 19 Respiratory Effort / Characteristics Respiratory Depth Respiratory Pattern Blood Pressure Blood Pressure Mean Blood Pressure Position Pulse Oximetry Oxygen Delivery Method Sepsis Recent Fever Within 48 Hours Sepsis New/Unexplained Change in Mental Status Sepsis Action Taken by Nursing 01/01/24 12:00 01/01/24 12:27 01/01/24 13:00 Temperature Temperature Source Pulse Rate 83 Pulse Rate from SpO2 Sensor Respiratory Rate 14 Respiratory Effort / Characteristics Respiratory Depth Respiratory Pattern Blood Pressure 140/82 142/80 H Blood Pressure Mean 110 99 Blood Pressure Position Pulse Oximetry Oxygen Delivery Method Sepsis Recent Fever Within 48 Hours Sepsis New/Unexplained Change in Mental Status Sepsis Action Taken by Nursing 01/01/24 13:06 Temperature Temperature Source Pulse Rate 83 Pulse Rate from SpO2 Sensor Respiratory Rate 19 Respiratory Effort / Characteristics Respiratory Depth Respiratory Pattern Blood Pressure Blood Pressure Mean Blood Pressure Position Pulse Oximetry Oxygen Delivery Method Sepsis Recent Fever Within 48 Hours Sepsis New/Unexplained Change in Mental Status Sepsis Action Taken by Nursing Laboratory Data Attestation: I reviewed the patient's lab results. 01/01/24 09:04 01/01/24 09:04 Lab Results 01/01/24 01/01/24 01/01/24 Range/Units 09:04 09:18 12:43 WBC 7.99 (4.8-10.8) K/ul RBC 4.63 (4.20-5.40) M/uL Hgb 13.0 (12.0-16.0) g/dl Hct 39.4 (37.0-47.0) % MCV 85.1 (80.0-100.0) fL MCH 28.1 (25.0-34.0) pg MCHC 33.0 (32.0-36.0) g/dL RDW Std Deviation 44.1 (36.4-46.3) fL RDW Coeff of Donovan 14.4 (11.5-14.5) % Plt Count 294 (130-400) K/uL MPV 9.4 (9.4-12.4) fL Immature Gran % (Auto) 0.1 % Neut % (Auto) 61.0 % Lymph % (Auto) 25.8 % Early % (Auto) 8.6 % Eos % (Auto) 3.4 % Baso % (Auto) 1.1 % Neut # (Auto) 4.87 (1.40-6.50) K/uL Lymph # (Auto) 2.06 (1.20-3.40) K/uL Early # (Auto) 0.69 H (0.11-0.59) K/uL Eos # (Auto) 0.27 (0.00-0.50) K/uL Baso # (Auto) 0.09 (0.00-0.20) K/uL Immature Gran # (Auto) 0.01 (0.01-0.20) K/uL Sodium 133 L (136-145) mmol/L Potassium 3.9 (3.5-5.1) mmol/L Chloride 98 (98-107) mmol/L Carbon Dioxide 24 (21-32) mmol/L Anion Gap 11 (3-11) BUN 23 (6-23) mg/dl Creatinine 0.59 L (0.6-1.2) mg/dl Est Cr Clr Drug Dosing 65.4 ml/min Est GFR ( Amer) 103.9 ml/min Est GFR (Non-Af Amer) 89.7 ml/min BUN/Creatinine Ratio 39.0 H (10-20) Glucose 236 H (70-99(Fasting)) mg/dl POC Glucose 198 H (70-99) mg/dl Calcium 8.9 (8.6-10.3) mg/dl Total Bilirubin 0.5 (0.2-1.0) mg/dl AST 36 (13-39) U/L ALT 28 (7-52) U/L Alkaline Phosphatase 129 H (34-104) U/L Total Protein 6.7 (6.0-8.3) gm/dl Albumin 4.1 (3.4-5.0) gm/dl Globulin 2.6 (2.5-4.0) gm/dl Albumin/Globulin Ratio 1.6 (0.9-2) Lipase 17 (11-82) U/L Urine Color Yellow Urine Appearance Turbid A (Clear) Urine pH >= 9.0 H (4.5-7.5) Ur Specific [place] 1.020 (1.000-1.030) Urine Protein 1+ H (Negative) Urine Glucose (UA) Negative (Negative) Urine Ketones Negative (Negative) Urine Blood Negative (Negative) Urine Nitrite Positive A (Negative) Urine Bilirubin Negative (Negative) Urine Urobilinogen Negative (Negative) Ur Leukocyte Esterase 3+ H (Negative) Urine WBC (Auto) 11-20 H (0-5) /hpf Urine RBC (Auto) 6-10 H (0-2) /hpf U Hyaline Cast (Auto) >20 H (0-2) /lpf U Epithel Cells (Auto) 6-10 H (0-2) /hpf Urine Bacteria (Auto) 4+ H (None Seen) Triple Phos Crystals Present A (None Prsent) Hyaline Casts Present A (None Presnt) /lpf Granular Casts Present A (None Prsent) /lpf Administered Medications Enoxaparin Sodium (Enoxaparin Inj 40 Mg/0.4 Ml Syr) 40 mg SQ Q24H ESME Stop: 01/31/24 16:21 Last Admin: 01/01/24 17:37 Dose: Not Given Documented By: GWENDOLYN Cefepime HCl 2,000 mg/ Syringe 20 mls @ 5 mls/min IV Q8H ESME; Protocol Stop: 01/11/24 20:59 Last Admin: 01/01/24 20:46 Dose: 5 mls/min Documented By: ANTHONY Insulin Aspart (Insulin Aspart Per Unit Charge) 0 units SC ACHS ESME Stop: 01/31/24 16:29 Last Admin: 01/01/24 20:45 Dose: 3 units Documented By: ANTHONY Co-signed By: BIJAL Admin: 01/01/24 17:38 Dose: Not Given Documented By: KD Discontinued Medications Aspirin (Aspirin 81 Mg Ectab) 81 mg PO NOW STA Stop: 01/01/24 13:11 Last Admin: 01/01/24 13:48 Dose: 81 mg Documented By: TNK Clopidogrel Bisulfate (Clopidogrel Bisulfate 75 Mg Tab) 75 mg PO NOW STA Stop: 01/01/24 13:24 Last Admin: 01/01/24 13:48 Dose: 75 mg Documented By: YUKOK Dicyclomine HCl (Dicyclomine Hcl 10 Mg/Ml 2 Ml Amp/Vial) 20 mg IM NOW ONE Stop: 01/01/24 08:45 Last Admin: 01/01/24 09:05 Dose: 20 mg Documented By: BEVERLEY Sodium Chloride (Nss) 1,000 mls @ 999 mls/hr IV .Q1H1M ONE Stop: 01/01/24 09:44 Last Infusion: 01/01/24 11:25 Dose: Infused Documented By: Admin: 01/01/24 09:07 Dose: 999 mls/hr Documented By: BEVERLEY Acetaminophen (Ofirmev) 1,000 mg in 100 mls @ 400 mls/hr IV NOW STA Stop: 01/01/24 08:58 Last Infusion: 01/01/24 09:44 Dose: Infused Documented By: Admin: 01/01/24 09:05 Dose: 400 mls/hr Documented By: BEVERLEY Cefepime HCl (Maxipime) 2,000 mg in 20 mls @ 5 mls/min IV NOW STA; Protocol Stop: 01/01/24 12:08 Last Admin: 01/01/24 13:35 Dose: 5 mls/min Documented By: MUKUL Insulin Glargine (Lantus Per Unit Charge) 12 units SQ NOW STA Stop: 01/01/24 12:17 Last Admin: 01/01/24 12:53 Dose: 12 units Documented By: YUKOK Co-signed By: SOM Ioversol (Optiray 320 100ml) 94 ml IV ONCE ONE Stop: 01/01/24 09:50 Last Admin: 01/01/24 09:49 Dose: 94 ml Documented By: MARIANNA Ketorolac Tromethamine (Ketorolac Tromethamine 15 Mg/Ml Vial) 15 mg IV NOW STA Stop: 01/01/24 08:48 Last Admin: 01/01/24 09:06 Dose: 15 mg Documented By: BEVERLEY Prednisone (Prednisone 5 Mg Tab) 2.5 mg PO ONE STA Stop: 01/01/24 13:25 Last Admin: 01/01/24 13:48 Dose: 2.5 mg Documented By: BEVERLEY Imaging Data Radiologist's Impression: Abdomen/Pelvis CT 01/01/24 08:[address] WITH IV CONTRAST CT DOSE: 572.78 mGy.cm HISTORY: lower abd pain, suprapubic catheter TECHNIQUE: Multiaxial CT images of the abdomen and pelvis were performed following the use of intravenous contrast. A dose lowering technique was utilized adhering to the principles of ALARA. COMPARISON STUDY: None. FINDINGS: Bibasilar linear densities consistent with subsegmental atelectasis. There are punctate calcified granuloma seen within the lung bases. No pneumoperitoneum. No pneumatosis. Sclerotic foci of the L2 and L5 vertebral bodies are indeterminate but may represent bone island. Dominant sclerotic focus at L2 measures 2.7 cm. Endplate irregularity with subchondral sclerosis and moderate disc space narrowing at L5-S1 level. There is gas noted within the disc space. Therefore, this favors chronic degenerative change. A chronic discitis/osteomyelitis is considered less likely but not entirely excluded given the endplate erosive changes. Hepatic steatosis. The gallbladder, spleen, adrenal glands, left kidney are unremarkable. Focal cortical scarring within the right kidney. No hydronephrosis. Moderate to severe calcified plaque within the normal caliber abdominal aorta and iliac arteries. Mild urothelial thickening within the left ureter. This suggests a mild pyelitis. The main portal vein is patent. No retroperitoneal or pelvic lymphadenopathy. No pelvic free fluid. The uterus and bilateral adnexa are unremarkable. The bladder is mildly distended. The bladder wall thickening. A suprapubic catheter appears in good position. There are few bladder calculi identified. Moderate fecal retention. No bowel wall thickening or obstruction. Normal appendix. The pancreas enhances normally. There is mild irregularity the main pancreatic duct with distal dilatation of the 5 mm. IMPRESSION: 1. The bladder is mildly distended and demonstrates mild bladder wall thickening. This may represent a cystitis. 2. A suprapubic catheter appears in good position. 3. Multiple bladder calculi. 4. Mild urothelial thickening within the left ureter. This suggests a mild pyelitis. 5. Mild irregularity and mild dilatation within the main pancreatic duct. However, no pancreatic masses identified. Follow-up GI consultation recommended for further evaluation. 6. Moderate fecal retention. 7. No definite bowel wall thickening or obstruction. 8. Endplate irregularity/erosive change at L5-S1. This favors chronic degenerative change. A chronic discitis/osteomyelitis is considered less likely but not entirely excluded. 9. Sclerotic foci at the L2 and L5 vertebral bodies are indeterminate but favor bone islands. 10. Additional findings as described above. ACT 112: Positive. There are findings on this exam that require communication between the performing entity and the patient following Patient Test Result Information Act ([place] Act 112) guidelines. Electronically signed by: Franki Egan M.D. 01/01/2024 11:45 AM Discharge Plan Visit Data Chief Complaint: Urinary Symptoms ED Provider: Bryan Lechuga Discharge Problem: Acute pyelitis, Suprapubic catheter, Diabetes type 1, controlled Patient Disposition: Admitted As Inpatient Discharge Instructions Interventions: ED Discharge Assessment Last Done: 01/01/24 16:01 Discharge Problem: Diabetes type 1, controlled Qualifiers: Diabetes mellitus complication status: with other specified complication Q ualified Code(s): E10.69 - Type 1 diabetes mellitus with other specified complication
[2024-01-01] MEDS: ACETAMINOPHEN 1,000 MG/100 ML VIAL IV STA (09:05)
[2024-01-01] MEDS: DICYCLOMINE HCL 10 MG/ML 2 ML AMP/VIAL IM ONE (09:05)
[2024-01-01] MEDS: KETOROLAC TROMETHAMINE 15 MG/ML VIAL IV STA (09:06)
[2024-01-01] MEDS: SODIUM CHLORIDE 0.9% 1,000 ML IV ONE (09:07)
[2024-01-01 09:34] LABS: Basophils # (auto) 0.09 K/uL (0.00-0.20); Basophils % (auto) 1.1 %; Eosinophils # (auto) 0.27 K/uL (0.00-0.50); Eosinophils % (auto) 3.4 %; Hematocrit (blood only) 39.4 % (37.0-47.0); Immature Granulocytes # (auto) 0.01 K/uL (0.01-0.20); Immature Granulocytes % (auto) 0.1 %; Lymphocytes # (auto) 2.06 K/uL (1.20-3.40); Lymphocytes % (auto) 25.8 %; Mean Corpuscular Hemoglobin 28.1 pg (25.0-34.0); Mean Corpuscular Volume 85.1 fL (80.0-100.0); Mean Platelet Volume 9.4 fL (9.4-12.4); Monocytes # (auto) 0.69 K/uL (0.11-0.59); Monocytes % (auto) 8.6 %; Neutrophils # (auto) 4.87 K/uL (1.40-6.50); Platelet Count 294 K/uL (130-400); RDW Coefficient of Variation 14.4 % (11.5-14.5); RDW Standard Deviation 44.1 fL (36.4-46.3); Red Blood Count 4.63 M/uL (4.20-5.40); White Blood Count 7.99 K/ul (4.8-10.8)
[2024-01-01 09:45] LABS: Albumin Globulin Ratio 1.6 (0.9-2); Albumin Level 4.1 gm/dl (3.4-5.0); Bilirubin,Total 0.5 mg/dl (0.2-1.0); Calcium 8.9 mg/dl (8.6-10.3); Creatinine Clr Calc Pharmacy 65.4 ml/min; Est GFR (African American) 103.9 ml/min; Est GFR (Non-African American) 89.7 ml/min; Globulin 2.6 gm/dl (2.5-4.0); Potassium 3.9 mmol/L (3.5-5.1); Total Protein 6.7 gm/dl (6.0-8.3)
[2024-01-01] MEDS: OPTIRAY 320 100ml IV ONE (09:49)
[2024-01-01 10:13] LABS: Appearance Urine Turbid (Clear); Bacteria Urine Automated 4+ (None Seen); Bilirubin Urine Negative (Negative); Blood Urine Negative (Negative); Cast Urine Automated >20 /lpf (0-2); Color Urine Yellow; Glucose Urine UA Negative (Negative); Granular Casts Urine Present /lpf (None Prsent); Hyaline Casts Urine Present /lpf (None Presnt); Ketones Urine Negative (Negative); Leukocyte Esterase Urine 3+ (Negative); Nitrite Urine Positive (Negative); Protein Urine 1+ (Negative); Triple Phosphate Crystal Urine Present (None Prsent); Urobilinogen Urine Negative (Negative); pH Urine >= 9.0 (4.5-7.5)
--- NOTE | 2024-01-01 11:46 | CT Scan Report ---
ABDOMEN AND PELVIS CT WITH IV CONTRAST CT DOSE: 572.78 mGy.cm HISTORY: lower abd pain, suprapubic catheter TECHNIQUE: Multiaxial CT images of the abdomen and pelvis were performed following the use of intrave nous contrast. A dose lowering technique was utilized adhering to the principles of ALARA. COMPARISON STUDY: None. FINDINGS: Bibasilar linear densities consistent with subsegmental atelectasis. There are punctate susie cified granuloma seen within the lung bases. No pneumoperitoneum. No pneumatosis. Sclerotic foci of t he L2 and L5 vertebral bodies are indeterminate but may represent bone island. Dominant sclerotic foc us at L2 measures 2.7 cm. Endplate irregularity with subchondral sclerosis and moderate disc space na rrowing at L5-S1 level. There is gas noted within the disc space. Therefore, this favors chronic dege nerative change. A chronic discitis/osteomyelitis is considered less likely but not entirely excluded given the endplate erosive changes. Hepatic steatosis. The gallbladder, spleen, adrenal glands, left kidney are unremarkable. Focal cortical scarring within the right kidney. No hydronephrosis. Moderat e to severe calcified plaque within the normal caliber abdominal aorta and iliac arteries. Mild uroth elial thickening within the left ureter. This suggests a mild pyelitis. The main portal vein is paten t. No retroperitoneal or pelvic lymphadenopathy. No pelvic free fluid. The uterus and bilateral adnex a are unremarkable. The bladder is mildly distended. The bladder wall thickening. A suprapubic cathet er appears in good position. There are few bladder calculi identified. Moderate fecal retention. No b owel wall thickening or obstruction. Normal appendix. The pancreas enhances normally. There is mild i rregularity the main pancreatic duct with distal dilatation of the 5 mm. IMPRESSION: 1. The bladder is mildly distended and demonstrates mild bladder wall thickening. This may represent a cystitis. 2. A suprapubic catheter appears in good position. 3. Multiple bladder calculi. 4. Mild urothelial thickening within the left ureter. This suggests a mild pyelitis. 5. Mild irregularity and mild dilatation within the main pancreatic duct. However, no pancreatic mass es identified. Follow-up GI consultation recommended for further evaluation. 6. Moderate fecal retention. 7. No definite bowel wall thickening or obstruction. 8. Endplate irregularity/erosive change at L5-S1. This favors chronic degenerative change. A chronic discitis/osteomyelitis is considered less likely but not entirely excluded. 9. Sclerotic foci at the L2 and L5 vertebral bodies are indeterminate but favor bone islands. 10. Additional findings as described above. ACT 112: Positive. There are findings on this exam that require communication between the performing entity and the patient following Patient Test Result Information Act ([place] Act 112) guidelines. Electronically signed by: Franki Egan M.D. 01/01/2024 11:45 AM
[2024-01-01] MEDS: LANTUS PER UNIT CHARGE SQ STA (12:53)
--- NOTE | 2024-01-01 12:56 | History & Physical Report ---
Date of Service January 01, 2024 Assessment & Plan (1) UTI (urinary tract infection): Plan: Complicated UTI, left pyelitis No leukocytosis, no PHILIP on admission UA is infected appearing, patient with chronic indwelling Low CTA/P: Evidence of cystitis and mild pyelitis Past history of fluoroquinolone resistance and pseudomonal infections. Will admit for pyelitis pending culture results for sensitivities She is not septic on admission (2) CAD (coronary atherosclerotic disease): Plan: CAD, history of PCI Continue DAPT, statin Patient intolerant of beta-blockers in the past Denies chest pain, chest pressure recently or at time of admission (3) Rheumatoid arthritis: Plan: RA On abatacept every 4 weeks On home prednisone continue (4) Diabetes type 1, controlled: Plan: Type I DM Pharmacy glycemic consult Basal bolus insulin continued. Basal 12 units given in ER, SSI based on total basal requirements 25/10 ordered Type I DM diet (5) Pancreatic duct disruption: Plan: Pancreatic duct irregularity No pancreatic masses identified on CT GI consulted for follow-up No evidence of obstruction, no transaminitis on admission (6) Lumbar disc disease: Plan: L5-S1 abnormality No tenderness to palpation. No leukocytosis. Likely chronic change, discitis/osteo is not completely excluded. Patient reports that she has had chronic lumbar degenerative changes which are known to her in the past. Denies any recent pain and has not had fever/chills Blood cultures pending. If gram-positive cultures present or patient clinically worsens, can follow-up with MRI (7) Suprapubic catheter: Plan DVT prophylaxis: Lovenox Disposition: Medical surgical CODE STATUS: Full code History of Present Illness Primary Care Provider: Fabian Grant MD Eleni is a 73-year-old female with a past medical history of type I DM, diabetic retinopathy, bilateral BKA, CAD with history of PCI/RCA stent 2019, hyperlipidemia, chronic catheterization with indwelling Low and history of pseudomonal infection who presents with weakness and abdominal pain and is found to have suspected pyelonephritis with a history of pseudomonal UTIs in the past. 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 Did not take this today Insulin regimen for T1DM: - Was previously on the pump. ddnt work well for her now on basal bolus - Lantus 12u daily, aspart with meals Medical History: Reviewed Medications: Reviewed Surgical History: Reviewed Family history: Reviewed Allergies: Reviewed Social History: REviewed Code Status: Full Code Allergies Allergy/AdvReac Type Severity Reaction Status Date / Time cephalexin Allergy Unknown Unknown Verified 10/23/23 13:22 diphenhydramine Allergy Unknown Unknown Verified 10/23/23 13:22 hyoscyamine Allergy Unknown Unknown Verified 10/23/23 13:22 infliximab Allergy Unknown Unknown Verified 10/23/23 13:22 losartan Allergy Unknown Unknown Verified 10/23/23 13:22 phenazocine Allergy Unknown Unknown Verified 10/23/23 13:22 sulfamethoxazole Allergy Unknown Unknown Verified 10/23/23 13:22 Beta-Blockers Allergy Unknown Verified 01/01/24 13:14 (Beta-Adrenergic Bloc lisinopril Allergy Unknown Verified 01/01/24 13:14 phenazopyridine Allergy Unknown Verified 01/01/24 13:14 [From Pyridium] ramipril AdvReac Unknown Unknown Verified 10/23/23 13:22 Home Medications Medication Instructions Recorded Confirmed Type aspirin 81 mg tablet,delayed 81 mg PO DAILY #30 tabs 06/02/21 01/01/24 Rx release atorvastatin 80 mg tablet 80 mg PO DAILY #30 tabs 06/02/21 01/01/24 Rx clopidogrel 75 mg tablet (Plavix) 75 mg PO DAILY #30 tabs 06/02/21 01/01/24 Rx glucagon HCl 1 mg solution for 1 mg subcut Q20M PRN hypoglycemia 06/02/21 01/01/24 Rx injection (Glucagon (HCl) #1 ea Emergency Kit) multivitamin 1 tab PO DAILY #30 tabs 06/02/21 01/01/24 Rx Lactobacillus acidophilus 10 10,000 mmu cells PO DAILY 07/18/21 01/01/24 History billion cell capsule (Probiotic) acetaminophen 325 mg capsule 650 mg PO Q4H PRN Pain 10/13/21 01/01/24 History prednisone 2.5 mg tablet 5 mg PO UD 12/18/22 01/01/24 History blood sugar diagnostic (OneTouch #300 ea 05/29/23 08/21/23 Rx Ultra Test strips) insulin admin supplies (Novopen #1 ea 07/12/23 08/21/23 Rx Echo subcutaneous) pen needle, diabetic 32 gauge x #200 ea 11/04/23 Rx 5/32" (BD Ultra-Fine Asha Pen Needle) Lantus Solostar U-100 Insulin 100 12 unit (0.12 mL) subcut DAILY #15 11/18/23 01/01/24 Rx unit/mL (3 mL) subcutaneous pen mL (insulin glargine) insulin aspart U-100 100 unit/mL 1 sliding scale dose subcut 01/01/24 01/01/24 History subcutaneous cartridge (Novolog DIRECTED PenFill U-100 Insulin aspart) Past Med/Surg History Problem List (Updated 01/01/24 @ 13:13 by Alton Ariza MD) Lumbar disc disease Pancreatic duct disruption UTI (urinary tract infection) Shoulder pain Encounter for pain management Sacroiliitis Pneumonia (Acute) Acute hyponatremia (Acute) COVID-19 (Acute) Hypoxia (Acute) Acute urinary retention Background diabetic retinopathy associated with type 1 diabetes mellitus CAD (coronary atherosclerotic disease) Below-knee amputation of right lower extremity Below-knee amputation of left lower extremity Dyslipidemia Diabetes type 1, controlled Suprapubic catheter Medical History Rheumatoid arthritis Surgical History S/P BKA (below knee amputation) Stented coronary artery Family History Father Hypertension Stroke Mother Heart disease Social History Smoking Status: Never smoker Hx Alcohol Use: No Hx Substance Use: No Preferred Language: Macanese Communication Ability: Unable Beliefs That Will Affect Care: None marital status: / Current Living Situation: Family Current Living Situation Comment: son, dil, grandkids current occupational status: retired current occupation: Retired RN Feels Safe at Home: Yes Assistive Devices: Walker Physical Exam Physical Exam: General: A&Ox3. NAD. Cooperative. HEENT: Atraumatic, normocephalic. Pulm: CTAB A&P. -wheezes, -rales, -rhonchi. Symmetrical chest rise. No increased work of breathing. No respiratory distress. Cardiac: RRR, -mrg. Radial pulses intact and symmetrical. Abdominal: +suprapubic catheter with no surround erythema/discharge. +suprapubic TTP. OTherwise nontender, nondistended, soft. No rebound Back NT to midline spinal palpation Extremities: Bilateral BKA intact, no acute changes to operative sites Results & Data Results & Data Vital Signs (Past 12 Hours) Vital Signs Temp Pulse Resp BP Pulse Ox O2 Del Method 01/01/24 12:00 140/82 01/01/24 12:00 87 19 01/01/24 11:30 86 18 01/01/24 11:03 82 14 01/01/24 11:00 134/76 01/01/24 10:57 83 14 01/01/24 10:31 153/85 H 01/01/24 10:30 87 17 97 01/01/24 10:24 85 14 98 01/01/24 10:15 156/69 H 01/01/24 10:12 87 18 01/01/24 10:00 87 14 01/01/24 09:33 82 18 98 01/01/24 09:24 86 21 01/01/24 08:44 82 99 Room Air 01/01/24 08:36 36.5 C 94 H 18 190/90 H 100 Room Air PG Care Time/CCT Total # of Minutes Spent Total Time Spent with Patient: Total time spent is greater than 50% in coordination of care (as documented) at patient's floor/unit and/or counseling patient: Coding Level of Care Code 04635 INT INP/OBS CARE MIN Diagnoses UTI (urinary tract infection) N39.0 CAD (coronary atherosclerotic disease) I25.10 Rheumatoid arthritis M06.9 Diabetes type 1, controlled E10.9 Pancreatic duct disruption K86.89 Lumbar disc disease M51.9 Suprapubic catheter Z93.59
[2024-01-01] MEDS ORDERED: PHARMACY GLYCEMIC MGMT CONSULT PRN (13:10)
[2024-01-01] MEDS ORDERED: GLUCOSE 40% GEL 15 GM TUBE PO PRN (13:10)
[2024-01-01] MEDS ORDERED: GLUCAGON FOR INJ 1 MG VIAL SQ PRN (13:10)
[2024-01-01] MEDS ORDERED: DEXTROSE 50% 50 ML SYRINGE IV PRN (13:10)
[2024-01-01] MEDS ORDERED: GLUCOSE 10 TAB/TUBE PO PRN (13:10)
[2024-01-01] MEDS: CEFEPIME 2,000 MG/20 ML VIAL IV STA (13:35)
[2024-01-01] MEDS: predniSONE 5 MG TAB PO STA (13:48)
[2024-01-01] MEDS: CLOPIDOGREL BISULFATE 75 MG TAB PO STA (13:48)
[2024-01-01] MEDS: ASPIRIN 81 MG ECTAB PO STA (13:48)
--- NOTE | 2024-01-01 14:16 | Gastrointestinal Consultation ---
Date of Consultation January 01, 2024 Assessment & Plan (1) Pancreatic duct disruption: 73 year old female with history of T1DM, diabetic retinopathy, bilateral BKA, CAD with history of PCI/RCA stent 2019, hyperlipidemia, chronic catheterization with indwelling Low and history of pseudomonal infection admitted w/ pyelonephritis and UTI, CT imaging showing irregularity and mild dilatation within the main pancreatic duct at 5mm without apparent pancreatic masses. We discussed additional evaluation to include EGD/EUS and the potential need for follow up studies. She notes she would consider having this testing arranged after she recovers from her present infection. Please arrange a referral for an OP EUS with [facility] No GI contraindication to diet Recall GI as needed. Thank you for allowing us to participate in the care of this patient. Please call with any acute changes, questions or concerns. Please see addendum below with additional recommendation from my supervising physician. I spent a total of 55 minutes on the date of service in review of patient's record, and previously obtained information in person and appropriate medical visit, discussion and education of plan, with patient and/or caregiver, placing orders for tests/referral/procedures as medically necessary and documentation of pertinent clinical information in patient's medical records for their visit today. Supervising Physician Co-Signing Physician Notes Patient seen and examined. Case discussed with Gisella BOJORQUEZ. Incidental finding of slightly dilated pancreatic duct without any obvious mass or stone. Patient is asymptomatic from pancreas standpoint and lipase normal. Rec: Treat acute UTI May consider OP EUS and if needed ERCP. I do not perform these procedures but she can be referred to advanced endoscopist as OP. IP GI service will sign off. History of Present Illness Reason for Consultation: pancreas duct abnormality Requesting Physician: To Attending Physician: To History of Present Illness 73 year old female with history of T1DM, diabetic retinopathy, bilateral BKA, CAD with history of PCI/RCA stent 2019, hyperlipidemia, chronic catheterization with indwelling Low and history of pseudomonal infection who presents with weakness and abdominal pain and is found to have suspected pyelonephritis with a history of pseudomonal UTI - GI was asked to evaluate for pancreas duct abnormality. She notes she is in her typical state of health from a GI standpoint. Denies abd pain, nausea/vomiting. No appetite changes. Denies weight loss. Reports chronic constipation. Denies black or bloody stools. No ETOH. No tobacco. CTAP 2023: The pancreas enhances normally. There is mild irregularity the main pancreatic duct with distal dilatation of the 5 mm. EGD: none Colonoscopy: about 20 years ago in [place], history of polyps No family history of GI malignancies. She does note that her recently passed from pancreatic CA Allergies Allergy/AdvReac Type Severity Reaction Status Date / Time cephalexin Allergy Unknown Unknown Verified 10/23/23 13:22 diphenhydramine Allergy Unknown Unknown Verified 10/23/23 13:22 hyoscyamine Allergy Unknown Unknown Verified 10/23/23 13:22 infliximab Allergy Unknown Unknown Verified 10/23/23 13:22 losartan Allergy Unknown Unknown Verified 10/23/23 13:22 phenazocine Allergy Unknown Unknown Verified 10/23/23 13:22 sulfamethoxazole Allergy Unknown Unknown Verified 10/23/23 13:22 Beta-Blockers Allergy Unknown Verified 01/01/24 13:14 (Beta-Adrenergic Bloc lisinopril Allergy Unknown Verified 01/01/24 13:14 phenazopyridine Allergy Unknown Verified 01/01/24 13:14 [From Pyridium] ramipril AdvReac Unknown Unknown Verified 10/23/23 13:22 Home Medications Medication Instructions Recorded Confirmed Type aspirin 81 mg tablet,delayed 81 mg PO DAILY #30 tabs 06/02/21 01/01/24 Rx release atorvastatin 80 mg tablet 80 mg PO DAILY #30 tabs 06/02/21 01/01/24 Rx clopidogrel 75 mg tablet (Plavix) 75 mg PO DAILY #30 tabs 06/02/21 01/01/24 Rx glucagon HCl 1 mg solution for 1 mg subcut Q20M PRN hypoglycemia 06/02/21 01/01/24 Rx injection (Glucagon (HCl) #1 ea Emergency Kit) multivitamin 1 tab PO DAILY #30 tabs 06/02/21 01/01/24 Rx Lactobacillus acidophilus 10 10,000 mmu cells PO DAILY 07/18/21 01/01/24 History billion cell capsule (Probiotic) acetaminophen 325 mg capsule 650 mg PO Q4H PRN Pain 10/13/21 01/01/24 History prednisone 2.5 mg tablet 5 mg PO UD 12/18/22 01/01/24 History blood sugar diagnostic (OneTouch #300 ea 05/29/23 08/21/23 Rx Ultra Test strips) insulin admin supplies (Novopen #1 ea 07/12/23 08/21/23 Rx Echo subcutaneous) pen needle, diabetic 32 gauge x #200 ea 11/04/23 Rx 5/32" (BD Ultra-Fine Asha Pen Needle) Lantus Solostar U-100 Insulin 100 12 unit (0.12 mL) subcut DAILY #15 11/18/23 01/01/24 Rx unit/mL (3 mL) subcutaneous pen mL (insulin glargine) insulin aspart U-100 100 unit/mL 1 sliding scale dose subcut 01/01/24 01/01/24 History subcutaneous cartridge (Novolog DIRECTED PenFill U-100 Insulin aspart) Patient History Medical History Rheumatoid arthritis Surgical History S/P BKA (below knee amputation) Stented coronary artery Family History Father Hypertension Stroke Mother Heart disease Social History Smoking Status: Never smoker Hx Alcohol Use: No Hx Substance Use: No Preferred Language: Tajik Communication Ability: Unable Beliefs That Will Affect Care: None marital status: / Current Living Situation: Family Current Living Situation Comment: son, dil, grandkids current occupational status: retired current occupation: Retired RN Feels Safe at Home: Yes Assistive Devices: Walker Review of Systems Review of Systems: All other findings negative except as noted in HPI. Physical Exam Constitutional: WD/WN, vitals as above Respiratory: normal respiratory effort, lungs clear to auscultation Cardiovascular: RRR, no murmur, no edema Gastrointestinal (Abdomen): Percussion/Palpation: abdomen soft; abdomen nont chhaya, no guarding, abdomen not rigid and no abdominal mass present but hypoactive bowel sounds Skin: no rashes, warm and dry Results & Data Vital Signs (Past 12 Hours) Vital Signs Temp Pulse Resp BP Pulse Ox O2 Del Method 01/01/24 12:00 140/82 01/01/24 12:00 87 19 01/01/24 11:30 86 18 01/01/24 11:03 82 14 01/01/24 11:00 134/76 01/01/24 10:57 83 14 01/01/24 10:31 153/85 H 01/01/24 10:30 87 17 97 01/01/24 10:24 85 14 98 01/01/24 10:15 156/69 H 01/01/24 10:12 87 18 01/01/24 10:00 87 14 01/01/24 09:33 82 18 98 01/01/24 09:24 86 21 01/01/24 08:44 82 99 Room Air 01/01/24 08:36 36.5 C 94 H 18 190/90 H 100 Room Air Laboratory Results 01/01/24 01/01/24 01/01/24 Range/Units 12:43 09:18 09:04 WBC 7.99 (4.8-10.8) K/ul RBC 4.63 (4.20-5.40) M/uL Hgb 13.0 (12.0-16.0) g/dl Hct 39.4 (37.0-47.0) % MCV 85.1 (80.0-100.0) fL MCH 28.1 (25.0-34.0) pg MCHC 33.0 (32.0-36.0) g/dL RDW Std Deviation 44.1 (36.4-46.3) fL RDW Coeff of Donovan 14.4 (11.5-14.5) % Plt Count 294 (130-400) K/uL MPV 9.4 (9.4-12.4) fL Immature Gran % (Auto) 0.1 % Neut % (Auto) 61.0 % Lymph % (Auto) 25.8 % Monroe % (Auto) 8.6 % Eos % (Auto) 3.4 % Baso % (Auto) 1.1 % Neut # (Auto) 4.87 (1.40-6.50) K/uL Lymph # (Auto) 2.06 (1.20-3.40) K/uL Monroe # (Auto) 0.69 H (0.11-0.59) K/uL Eos # (Auto) 0.27 (0.00-0.50) K/uL Baso # (Auto) 0.09 (0.00-0.20) K/uL Immature Gran # (Auto) 0.01 (0.01-0.20) K/uL Sodium 133 L (136-145) mmol/L Potassium 3.9 (3.5-5.1) mmol/L Chloride 98 (98-107) mmol/L Carbon Dioxide 24 (21-32) mmol/L Anion Gap 11 (3-11) BUN 23 (6-23) mg/dl Creatinine 0.59 L (0.6-1.2) mg/dl Est Cr Clr Drug Dosing 65.4 ml/min Est GFR ( Amer) 103.9 ml/min Est GFR (Non-Af Amer) 89.7 ml/min BUN/Creatinine Ratio 39.0 H (10-20) Glucose 236 H (70-99(Fasting)) mg/dl POC Glucose 198 H (70-99) mg/dl Calcium 8.9 (8.6-10.3) mg/dl Total Bilirubin 0.5 (0.2-1.0) mg/dl AST 36 (13-39) U/L ALT 28 (7-52) U/L Alkaline Phosphatase 129 H (34-104) U/L Total Protein 6.7 (6.0-8.3) gm/dl Albumin 4.1 (3.4-5.0) gm/dl Globulin 2.6 (2.5-4.0) gm/dl Albumin/Globulin Ratio 1.6 (0.9-2) Lipase 17 (11-82) U/L Urine Color Yellow Urine Appearance Turbid A (Clear) Urine pH >= 9.0 H (4.5-7.5) Ur Specific Dexter 1.020 (1.000-1.030) Urine Protein 1+ H (Negative) Urine Glucose (UA) Negative (Negative) Urine Ketones Negative (Negative) Urine Blood Negative (Negative) Urine Nitrite Positive A (Negative) Urine Bilirubin Negative (Negative) Urine Urobilinogen Negative (Negative) Ur Leukocyte Esterase 3+ H (Negative) Urine WBC (Auto) 11-20 H (0-5) /hpf Urine RBC (Auto) 6-10 H (0-2) /hpf U Hyaline Cast (Auto) >20 H (0-2) /lpf U Epithel Cells (Auto) 6-10 H (0-2) /hpf Urine Bacteria (Auto) 4+ H (None Seen) Triple Phos Crystals Present A (None Prsent) Hyaline Casts Present A (None Presnt) /lpf Granular Casts Present A (None Prsent) /lpf PG Care Time/CCT Total # of Minutes Spent Total Time Spent with Patient: Total time spent is greater than 50% in coordination of care (as documented) at patient's floor/unit and/or counseling patient: Coding Level of Care Code 08844 INT INP/OBS CARE 255MIN Diagnoses Pancreatic duct disruption K86.89
--- NOTE | 2024-01-01 14:22 | Pharmacy Report ---
Pharmacy Glycemic Short Note 2 - Date of Service January 01, 2024 - Glycemic Short BSG Results (Last 24 hours): 01/01/24 01/01/24 09:04 12:43 Glucose 236 H POC Glucose 198 H OUTPATIENT ANTIDIABETIC REGIMEN: * Lantus 12 units daily, Novolog SSI ASSESSMENT: * 73 year old female admitted with concerns for UTI. PMHx significant for DM1, bilateral BKA, CAD, indwelling Low, RA. Pharmacy consulted for glycemic management. Recent notes suggests follows with [facility] for DM management. Typically on prednisone at home for RA, continued on admission. * Provider ordered home dose of Lantus 12 units x1 today, will start novolog based upon home parameters. PLAN FOR INPATIENT GLYCEMIC CONTROL: * Hold outpatient oral diabetes medications * Basal insulin * Lantus 12 units x 1 * Bolus insulin * NovoLog per scale ACHS or Q6hrs while NPO * Goal Range: Low 110 mg/dL - High 150 mg/dL * Correction Factor: 50 mg/dL/unit * Nutritional / Prandial insulin per carb ratio of 1 unit per 20 grams CHO consumed
[2024-01-01] MEDS ORDERED: POLYETHYLENE (MIRALAX) 17 GM PACK PO PRN (16:22)
[2024-01-01] MEDS ORDERED: ACETAMINOPHEN 325 MG TAB PO PRN (16:28)
[2024-01-01] MEDS: ENOXAPARIN INJ 40 MG/0.4 ML SYR SQ SCH (17:37)
[2024-01-01] MEDS: INSULIN ASPART PER UNIT CHARGE SC SCH (17:38)
[2024-01-01] MEDS ORDERED: Nursing to Pharmacy Communication SCH (18:30)
[2024-01-01] MEDS: CEFEPIME 2,000 MG in SYRINGE 0 ML IV SCH (20:46)
[2024-01-02] MEDS: CARBOHYDRATES FOR HYPOGLYCEMIA PO PRN (03:40)
[2024-01-02 06:47] LABS: Basophils # (auto) 0.11 K/uL (0.00-0.20); Basophils % (auto) 1.1 %; Eosinophils # (auto) 0.25 K/uL (0.00-0.50); Eosinophils % (auto) 2.4 %; Hematocrit (blood only) 34.4 % (37.0-47.0); Hemoglobin 11.4 g/dl (12.0-16.0); Immature Granulocytes # (auto) 0.04 K/uL (0.01-0.20); Immature Granulocytes % (auto) 0.4 %; Lymphocytes # (auto) 1.77 K/uL (1.20-3.40); Lymphocytes % (auto) 17.2 %; Mean Corpuscular Hemoglobin 28.2 pg (25.0-34.0); Mean Corpuscular Hgb Conc 33.1 g/dL (32.0-36.0); Mean Corpuscular Volume 85.1 fL (80.0-100.0); Mean Platelet Volume 9.9 fL (9.4-12.4); Monocytes # (auto) 0.82 K/uL (0.11-0.59); Neutrophils # (auto) 7.29 K/uL (1.40-6.50); Neutrophils % (auto) 70.9 %; Platelet Count 280 K/uL (130-400); RDW Coefficient of Variation 14.5 % (11.5-14.5); RDW Standard Deviation 44.9 fL (36.4-46.3); Red Blood Count 4.04 M/uL (4.20-5.40); White Blood Count 10.28 K/ul (4.8-10.8)
[2024-01-02] MEDS: MULTIVITAMIN TAB PO SCH (07:25)
[2024-01-02] MEDS: predniSONE 5 MG TAB PO SCH (07:26)
[2024-01-02] MEDS: ASPIRIN 81 MG ECTAB PO SCH (07:26)
[2024-01-02] MEDS: ADVANCED PROBIOTIC 625 MG CAPSULE PO SCH (07:26)
[2024-01-02] MEDS: CLOPIDOGREL BISULFATE 75 MG TAB PO SCH (07:26)
[2024-01-02 07:56] LABS: BUN Creatinine Ratio 43.1 (10-20); Calcium 8.2 mg/dl (8.6-10.3); Creatinine Clr Calc Pharmacy 53.6 ml/min; Est GFR (African American) 94.9 ml/min; Est GFR (Non-African American) 81.9 ml/min; Potassium 3.8 mmol/L (3.5-5.1)
[2024-01-02] MEDS: LANTUS PER UNIT CHARGE SQ SCH (08:10)
[2024-01-02] MEDS ORDERED: ATORVASTATIN 40 MG TAB PO SCH (09:00)
--- NOTE | 2024-01-02 10:04 | Pharmacy Report ---
Pharmacy Glycemic Short Note 2 - Date of Service January 02, 2024 - Glycemic Short BSG Results (Last 24 hours): 01/01/24 01/01/24 01/01/24 12:43 16:50 20:41 Glucose POC Glucose 198 H 105 H 288 H 01/02/24 01/02/24 01/02/24 03:39 03:56 06:08 Glucose 312 H* POC Glucose 57 L* 92 01/02/24 07:20 Glucose POC Glucose 293 H OUTPATIENT ANTIDIABETIC REGIMEN: * Lantus 12 units daily, Novolog SSI ASSESSMENT: 01/01 * Patient received total of 15 units of insulin yesterday, of which 12 units were basal insulin * BSGs trending down overnight ~50s, treated with 15 gm CHO per notes. Unable to verify if any additional snacks given. BSGs trending upward 293 mg/dL this AM - will decrease basal insulin due to overnight hypoglycemia. Unclear if overnight low was due to basal or correctional insulin given at HS, will loosen CF slightly this AM as well. Outpatient regimen seems more heavily weight with basal, will aim for more of 50-50 split with Lantus/novolog 12/31 * 73 year old female admitted with concerns for UTI. PMHx significant for DM1, bilateral BKA, CAD, indwelling Low, RA. Pharmacy consulted for glycemic management. Recent notes suggests follows with [facility] for DM management. Typically on prednisone at home for RA, continued on admission. * Provider ordered home dose of Lantus 12 units x1 today, will start novolog based upon home parameters. PLAN FOR INPATIENT GLYCEMIC CONTROL: * Hold outpatient oral diabetes medications * Basal insulin * Lantus 9 units daily * Bolus insulin * NovoLog per scale ACHS or Q6hrs while NPO * Goal Range: Low 110 mg/dL - High 150 mg/dL * Correction Factor: 65 mg/dL/unit * Nutritional / Prandial insulin per carb ratio of 1 unit per 20 grams CHO consumed
[2024-01-02 10:20] LABS: iSTAT Creatinine 0.6 mg/dl (0.6-1.3); iSTAT Hemoglobin 14.3 g/dl (12.0-16.0); iSTAT Ionized Calcium 1.1 mmol/l (1.12-1.32); iSTAT Potassium 3.7 mmol/L (3.3-5.0)
--- NOTE | 2024-01-02 16:39 | Hospitalist Progress Note ---
Date of Service January 02, 2024 Assessment & Plan (1) UTI (urinary tract infection): Plan: Presented after 2 days of urinary urgency and spasms. Acute complicated UTI, left pyelitis - No leukocytosis, no PHILIP, not septic on admission - History of fluoroquinolone resistance and pseudomonal infections - CT A/P reveals evidence of cystitis and mild pyelitis - Chronic suprapubic catheter x 18 years secondary to neurogenic bladder from T1DM - Urology consulted for new suprapubic catheter. Suprapubic catheter replaced 01/02/2024 - Urine culture preliminarily showing gram-negative bacilli. Continue to monitor - Blood cultures preliminarily negative - Continue cefepime, last day of antibiotics 01/10 (2) CAD (coronary atherosclerotic disease): Plan: CAD, history of PCI Continue DAPT, statin Patient intolerant of beta-blockers in the past Denies chest pain, chest pressure recently or at time of admission (3) Rheumatoid arthritis: Plan: RA On abatacept every 4 weeks On home prednisone continue (4) Diabetes type 1, controlled: Plan: Type I DM Pharmacy glycemic consult Basal bolus insulin continued. Basal 12 units given in ER, SSI based on total basal requirements 25/10 ordered Type I DM diet (5) Pancreatic duct disruption: Plan: Pancreatic duct irregularity No pancreatic masses identified on CT No evidence of obstruction, no transaminitis, lipase normal on admission Patient is asymptomatic from pancreas standpoint GI consulted for follow-up > Recommend referral for outpatient EUS and if needed ERCP with Flexiro[facility] (6) Lumbar disc disease: Plan: L5-S1 abnormality No tenderness to palpation. No leukocytosis. Likely chronic change, discitis/osteo is not completely excluded. Patient reports that she has had chronic lumbar degenerative changes which are known to her in the past. Denies any recent pain and has not had fever/chills Blood cultures preliminarily negative. If gram-positive cultures present or patient clinically worsens, can follow-up with MRI (7) Suprapubic catheter: Plan Consulted urology DVT prophylaxis: Lovenox CODE STATUS: Full code Admission and Anticipated Discharge Date Admission Date: January 01, 2024 Supervising Physician Co-Signing Physician Notes PAUL Supervision Note: I did not personally see or examine the patient today, but I verified all rudolph points of PAUL Najera' assessment and plan with the following exceptions/additions: None Subjective Patient seen and evaluated at bedside. She reports feeling significantly better today, especially since her suprapubic catheter was changed by urology. She notes that she had some discomfort with this suprapubic catheter ever since was inserted a month ago, though she never contacted her healthcare providers about this. She notes that she has had catheters x 18 years secondary to neurogenic bladder from type 1 diabetes. She denies any fever, chills, abdominal pain, suprapubic pain/tenderness at this time. We discussed her treatment plan, she is hopeful for discharge tomorrow. No additional complaints or concerns at this time. Physical Exam Physical Exam: General: No acute distress, nondiaphoretic, well-developed, well-nourished. Skin: The skin was without rashes, erythema, edema, or bruising. Cardiac: Regular rate and rhythm without murmurs gallops or rubs. Pulm: Clear to auscultation bilaterally without wheezes, rales or rhonchi. No respiratory distress. 97% on room air. Abdominal: Soft, nontender, nondistended. Suprapubic catheter in place with no surrounding erythema/discharge. No suprapubic tenderness. Neuro: A&O x3. No focal neurological deficits. Extremities: Bilateral BKA intact, no acute changes to operative sites. Results & Data Results & Data Vital Signs (Past 12 Hours) Vital Signs Temp Pulse Resp BP Pulse Ox O2 Del Method 01/02/24 15:23 37.2 C 81 16 118/67 97 Room Air 01/02/24 07:35 Room Air 01/02/24 07:13 36.5 C 87 16 141/72 H 97 Room Air Laboratory Results Reviewed CBC Reviewed BMP Reviewed urine culture Reviewed blood culture PG Care Time/CCT Total # of Minutes Spent Total Time Spent with Patient: Total time spent is greater than 50% in coordination of care (as documented) at patient's floor/unit and/or counseling patient: Coding Level of Care Code 95015 SUB INP/OBS CARE 2/35MIN Diagnoses UTI (urinary tract infection) N39.0 CAD (coronary atherosclerotic disease) I25.10 Rheumatoid arthritis M06.9 Diabetes type 1, controlled E10.69 Diabetes mellitus complication status: with other specified complication Pancreatic duct disruption K86.89 Lumbar disc disease M51.9 Suprapubic catheter Z93.59 (4) Diabetes type 1, controlled Diabetes mellitus complication status: with other specified complication Qualified Code(s): E10.69 - Type 1 diabetes mellitus with other specified complication
[2024-01-02] MEDS: ATORVASTATIN 40 MG TAB PO SCH (16:49)
--- NOTE | 2024-01-02 17:46 | Urology Consultation ---
<Statement entered by Jason Marie MD - 01/02/24 18:09> I have discussed Ms. Amaro's case with MARYELLEN Dover and agree with the above documentation. Suprapubic catheter was exchanged successfully. Would agree with antibiotics, narrowing coverage as culture data becomes available. -Jason Marie MD. Date of Consultation January 02, 2024 Assessment & Plan (1) UTI (urinary tract infection): (2) Acute pyelitis: (3) Suprapubic catheter: Plan 73-year-old female in which urology was consulted for an SP tube change. Patient's SP catheter was changed at bedside using sterile technique and patient handled procedure well. Labs reviewed which include elevated glucose with patient's known history of diabetes type 1, kidney function within normal limits Continue antibiotics and trend antibiotics per cultures Other medical management and comfort care per primary team We will arrange future SP catheter changes at our office and cancel her appointment that was scheduled for next week due to change today We will also arrange urology outpatient follow-up Urology will sign off at this time Case reviewed with Dr. Marie Please contact our service if you have any further questions or concerns. History of Present Illness Attending Physician: Sol Goins MD History of Present Illness 73-year-old female with history of diabetes (insulin pump in place, history of bilateral BKA from DM). She has a chronic subpubic catheter for neurogenic bladder. She reported to the ER on 01/02/2024 for bladder spasms that had been occurring for 2 days. In the ER she was found to have a UTI and urology was consulted for suprapubic catheter change. Labs reviewed 01/02/2024 Creatinine 0.72 Glucose 312 WBCs 10.8 Hemoglobin 11.4 Urine and blood cultures are still pending final results. CT of the abdominal pelvis on 01/01/2024 IMPRESSION: 1. The bladder is mildly distended and demonstrates mild bladder wall thickening. This may represent a cystitis. 2. A suprapubic catheter appears in good position. 3. Multiple bladder calculi. 4. Mild urothelial thickening within the left ureter. This suggests a mild py elitis. 5. Mild irregularity and mild dilatation within the main pancreatic duct. However, no pancreatic masses identified. Follow-up GI consultation recommended for further evaluation. 6. Moderate fecal retention. 7. No definite bowel wall thickening or obstruction. 8. Endplate irregularity/erosive change at L5-S1. This favors chronic degenerative change. A chronic discitis/osteomyelitis is considered less likely but not entirely excluded. 9. Sclerotic foci at the L2 and L5 vertebral bodies are indeterminate but favor bone islands. 10. Additional findings as described above. Patient was resting comfortably at the side of the bed having lunch denying fevers, chills, nausea, vomiting, denying any bladder spasms or pain after she began antibiotics yesterday. Long history of a suprapubic catheter that she gets changed monthly at her office. Denying any other acute urological concerns at this time. SP tube procedure: Balloon was deflated with 10 cc, 22 Wallisian old SP catheter was removed with some slight discomfort New 22 Wallisian SP tube inserted without difficulty using sterile technique, balloon was inflated with 10 cc Patient tolerated procedure well with minimal discomfort Allergies Allergy/AdvReac Type Severity Reaction Status Date / Time cephalexin Allergy Unknown Unknown Verified 10/23/23 13:22 diphenhydramine Allergy Unknown Unknown Verified 10/23/23 13:22 hyoscyamine Allergy Unknown Unknown Verified 10/23/23 13:22 infliximab Allergy Unknown Unknown Verified 10/23/23 13:22 losartan Allergy Unknown Unknown Verified 10/23/23 13:22 phenazocine Allergy Unknown Unknown Verified 10/23/23 13:22 sulfamethoxazole Allergy Unknown Unknown Verified 10/23/23 13:22 Beta-Blockers Allergy Unknown Verified 01/01/24 13:14 (Beta-Adrenergic Bloc lisinopril Allergy Unknown Verified 01/01/24 13:14 phenazopyridine Allergy Unknown Verified 01/01/24 13:14 [From Pyridium] ramipril AdvReac Unknown Unknown Verified 10/23/23 13:22 Home Medications Medication Instructions Recorded Confirmed Type aspirin 81 mg tablet,delayed 81 mg PO DAILY #30 tabs 06/02/21 01/01/24 Rx release atorvastatin 80 mg tablet 80 mg PO DAILY #30 tabs 06/02/21 01/01/24 Rx clopidogrel 75 mg tablet (Plavix) 75 mg PO DAILY #30 tabs 06/02/21 01/01/24 Rx glucagon HCl 1 mg solution for 1 mg subcut Q20M PRN hypoglycemia 06/02/21 01/01/24 Rx injection (Glucagon (HCl) #1 ea Emergency Kit) multivitamin 1 tab PO DAILY #30 tabs 06/02/21 01/01/24 Rx Lactobacillus acidophilus 10 10,000 mmu cells PO DAILY 07/18/21 01/01/24 History billion cell capsule (Probiotic) acetaminophen 325 mg capsule 650 mg PO Q4H PRN Pain 10/13/21 01/01/24 History prednisone 2.5 mg tablet 5 mg PO UD 12/18/22 01/01/24 History blood sugar diagnostic (OneTouch #300 ea 05/29/23 08/21/23 Rx Ultra Test strips) insulin admin supplies (Novopen #1 ea 07/12/23 08/21/23 Rx Echo subcutaneous) pen needle, diabetic 32 gauge x #200 ea 11/04/23 Rx 5/32" (BD Ultra-Fine Asha Pen Needle) Lantus Solostar U-100 Insulin 100 12 unit (0.12 mL) subcut DAILY #15 11/18/23 01/01/24 Rx unit/mL (3 mL) subcutaneous pen mL (insulin glargine) insulin aspart U-100 100 unit/mL 1 sliding scale dose subcut 01/01/24 01/01/24 History subcutaneous cartridge (Novolog DIRECTED PenFill U-100 Insulin aspart) Patient History Medical History Rheumatoid arthritis Surgical History S/P BKA (below knee amputation) Stented coronary artery Family History Father Hypertension Stroke Mother Heart disease Social History Smoking Status: Never smoker Hx Alcohol Use: No Hx Substance Use: No Preferred Language: Nigerien Communication Ability: Effective Water Restoration Technician Required: No Beliefs That Will Affect Care: None marital status: / Current Living Situation: Family Current Living Situation Comment: son, DIL and 2 grandchildren current occupational status: retired current occupation: Retired RN Feels Safe at Home: Yes Assistive Devices: Cane, Walker and Wheelchair Review of Systems Constitutional: as per Subjective / HPI Genitourinary: as per Subjective / HPI Physical Exam Constitutional: well developed and well nourished; no acute distress Respiratory: normal respiratory effort and able to speak in complete sentences Musculoskeletal: Extremities: extremities normal to inspection Psychiatric: Orientation: alert and oriented x 3 Results & Data Vital Signs (Past 12 Hours) Vital Signs Temp Pulse Resp BP Pulse Ox O2 Del Method 01/02/24 15:23 37.2 C 81 16 118/67 97 Room Air 01/02/24 07:35 Room Air 01/02/24 07:13 36.5 C 87 16 141/72 H 97 Room Air PG Care Time/CCT Total # of Minutes Spent Total Time Spent with Patient: Total time spent is greater than 50% in coordination of care (as documented) at patient's floor/unit and/or counseling patient: Coding Level of Care Code 28017 INT INP/OBS CARE 2/55MIN Diagnoses UTI (urinary tract infection) N39.0 Acute pyelitis N10 Suprapubic catheter Z93.59 Comment Would also code with 97818 for suprapubic catheter exchange
[2024-01-03 08:10] VITALS: BP 125/74; PULSE 79; RESP 17; TEMP 98.8; O2SAT 96
[2024-01-03 08:32] LABS: Basophils % (auto) 1.4 %; Eosinophils % (auto) 4.1 %; Hematocrit (blood only) 33.4 % (37.0-47.0); Hemoglobin 11.5 g/dl (12.0-16.0); Immature Granulocytes # (auto) 0.03 K/uL (0.01-0.20); Immature Granulocytes % (auto) 0.4 %; Lymphocytes # (auto) 1.79 K/uL (1.20-3.40); Lymphocytes % (auto) 24.4 %; Mean Corpuscular Hemoglobin 28.6 pg (25.0-34.0); Mean Corpuscular Hgb Conc 34.4 g/dL (32.0-36.0); Mean Corpuscular Volume 83.1 fL (80.0-100.0); Mean Platelet Volume 9.9 fL (9.4-12.4); Monocytes % (auto) 9.5 %; Neutrophils # (auto) 4.41 K/uL (1.40-6.50); Neutrophils % (auto) 60.2 %; Platelet Count 281 K/uL (130-400); RDW Coefficient of Variation 14.6 % (11.5-14.5); Red Blood Count 4.02 M/uL (4.20-5.40); White Blood Count 7.33 K/ul (4.8-10.8)
[2024-01-03 08:41] LABS: BUN Creatinine Ratio 34.8 (10-20); Calcium 8.4 mg/dl (8.6-10.3); Creatinine Clr Calc Pharmacy 55.9 ml/min; Est GFR (African American) 98.7 ml/min; Est GFR (Non-African American) 85.2 ml/min; Potassium 3.8 mmol/L (3.5-5.1)
[2024-01-03] MEDS ORDERED: LANTUS PER UNIT CHARGE SQ SCH (09:00)
--- NOTE | 2024-01-03 14:30 | Pharmacy Report ---
Pharmacy Glycemic Short Note 2 - Date of Service January 03, 2024 - Glycemic Short BSG Results (Last 24 hours): 01/02/24 01/02/24 01/03/24 16:36 20:23 07:16 Glucose 221 H POC Glucose 92 162 H 01/03/24 01/03/24 01/03/24 08:08 11:37 11:39 Glucose POC Glucose 227 H 313 H* 307 H* OUTPATIENT ANTIDIABETIC REGIMEN: * Lantus 12 units SQ daily * Novolog SSI (~0.5-3 units before meals) * HbA1c: 8.6% (07/27/22) ASSESSMENT: 01/02 * Pt received total of 17 units of insulin yesterday (9 units of basal, 8 units of correctional/prandial). * Lantus was dosed conservatively yesterday in light of AM hypoglycemia. BSGs were reasonable throughout the day. * Today, BSGs have been elevated, potentially from an over-reduction in basal insulin? BSGs appear to be somewhat labile in this Type 1 patient. * Will plan to increase Lantus slightly tomorrow and provide additional meal- time coverage with Novolog. * Pharmacy will continue to follow and adjust regimen as indicated. 01/01 * Patient received total of 15 units of insulin yesterday, of which 12 units were basal insulin * BSGs trending down overnight ~50s, treated with 15 gm CHO per notes. Unable to verify if any additional snacks given. BSGs trending upward 293 mg/dL this AM - will decrease basal insulin due to overnight hypoglycemia. Unclear if overnight low was due to basal or correctional insulin given at HS, will loosen CF slightly this AM as well. Outpatient regimen seems more heavily weight with basal, will aim for more of 50-50 split with Lantus/novolog 12/31 * 73 year old female admitted with concerns for UTI. PMHx significant for DM1, bilateral BKA, CAD, indwelling Low, RA. Pharmacy consulted for glycemic management. Recent notes suggests follows with [facility] for DM management. Typically on prednisone at home for RA, continued on admission. * Provider ordered home dose of Lantus 12 units x1 today, will start novolog based upon home parameters. PLAN FOR INPATIENT GLYCEMIC CONTROL: * Hold outpatient oral diabetes medications * Basal insulin * Lantus 9 units daily * Increase to Lantus 10 units daily tomorrow * Bolus insulin * NovoLog per scale ACHS or Q6hrs while NPO * Goal Range: Low 110 mg/dL - High 150 mg/dL * Correction Factor: 65 mg/dL/unit * Nutritional / Prandial insulin per carb ratio of 1 unit per 20 grams CHO consumed
--- NOTE | 2024-01-03 16:48 | Discharge Summary ---
Discharge Summary Date of Service January 03, 2024 Principal Dx & Hospital Course #1 = Principal Diagnosis (1) UTI (urinary tract infection): Presented after 2 days of urinary urgency and spasms. Acute complicated UTI, left pyelitis - No leukocytosis, no PHILIP, not septic on admission - History of fluoroquinolone resistance and pseudomonal infections - CT A/P reveals evidence of cystitis and mild pyelitis - Chronic suprapubic catheter x 18 years secondary to neurogenic bladder from T1DM - Urology consulted for new suprapubic catheter. Suprapubic catheter replaced 01/02/2024 - Blood cultures negative x48 hours. - Urine culture revealed pansensitive Proteus mirabilis. Second organism growing, gram-negative bacilli-microbiology lab ruled out Pseudomonas and Proteus-it could be E. coli similar to previous. Will continue to monitor and adjust outpatient oral antibiotics if indicated. - Treated with cefepime while hospitalized, discharged on Augmentin x 7 days per pharmacy's recommendations. Will follow-up on urine culture after discharge to ensure not a resistant organism for the second bacteria that is yet unidentified (2) CAD (coronary atherosclerotic disease): CAD, history of PCI Continue DAPT, statin Patient intolerant of beta-blockers in the past Denies chest pain, chest pressure recently or at time of admission (3) Rheumatoid arthritis: RA On abatacept every 4 weeks On home prednisone continue (4) Diabetes type 1, controlled: Type I DM Pharmacy glycemic consult Basal bolus insulin continued. Basal 12 units given in ER, SSI based on total basal requirements 25/10 ordered Type I DM diet (5) Pancreatic duct disruption: Pancreatic duct irregularity No pancreatic masses identified on CT No evidence of obstruction, no transaminitis, lipase normal on admission Patient is asymptomatic from pancreas standpoint GI consulted for follow-up > Recommend referral for outpatient EUS and if [facility] (6) Lumbar disc disease: L5-S1 abnormality No tenderness to palpation. No leukocytosis. Likely chronic change, discitis/osteo is not completely excluded. Patient reports that she has had chronic lumbar degenerative changes which are known to her in the past. Denies any recent pain and has not had fever/chills Blood cultures preliminarily negative. If gram-positive cultures present or patient clinically worsens, can follow-up with MRI (7) Suprapubic catheter: Noted Plan CODE STATUS: Full code Notes For Next Care Provider Mrs. mAaro was admitted with acute UTI and left-sided pyelitis. She had her suprapubic catheter replaced by urology while in the hospital. She was treated with cefepime while inpatient, and discharged with Augmentin x 7 days. Follow-up with urology outpatient. Recommend referral for outpatient EUS and if needed ERCP with [facility] for pancreatic duct irregularity noted on CT. She is asymptomatic from pancreas standpoint. Medication Changes From Visit Augmentin x 7 days Admission HPI Per Admitting Provider Eleni is a 73-year-old female with a past medical history of type I DM, diabetic retinopathy, bilateral BKA, CAD with history of PCI/RCA stent 2019, hyperlipidemia, chronic catheterization with indwelling Low and history of pseudomonal infection who presents with weakness and abdominal pain and is found to have suspected pyelonephritis with a history of pseudomonal UTIs in the past. 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 Did not take this today Insulin regimen for T1DM: - Was previously on the pump. ddnt work well for her now on basal bolus - Lantus 12u daily, aspart with meals Medical History: Reviewed Medications: Reviewed Surgical History: Reviewed Family history: Reviewed Allergies: Reviewed Social History: REviewed Code Status: Full Code Admission Exam Per Admitting Provider General: A&Ox3. NAD. Cooperative. HEENT: Atraumatic, normocephalic. Pulm: CTAB A&P. -wheezes, -rales, -rhonchi. Symmetrical chest rise. No increased work of breathing. No respiratory distress. Cardiac: RRR, -mrg. Radial pulses intact and symmetrical. Abdominal: +suprapubic catheter with no surround erythema/discharge. +suprapubic TTP. OTherwise nontender, nondistended, soft. No rebound Back NT to midline spinal palpation Extremities: Bilateral BKA intact, no acute changes to operative sites Discharge Exam General: No acute distress, nondiaphoretic, well-developed, well-nourished. Skin: The skin was without rashes, erythema, edema, or bruising. Cardiac: Regular rate and rhythm without murmurs gallops or rubs. Pulm: Clear to auscultation bilaterally without wheezes, rales or rhonchi. No respiratory distress. 96% on room air. Abdominal: Soft, nontender, nondistended. Suprapubic catheter in place with no surrounding erythema/discharge. No suprapubic tenderness. Neuro: A&O x3. No focal neurological deficits. Extremities: Bilateral BKA intact, no acute changes to operative sites. Discharge Plan Discharge Items Patient Disposition: Home - Self-Care Reason For Visit: PYELITIS Discharge Diagnosis: Acute complicated UTI, left pyelitis Activity: Resume your previous activity Non-emergency contact: Primary Care Provider and Urologist Call non-emergency contact if: you have any medication questions, your symptoms worsen and you have a fever Follow-up/Referrals: Jason Marie MD [Physician] - (Follow-up as scheduled. ) Fabian Grant MD [Primary Care Provider] - (Follow-up in 1-2 weeks) Diet: Carb Count or DM1 Addtl Attending Provider Instructions: Mrs. Amaro, You were admitted to the hospital with an acute urinary tract infection (UTI) and left-sided pyelitis (inflammation of the ureter). You were treated with IV antibiotics while in the hospital, and will be discharged home with oral antibiotics to complete your course. You had your suprapubic catheter replaced this admission. You can follow-up with urology outpatient. Upon discharge from the hospital: * Take Augmentin (oral antibiotic) twice daily x 7 days. This is to treat your UTI and pyelitis. Is important to complete this course of antibiotics even if you begin to feel better. Not completing this course of antibiotics can cause the infection to return and can make future infections harder to treat. * Follow-up with urology outpatient. Their office will call you with your appointment date and time. * Recommend following up with [facility] outpatient for further evaluation of pancreatic duct irregularity noted on CT. * Follow-up with PCP in 1-2 weeks. * Continue your other home medications as prescribed. Please return to the hospital if you experience any of the following: Decreased urine output or trouble urinating, severe pain in the lower back or flank, fever of 100.5 F or higher, shaking chills, persistent vomiting, blood in your urine, dark-colored/foul-smelling urine, confusion, lightheadedness, dizziness, passing out, shortness of breath, or chest pain. It was a pleasure taking care of you while you were in the hospital, Yanet Najera PA-C Pending Studies at Discharge: Yes Studies:: Urine culture Stand-Alone Forms: My [facility] [employer], Smoking Cessation Medications and DC Order Prescriptions: New amoxicillin-pot clavulanate 875-125 mg tablet 1 tab PO BID Qty: 14 0RF Continued aspirin 81 mg tablet,delayed release (DR/EC) 81 mg PO DAILY Qty: 30 2RF atorvastatin 80 mg tablet 80 mg PO DAILY Qty: 30 2RF clopidogrel [Plavix] 75 mg tablet 75 mg PO DAILY Qty: 30 2RF Glucagon (HCl) Emergency Kit 1 mg recon soln 1 mg subcut Q20M PRN (Reason: hypoglycemia) Qty: 1 0RF Rx Instructions: until target blood sugar attained multivitamin Tablet 1 tab PO DAILY Qty: 30 0RF (DME) OneTouch Ultra Test Strip See Rx Instructions .Route Qty: 300 11RF Rx Instructions: Test blood sugars 7 time a day (DME) Novopen Echo Insulin Pen See Rx Instructions .Route Qty: 1 0RF Rx Instructions: As directed to use to inject Novolog with meals (DME) pen needle, diabetic [BD Ultra-Fine Asha Pen Needle] 32 gauge x 5/32" needle See Rx Instructions .Route Qty: 200 11RF Rx Instructions: Use 6 per day insulin glargine [Lantus Solostar U-100 Insulin] 100 unit/mL (3 mL) insulin pen 12 unit subcut DAILY Qty: 15 2RF prednisone 2.5 mg tablet 5 mg PO UD Rx Instructions: per patient, she goes between 2.5 mg and 5 mg. On 12/01/23 the 2.5 mg dose was filled for 30 day supply. acetaminophen 325 mg capsule 650 mg PO Q4H PRN (Reason: Pain) Probiotic 10 billion cell Capsule 10,000 mmu cells PO DAILY insulin aspart U-100 [Novolog PenFill U-100 Insulin] 100 unit/mL cartridge 1 sliding scale dose subcut DIRECTED Rx Instructions: inject according to sliding scale daily with meals; TDD up to 25 units Discharge Orders: Discharge Order (Routine); Ordered 01/03/24 Ordered By: Sol Goins Admission Data Admit Date/Time: 01/01/24 13:10 Attending Provider: Sol Goins Admit Provider: Alton Ariza Primary Care Provider: Fabian Grant Other Providers: Alton Ariza; Olvin Long; Jason Marie Other Interventions: Discharge Summary Assessment (RN) Last Done: 01/03/24 15:11 Hospital Stay Data Consultations 01/01/24 13:02 ED Decision to Admit Stat 01/01/24 13:13 Consult Gastroenterology Routine 01/02/24 09:38 Consult Urology Routine Diagnostic Imagining Performed 01/01/24 08:45 CT abd pelvis IV con only Stat Pending Results Patient Have Any Pending Studies at Discharge: Yes Discharge Instructions Given to Patient (Per Discharging Provider) Mrs. Amaro, Jay were admitted to the hospital with an acute urinary tract infection (UTI) an d left-sided pyelitis (inflammation of the ureter). You were treated with IV antibiotics while in the hospital, and will be discharged home with oral antibiotics to complete your course. You had your suprapubic catheter replaced this admission. You can follow-up with urology outpatient. Upon discharge from the hospital: * Take Augmentin (oral antibiotic) twice daily x 7 days. This is to treat your UTI and pyelitis. Is important to complete this course of antibiotics even if you begin to feel better. Not completing this course of antibiotics can cause the infection to return and can make future infections harder to treat. * Follow-up with urology outpatient. Their office will call you with your appointment date and time. * Recommend following up with [facility] outpatient for further evaluation of pancreatic duct irregularity noted on CT. * Follow-up with PCP in 1-2 weeks. * Continue your other home medications as prescribed. Please return to the hospital if you experience any of the following: Decreased urine output or trouble urinating, severe pain in the lower back or flank, fever of 100.5 F or higher, shaking chills, persistent vomiting, blood in your urine, dark-colored/foul-smelling urine, confusion, lightheadedness, dizziness, passing out, shortness of breath, or chest pain. It was a pleasure taking care of you while you were in the hospital, Yanet Najera PA-C Supervising Physician Co-Signing Physician Notes PA Supervision Note: I personally saw and examined the patient. I verified all rudolph points and agree with PAUL Najera with the following exceptions and/or additions: S-patient feeling very well, no pain or fevers, eating and drinking. O- Vitals reviewed Gen: AAOx3, NAD HEENT: Anicteric sclerae CV: RRR no mgr nl S1S2 Pulm: CTAB no wcr -Low catheter in place draining clear yellow urine Urine culture reviewed A/U-03-duss-old female here with Low catheter associated complicated UTI Much improved, catheter exchanged, home on oral antibiotics Follow-up urine culture after discharge Total Time Total Time Spent Total Time Spent (In Minutes): Greater than 30 minutes spent completing this discharge process including direct patient care, medication reconciliation, documentation, review of labs and images, and coordination of care. Coding Level of Care Code 22274 INP/OBS DISCH >30 MIN Diagnoses UTI (urinary tract infection) N39.0 CAD (coronary atherosclerotic disease) I25.10 Rheumatoid arthritis M06.9 Diabetes type 1, controlled E10.69 Diabetes mellitus complication status: with other specified complication Pancreatic duct disruption K86.89 Lumbar disc disease M51.9 Suprapubic catheter Z93.59
[2024-01-04] MEDS ORDERED: LANTUS PER UNIT CHARGE SQ SCH (09:00)
== END 2024-01-03 15:57 | disposition home or self-care (01) ==
LOC: 3N 08:28 → ED 08:28 → SUATTDRO 13:10 → 3N 16:01
DX: M06.9 Rheumatoid arthritis, unspecified; Z79.02 Long term (current) use of antithrombotics/antiplatelets; I25.10 Atherosclerotic heart disease of native coronary artery without angina pectoris; N10 Acute pyelonephritis; E10.319 Type 1 diabetes mellitus with unspecified diabetic retinopathy without macular edema; Z79.52 Long term (current) use of systemic steroids; B96.4 Proteus (mirabilis) (morganii) as the cause of diseases classified elsewhere; B96.20 Unspecified Escherichia coli [E. coli] as the cause of diseases classified elsewhere; Z88.2 Allergy status to sulfonamides; Z79.82 Long term (current) use of aspirin; Z93.6 Other artificial openings of urinary tract status; K86.89 Other specified diseases of pancreas; Z88.1 Allergy status to other antibiotic agents; Z89.511 Acquired absence of right leg below knee; Z79.4 Long term (current) use of insulin; Z88.8 Allergy status to other drugs, medicaments and biological substances; Z89.512 Acquired absence of left leg below knee; N31.9 Neuromuscular dysfunction of bladder, unspecified; M51.9 Unspecified thoracic, thoracolumbar and lumbosacral intervertebral disc disorder; E10.69 Type 1 diabetes mellitus with other specified complication; E78.5 Hyperlipidemia, unspecified

== ENCOUNTER 2024-01-04 20:24 | Observation (INO) ==
--- NOTE | 2024-01-04 21:44 | Emergency Department Note ---
Impression & Plan Confusion, Hematuria, Acute UTI, Anemia ED Provider Note NAME: LI ZEPEDA AGE: 73 SEX: F : 1950 ARRIVES VIA: Walk-In INFORMANT: [Patient][son] ED PROVIDER(S): [Werner Gomez MD] CHIEF COMPLAINT: Hematuria HISTORY OF PRESENT ILLNESS: The patient is a 73-year-old female who was discharged from our hospital yesterday. She was in for a UTI. She received cefepime during her hospital stay and was discharged on Augmentin. The Augmentin choice was based on her urine culture results. She has taken 1 full day of Augmentin. As per the son, the patient has been confused somewhat since leaving the hospital. No fever, no vomiting. She is eating and drinking well. Tonight, there was some bloody urine noticed in her suprapubic catheter and some blood along the abdomen at the insertion site. The patient felt fullness in her bladder and there was concern that she was retaining urine. She was brought for evaluation. PMHx/PSHx/Social Hx: See Below PHYSICAL EXAM: GENERAL: Patient is in no acute distress. HEENT: No acute trauma, normocephalic atraumatic, mucous membranes moist, no nasal congestion. NECK: No stridor, no adenopathy, no meningismus, trachea is midline. LUNGS: Clear to auscultation bilaterally, no wheeze, no rhonchi, breath sounds equal. HEART: 1/6 systolic murmur, regular rate and rhythm. ABDOMEN: Soft, nontender, no peritonitis. The patient does have a suprapubic Low catheter. There is some dried blood along the skin at the insertion site. EXTREMITIES: No cyanosis. She has bilateral below the knee amputations. NEUROLOGIC: Awake and alert, no acute motor or sensory deficits, no focal weakness. SKIN: No jaundice, no diaphoresis. DIFFERENTIAL DIAGNOSIS: UTI, misplaced Low catheter, electrolyte imbalance, dehydration, among others. EMERGENCY DEPARTMENT PROCEDURES: MEDICAL DECISION MAKING: There is no leukocytosis. A mild anemia was seen. Looking at previous testing, the patient carries a history of anemia. There was a normal platelet count. No renal failure or significant electrolyte abnormality. No concerning liver enzyme elevation. ECG showed a sinus rhythm, no ischemia. Cardiac enzyme testing x 1 was not consistent with acute cardiac injury. TSH was slightly elevated, the T4 was normal. Urinalysis does show findings of infection. Abdominal and pelvis CT does not show any urinary obstruction. She was constipated. Her suprapubic Low catheter was in position. Chest x-ray does not show CHF or pneumonia. On exam, the patient was not febrile or toxic. Patient received IV saline, 500 cc. She was given IV cefepime. The cefepime should cover the urinary infection given her latest urine culture results. The patient has not done well since discharge. She is now having hematuria. She continues with confusion. Her UTI still seems to be active. I did speak with the patient and her son, I did speak with case management, the on-call hospitalist was consulted. Given the circumstances, admission is warranted. Prior/Outside records/notes reviewed: Yesterday's discharge summary note describing her presentation, care and plan at discharge. ECG per my interpretation: Indication was confusion. The ECG shows a normal sinus rhythm with a rate of 81. There is no acute ST ovation, no PVCs. The QTc was 446. Continuous Cardiac Monitoring per my interpretation: An order was placed for continuous cardiac monitoring. The monitor shows a rate of 83 with normal sinus rhythm. Imaging/x-ray results per my interpretation: Chest x-ray shows some chronic change, I see no pneumonia or CHF. Chronic Medical/Social conditions affecting care: Advanced age, recent hospitalization. Care/Management discussed with: Case management, the on-call hospitalist. Level of care consideration(s): After review of the information above and other included data: --I believe the patient requires escalation of care to admission DISPOSITION: Admission Past Med/Surg History Problem List (Updated 01/05/24 @ 00:56 by Werner Gomez MD) Anemia (Acute) Acute UTI (Acute) Hematuria (Acute) Confusion (Acute) Acute pyelitis (Acute) Lumbar disc disease Pancreatic duct disruption UTI (urinary tract infection) Shoulder pain Encounter for pain management Sacroiliitis Pneumonia (Acute) Acute hyponatremia (Acute) COVID-19 (Acute) Hypoxia (Acute) Acute urinary retention Background diabetic retinopathy associated with type 1 diabetes mellitus CAD (coronary atherosclerotic disease) Below-knee amputation of right lower extremity Below-knee amputation of left lower extremity Dyslipidemia Diabetes type 1, controlled (Acute) Suprapubic catheter (Acute) Medical History Rheumatoid arthritis Surgical History S/P BKA (below knee amputation) Stented coronary artery Family History Father Hypertension Stroke Mother Heart disease Social History Smoking Status: Never smoker Hx Alcohol Use: No Hx Substance Use: No Preferred Language: Yemeni Communication Ability: Effective City Detective Required: No Beliefs That Will Affect Care: None marital status: / Current Living Situation: Family Current Living Situation Comment: son, DIL and 2 grandchildren current occupational status: retired current occupation: Retired RN Feels Safe at Home: Yes Assistive Devices: Cane, Walker and Wheelchair Allergies Allergies Allergy/AdvReac Type Severity Reaction Status Date / Time cephalexin Allergy Unknown Unknown Verified 10/23/23 13:22 diphenhydramine Allergy Unknown Unknown Verified 10/23/23 13:22 hyoscyamine Allergy Unknown Unknown Verified 10/23/23 13:22 infliximab Allergy Unknown Unknown Verified 10/23/23 13:22 losartan Allergy Unknown Unknown Verified 10/23/23 13:22 phenazocine Allergy Unknown Unknown Verified 10/23/23 13:22 sulfamethoxazole Allergy Unknown Unknown Verified 10/23/23 13:22 Beta-Blockers Allergy Unknown Verified 01/01/24 13:14 (Beta-Adrenergic Bloc lisinopril Allergy Unknown Verified 01/01/24 13:14 phenazopyridine Allergy Unknown Verified 01/01/24 13:14 [From Pyridium] ramipril AdvReac Unknown Unknown Verified 10/23/23 13:22 Home Meds Home Medications Medication Instructions Recorded Confirmed Lactobacillus acidophilus 10 10,000 mmu cells PO DAILY 07/18/21 01/01/24 billion cell capsule (Probiotic) acetaminophen 325 mg capsule 650 mg PO Q4H PRN Pain 10/13/21 01/01/24 prednisone 2.5 mg tablet 5 mg PO UD 12/18/22 01/01/24 insulin aspart U-100 100 unit/mL 1 sliding scale dose subcut 01/01/24 01/01/24 subcutaneous cartridge (Novolog DIRECTED PenFill U-100 Insulin aspart) Previous Rx's Medication Instructions Recorded aspirin 81 mg tablet,delayed 81 mg PO DAILY #30 tabs 06/02/21 release atorvastatin 80 mg tablet 80 mg PO DAILY #30 tabs 06/02/21 clopidogrel 75 mg tablet (Plavix) 75 mg PO DAILY #30 tabs 06/02/21 glucagon HCl 1 mg solution for 1 mg subcut Q20M PRN hypoglycemia 06/02/21 injection (Glucagon (HCl) #1 ea Emergency Kit) multivitamin 1 tab PO DAILY #30 tabs 06/02/21 blood sugar diagnostic (OneTouch #300 ea 05/29/23 Ultra Test strips) insulin admin supplies (Novopen #1 ea 07/12/23 Echo subcutaneous) pen needle, diabetic 32 gauge x #200 ea 11/04/2332" (BD Ultra-Fine Asha Pen Needle) Lantus Solostar U-100 Insulin 100 12 unit (0.12 mL) subcut DAILY #15 11/18/23 unit/mL (3 mL) subcutaneous pen mL (insulin glargine) amoxicillin 875 mg-potassium 1 tab PO BID #14 tabs 01/03/24 clavulanate 125 mg tablet Results & Data (ED) Vital Signs Vital Signs - 24 hr 01/04/24 20:25 01/04/24 20:35 01/04/24 20:52 Temperature 36.4 C L Temperature Source Temporal Artery Scan Pulse Rate 84 86 Pulse Rate [Left] 85 Pulse Rhythm [Left] Regular Pulse Strength [Left] Normal Respiratory Rate 20 18 Respiratory Effort / Characteristics Non-Labored Spontaneous Non-Labored Respiratory Depth Normal Normal Respiratory Pattern Regular Blood Pressure 123/69 Blood Pressure [Left Arm] 152/83 H Blood Pressure Mean 87 Blood Pressure Mean [Left Arm] 106 Blood Pressure Position Sitting Blood Pressure Position [Left Arm] Lying Pulse Oximetry 95 95 Oxygen Delivery Method Room Air Room Air Sepsis Recent Fever Within 48 Hours No Sepsis New/Unexplained Change in Mental Status N/A Sepsis Action Taken by Nursing No Action Required 01/04/24 21:22 01/04/24 22:25 01/05/24 00:00 Temperature Temperature Source Pulse Rate Pulse Rate [Left] 84 83 Pulse Rhythm [Left] Regular Regular Pulse Strength [Left] Normal Normal Respiratory Rate 20 20 Respiratory Effort / Characteristics Non-Labored Spontaneous Non-Labored Spontaneous Respiratory Depth Normal Normal Respiratory Pattern Regular Blood Pressure Blood Pressure [Left Arm] 146/85 H Blood Pressure Mean Blood Pressure Mean [Left Arm] 105 Blood Pressure Position Blood Pressure Position [Left Arm] Lying Lying Pulse Oximetry 97 97 96 Oxygen Delivery Method Room Air Room Air Room Air Sepsis Recent Fever Within 48 Hours Sepsis New/Unexplained Change in Mental Status Sepsis Action Taken by Jail Medications Current Medication List: was personally reviewed by me Laboratory Data Attestation: I reviewed the patient's lab results. 01/04/24 22:51 01/04/24 22:00 Lab Results 01/04/24 01/04/24 01/04/24 Range/Units 20:57 22:00 22:51 WBC Cancelled 10.05 RBC Cancelled 3.84 L Hgb Cancelled 10.8 L Hct Cancelled 33.1 L MCV Cancelled 86.2 MCH Cancelled 28.1 MCHC Cancelled 32.6 RDW Std Deviation Cancelled 45.8 RDW Coeff of Donovan Cancelled 14.6 H Plt Count Cancelled 275 MPV Cancelled 9.6 Immature Gran % (Auto) Cancelled 0.3 Neut % (Auto) Cancelled 66.5 Lymph % (Auto) Cancelled 21.0 [place] % (Auto) Cancelled 8.6 Eos % (Auto) Cancelled 2.7 Baso % (Auto) Cancelled 0.9 Neut # (Auto) Cancelled 6.69 H Lymph # (Auto) Cancelled 2.11 [place] # (Auto) Cancelled 0.86 H Eos # (Auto) Cancelled 0.27 Baso # (Auto) Cancelled 0.09 Immature Gran # (Auto) Cancelled 0.03 Absolute Nucleated RBC Cancelled Nucleated RBC % (auto) Cancelled Neutrophils % (Manual) Cancelled Band Neutrophils % Cancelled Lymphocytes % (Manual) Cancelled Prolymphocyte % Cancelled Reactive Lymphs % (Man) Cancelled Monocytes % (Manual) Cancelled Eosinophils % (Manual) Cancelled Basophils % (Manual) Cancelled Metamyelocytes % (Man) Cancelled Myelocytes % (Man) Cancelled Promyelocytes % (Man) Cancelled Blast Cells % (Manual) Cancelled Plasma Cell % (Manual) Cancelled Other Cells % Cancelled Nucleated RBC % Cancelled Neutrophils # (Manual) Cancelled Band Neutrophils # Cancelled Total Absolute Neuts Cancelled Lymphocytes # (Manual) Cancelled Prolymphocyte # Cancelled Reactive Lymphs # Cancelled Total Abs Lymphocytes Cancelled Monocytes # (Manual) Cancelled Eosinophils # (Manual) Cancelled Basophils # (Manual) Cancelled Metamyelocytes # (Man) Cancelled Myelocytes # (Manual) Cancelled Promyelocytes # (Man) Cancelled Blast Cells # (Man) Cancelled Plasma Cell # (Manual) Cancelled Other Cells # Cancelled Nucleated RBCs # (Man) Cancelled Hypersegmented Neuts Cancelled Hyposegmented Neuts Cancelled Hypogranular Neuts Cancelled Large Granular Lymphs Cancelled # Lrg Granular Lymphs Cancelled Hairy Cells Cancelled Smudge Cells Cancelled Toxic Granulation Cancelled Toxic Vacuolation Cancelled Dohle Bodies Cancelled Mini Rods Cancelled Platelet Estimate Cancelled Hypogranular Platelets Cancelled Giant Platelets Cancelled Platelet Satelliting Cancelled RBC Morphology Cancelled Polychromasia Cancelled Hypochromasia Cancelled Poikilocytosis Cancelled Basophilic Stippling Cancelled Anisocytosis Cancelled Microcytosis Cancelled Macrocytosis Cancelled Spherocytes Cancelled Pappenheimer Bodies Cancelled Sickle Cells Cancelled Target Cells Cancelled Tear Drop Cells Cancelled Ovalocytes Cancelled Stomatocytes Cancelled [place] Bodies Cancelled Echinocytes Cancelled Acanthocytes (Spur) Cancelled Rouleaux Cancelled RBC Agglutinates Cancelled Schistocytes Cancelled Sezary Cell Cancelled Sodium 134 L (136-145) mmol/L Potassium 4.5 (3.5-5.1) mmol/L Chloride 101 (98-107) mmol/L Carbon Dioxide 25 (21-32) mmol/L Anion Gap 8 (3-11) BUN 29 H (6-23) mg/dl Creatinine 0.83 (0.6-1.2) mg/dl Est Cr Clr Drug Dosing 44.1 ml/min Est GFR ( Amer) 79.9 ml/min Est GFR (Non-Af Amer) 69.0 ml/min BUN/Creatinine Ratio 34.9 H (10-20) Glucose 251 H (70-99(Fasting)) mg/dl POC Glucose 250 H (70-99) mg/dl Calcium 9.2 (8.6-10.3) mg/dl Magnesium 2.0 (1.7-2.4) mg/dl Total Bilirubin 0.3 (0.2-1.0) mg/dl AST 37 (13-39) U/L ALT 29 (7-52) U/L Alkaline Phosphatase 114 H (34-104) U/L Troponin I High Sens 11.0 (0-14) pg/ml Total Protein 6.6 (6.0-8.3) gm/dl Albumin 3.9 (3.4-5.0) gm/dl Globulin 2.7 (2.5-4.0) gm/dl Albumin/Globulin Ratio 1.4 (0.9-2) TSH 4.745 H (0.300-4.500) uIu/ml Free T4 0.97 (0.61-1.60) ng/dl Urine Color Urine Appearance (Clear) Urine pH (4.5-7.5) Ur Specific [place] (1.000-1.030) Urine Protein (Negative) Urine Glucose (UA) (Negative) Urine Ketones (Negative) Urine Blood (Negative) Urine Nitrite (Negative) Urine Bilirubin (Negative) Urine Urobilinogen (Negative) Ur Leukocyte Esterase (Negative) Urine WBC (Auto) (0-5) /hpf Urine RBC (Auto) (0-2) /hpf U Hyaline Cast (Auto) (0-2) /lpf U Epithel Cells (Auto) (0-2) /hpf Urine Bacteria (Auto) (None Seen) Blood Parasites ID Cancelled 01/04/24 Range/Units Unknown WBC RBC Hgb Hct MCV MCH MCHC RDW Std Deviation RDW Coeff of Donovan Plt Count MPV Immature Gran % (Auto) Neut % (Auto) Lymph % (Auto) [place] % (Auto) Eos % (Auto) Baso % (Auto) Neut # (Auto) Lymph # (Auto) [place] # (Auto) Eos # (Auto) Baso # (Auto) Immature Gran # (Auto) Absolute Nucleated RBC Nucleated RBC % (auto) Neutrophils % (Manual) Band Neutrophils % Lymphocytes % (Manual) Prolymphocyte % Reactive Lymphs % (Man) Monocytes % (Manual) Eosinophils % (Manual) Basophils % (Manual) Metamyelocytes % (Man) Myelocytes % (Man) Promyelocytes % (Man) Blast Cells % (Manual) Plasma Cell % (Manual) Other Cells % Nucleated RBC % Neutrophils # (Manual) Band Neutrophils # Total Absolute Neuts Lymphocytes # (Manual) Prolymphocyte # Reactive Lymphs # Total Abs Lymphocytes Monocytes # (Manual) Eosinophils # (Manual) Basophils # (Manual) Metamyelocytes # (Man) Myelocytes # (Manual) Promyelocytes # (Man) Blast Cells # (Man) Plasma Cell # (Manual) Other Cells # Nucleated RBCs # (Man) Hypersegmented Neuts Hyposegmented Neuts Hypogranular Neuts Large Granular Lymphs # Lrg Granular Lymphs Hairy Cells Smudge Cells Toxic Granulation Toxic Vacuolation Dohle Bodies Mini Rods Platelet Estimate Hypogranular Platelets Giant Platelets Platelet Satelliting RBC Morphology Polychromasia Hypochromasia Poikilocytosis Basophilic Stippling Anisocytosis Microcytosis Macrocytosis Spherocytes Pappenheimer Bodies Sickle Cells Target Cells Tear Drop Cells Ovalocytes Stomatocytes [place] Bodies Echinocytes Acanthocytes (Spur) Rouleaux RBC Agglutinates Schistocytes Sezary Cell Sodium (136-145) mmol/L Potassium (3.5-5.1) mmol/L Chloride (98-107) mmol/L Carbon Dioxide (21-32) mmol/L Anion Gap (3-11) BUN (6-23) mg/dl Creatinine (0.6-1.2) mg/dl Est Cr Clr Drug Dosing ml/min Est GFR ( Amer) ml/min Est GFR (Non-Af Amer) ml/min BUN/Creatinine Ratio (10-20) Glucose (70-99(Fasting)) mg/dl POC Glucose (70-99) mg/dl Calcium (8.6-10.3) mg/dl Magnesium (1.7-2.4) mg/dl Total Bilirubin (0.2-1.0) mg/dl AST (13-39) U/L ALT (7-52) U/L Alkaline Phosphatase (34-104) U/L Troponin I High Sens (0-14) pg/ml Total Protein (6.0-8.3) gm/dl Albumin (3.4-5.0) gm/dl Globulin (2.5-4.0) gm/dl Albumin/Globulin Ratio (0.9-2) TSH (0.300-4.500) uIu/ml Free T4 (0.61-1.60) ng/dl Urine Color Yellow Urine Appearance Cloudy A (Clear) Urine pH 6.0 (4.5-7.5) Ur Specific [place] 1.020 (1.000-1.030) Urine Protein 1+ H (Negative) Urine Glucose (UA) Negative (Negative) Urine Ketones Trace H (Negative) Urine Blood 1+ H (Negative) Urine Nitrite Negative (Negative) Urine Bilirubin Negative (Negative) Urine Urobilinogen Negative (Negative) Ur Leukocyte Esterase 3+ H (Negative) Urine WBC (Auto) >50 H (0-5) /hpf Urine RBC (Auto) 11-20 H (0-2) /hpf U Hyaline Cast (Auto) 3-5 H (0-2) /lpf U Epithel Cells (Auto) 0-2 (0-2) /hpf Urine Bacteria (Auto) None Seen (None Seen) Blood Parasites ID Administered Medications Discontinued Medications Sodium Chloride (Nss) 500 mls @ 999 mls/hr IV .Q31M ONE Stop: 01/04/24 21:52 Last Infusion: 01/04/24 22:54 Dose: Infused Documented By: Admin: 01/04/24 22:17 Dose: 999 mls/hr Documented By: VALERIA Cefepime HCl (Maxipime) 2,000 mg in 20 mls @ 5 mls/min IV NOW STA; Protocol Stop: 01/04/24 22:40 Last Admin: 01/04/24 22:54 Dose: 5 mls/min Documented By: VALERIA Imaging Data Radiologist's Impression: Abdomen/Pelvis CT 01/04/24 21:22 Exam(s): CT ABDOMEN + PELVIS Without Contrast EXAM: CT Abdomen and Pelvis Without Intravenous Contrast CLINICAL HISTORY: Reason for exam: Possible urinary obstruction. TECHNIQUE: Axial computed tomography images of the abdomen and pelvis without intravenous contrast. CTDI is 12.15 mGy and DLP is 479.39 mGy-cm. Automated exposure control was utilized for the study. A dose lowering technique was utilized adhering to the principles of ALARA. COMPARISON: January 01, 2024 FINDINGS: Lung bases: Mild fibrotic changes in the lung bases. No consolidation. Heart: Severe coronary calcification. ABDOMEN: Liver: Unremarkable. Gallbladder and bile ducts: Unremarkable. No calcified stones. No ductal dilation. Pancreas: Unremarkable. No ductal dilation. Spleen: Unremarkable. No splenomegaly. Adrenals: Unremarkable. No mass. Kidneys and ureters: The kidneys are within normal limits per no hydronephrosis or ureterolithiasis is seen. There is a nonobstructive 3 mm calyceal calculus in the left. Stomach and bowel: There is a large amount of stool in the cecum and right colon measuring 6.7 cm in diameter suggesting constipation. No other dilated bowel loops are seen. No pneumoperitoneum, free fluid, or abscess. No mucosal thickening. PELVIS: Appendix: No findings to suggest acute appendicitis. Bladder: The urinary bladder is completely decompressed by a suprapubic catheter. There are bladder calculi measuring 1.2 cm in the dependent portion of the bladder, similar to previous. Reproductive: Unremarkable as visualized. ABDOMEN and PELVIS: Intraperitoneal space: See above. Bones/joints: Moderate multilevel degenerative changes throughout the spine. No acute fracture is seen. There is grade 1 anterolisthesis of L5 on S1 due to degenerative facet arthrosis as well as 6 mm posterior disc herniation narrowing the thecal sac to 4 mm there is severe bilateral neural foraminal narrowing. No dislocation. Soft tissues: Unremarkable. Vasculature: The abdominal aorta and mesenteric vessels are severely calcified but nondilated. There is a noncontrast study. Lymph nodes: Unremarkable. No enlarged lymph nodes. IMPRESSION: 1. There is a large amount of stool in the cecum and right colon measuring 6.7 cm in diameter suggesting constipation. No other dilated bowel loops are seen. No pneumoperitoneum, free fluid, or abscess. 2. The urinary bladder is completely decompressed by a suprapubic catheter. There are bladder calculi measuring 1.2 cm in the dependent portion of the bladder, similar to previous. 3. The kidneys are within normal limits. No hydronephrosis or ureterolithiasis is seen. There is a nonobstructive 3 mm calyceal calculus in the left. 4. Moderate multilevel degenerative changes throughout the spine. No acute fracture is seen. There is grade 1 anterolisthesis of L5 on S1 due to degenerative facet arthrosis as well as 6 mm posterior disc herniation narrowing the thecal sac to 4 mm there is severe bilateral neural foraminal narrowing. Electronically signed by: Lewis Gan MD 01/04/24 23:15 PM Discharge Plan Visit Data Chief Complaint: Hematuria Stated Complaint: HEMATURIA, HAS CATH IN ED Provider: Werner Gomez Discharge Problem: Confusion, Hematuria, Acute UTI, Anemia Patient Disposition: Admitted As Inpatient Condition: Good Forms Stand Alone Forms: My USINE IO Prescriptions Prescriptions: No Action aspirin 81 mg tablet,delayed release (DR/EC) 81 mg PO DAILY Qty: 30 2RF atorvastatin 80 mg tablet 80 mg PO DAILY Qty: 30 2RF clopidogrel [Plavix] 75 mg tablet 75 mg PO DAILY Qty: 30 2RF Glucagon (HCl) Emergency Kit 1 mg recon soln 1 mg subcut Q20M PRN (Reason: hypoglycemia) Qty: 1 0RF Rx Instructions: until target blood sugar attained multivitamin Tablet 1 tab PO DAILY Qty: 30 0RF (DME) OneTouch Ultra Test Strip See Rx Instructions .Route Qty: 300 11RF Rx Instructions: Test blood sugars 7 time a day (DME) Novopen Echo Insulin Pen See Rx Instructions .Route Qty: 1 0RF Rx Instructions: As directed to use to inject Novolog with meals (DME) pen needle, diabetic [BD Ultra-Fine Asha Pen Needle] 32 gauge x 5/32" needle See Rx Instructions .Route Qty: 200 11RF Rx Instructions: Use 6 per day insulin glargine [Lantus Solostar U-100 Insulin] 100 unit/mL (3 mL) insulin pen 12 unit subcut DAILY Qty: 15 2RF prednisone 2.5 mg tablet 5 mg PO UD Rx Instructions: per patient, she goes between 2.5 mg and 5 mg. On 12/01/23 the 2.5 mg dose was filled for 30 day supply. acetaminophen 325 mg capsule 650 mg PO Q4H PRN (Reason: Pain) Probiotic 10 billion cell Capsule 10,000 mmu cells PO DAILY insulin aspart U-100 [Novolog PenFill U-100 Insulin] 100 unit/mL cartridge 1 sliding scale dose subcut DIRECTED Rx Instructions: inject according to sliding scale daily with meals; TDD up to 25 units amoxicillin-pot clavulanate 875-125 mg tablet 1 tab PO BID Qty: 14 0RF Referrals Referrals: Fabian Grant MD [Primary Care Provider] - Discharge Problem: Hematuria Qualifiers: Hematuria type: gross Qualified Code(s): R31.0 - Gross hematuria Anemia Qualifiers: Anemia type: unspecified type Qualified Code(s): D64.9 - Anemia, unspecified
[2024-01-04] MEDS: SODIUM CHLORIDE 0.9% 500 ML IV ONE (22:17)
[2024-01-04 22:29] LABS: Appearance Urine Cloudy (Clear); Bacteria Urine Automated None Seen (None Seen); Bilirubin Urine Negative (Negative); Blood Urine 1+ (Negative); Color Urine Yellow; Epithelial Cell Urine Auto 0-2 /hpf (0-2); Glucose Urine UA Negative (Negative); Ketones Urine Trace (Negative); Leukocyte Esterase Urine 3+ (Negative); Nitrite Urine Negative (Negative); Protein Urine 1+ (Negative); Urobilinogen Urine Negative (Negative); WBC Urine Automated >50 /hpf (0-5)
[2024-01-04 22:36] LABS: Albumin Globulin Ratio 1.4 (0.9-2); Albumin Level 3.9 gm/dl (3.4-5.0); BUN Creatinine Ratio 34.9 (10-20); Bilirubin,Total 0.3 mg/dl (0.2-1.0); Calcium 9.2 mg/dl (8.6-10.3); Creatinine Clr Calc Pharmacy 44.1 ml/min; Est GFR (African American) 79.9 ml/min; Globulin 2.7 gm/dl (2.5-4.0); Potassium 4.5 mmol/L (3.5-5.1); Total Protein 6.6 gm/dl (6.0-8.3)
[2024-01-04 22:51] LABS: Thyroid Stimulating Hormone 4.745 uIu/ml (0.300-4.500)
[2024-01-04] MEDS: CEFEPIME 2,000 MG/20 ML VIAL IV STA (22:54)
[2024-01-04 23:12] LABS: Basophils # (auto) 0.09 K/uL (0.00-0.20); Basophils % (auto) 0.9 %; Eosinophils # (auto) 0.27 K/uL (0.00-0.50); Eosinophils % (auto) 2.7 %; Hematocrit (blood only) 33.1 % (37.0-47.0); Hemoglobin 10.8 g/dl (12.0-16.0); Immature Granulocytes # (auto) 0.03 K/uL (0.01-0.20); Immature Granulocytes % (auto) 0.3 %; Lymphocytes # (auto) 2.11 K/uL (1.20-3.40); Mean Corpuscular Hemoglobin 28.1 pg (25.0-34.0); Mean Corpuscular Hgb Conc 32.6 g/dL (32.0-36.0); Mean Corpuscular Volume 86.2 fL (80.0-100.0); Mean Platelet Volume 9.6 fL (9.4-12.4); Monocytes # (auto) 0.86 K/uL (0.11-0.59); Monocytes % (auto) 8.6 %; Neutrophils # (auto) 6.69 K/uL (1.40-6.50); Neutrophils % (auto) 66.5 %; Platelet Count 275 K/uL (130-400); RDW Coefficient of Variation 14.6 % (11.5-14.5); RDW Standard Deviation 45.8 fL (36.4-46.3); Red Blood Count 3.84 M/uL (4.20-5.40); White Blood Count 10.05 K/ul (4.8-10.8)
--- NOTE | 2024-01-04 23:16 | CT Scan Report ---
Exam(s): CT ABDOMEN + PELVIS Without Contrast EXAM: CT Abdomen and Pelvis Without Intravenous Contrast CLINICAL HISTORY: Reason for exam: Possible urinary obstruction. TECHNIQUE: Axial computed tomography images of the abdomen and pelvis without intravenous contrast. CTDI is 12.15 mGy and DLP is 479.39 mGy-cm. Automated exposure control was utilized for the study. A dose lowering technique was utilized adhering to the principles of ALARA. COMPARISON: January 01, 2024 FINDINGS: Lung bases: Mild fibrotic changes in the lung bases. No consolidation. Heart: Severe coronary calcification. ABDOMEN: Liver: Unremarkable. Gallbladder and bile ducts: Unremarkable. No calcified stones. No ductal dilation. Pancreas: Unremarkable. No ductal dilation. Spleen: Unremarkable. No splenomegaly. Adrenals: Unremarkable. No mass. Kidneys and ureters: The kidneys are within normal limits per no hydronephrosis or ureterolithiasis is seen. There is a nonobstructive 3 mm calyceal calculus in the left. Stomach and bowel: There is a large amount of stool in the cecum and right colon measuring 6.7 cm in diameter suggesting constipation. No other dilated bowel loops are seen. No pneumoperitoneum, free fluid, or abscess. No mucosal thickening. PELVIS: Appendix: No findings to suggest acute appendicitis. Bladder: The urinary bladder is completely decompressed by a suprapubic catheter. There are bladder calculi measuring 1.2 cm in the dependent portion of the bladder, similar to previous. Reproductive: Unremarkable as visualized. ABDOMEN and PELVIS: Intraperitoneal space: See above. Bones/joints: Moderate multilevel degenerative changes throughout the spine. No acute fracture is seen. There is grade 1 anterolisthesis of L5 on S1 due to degenerative facet arthrosis as well as 6 mm posterior disc herniation narrowing the thecal sac to 4 mm there is severe bilateral neural foraminal narrowing. No dislocation. Soft tissues: Unremarkable. Vasculature: The abdominal aorta and mesenteric vessels are severely calcified but nondilated. There is a noncontrast study. Lymph nodes: Unremarkable. No enlarged lymph nodes. IMPRESSION: 1. There is a large amount of stool in the cecum and right colon measuring 6.7 cm in diameter suggesting constipation. No other dilated bowel loops are seen. No pneumoperitoneum, free fluid, or abscess. 2. The urinary bladder is completely decompressed by a suprapubic catheter. There are bladder calculi measuring 1.2 cm in the dependent portion of the bladder, similar to previous. 3. The kidneys are within normal limits. No hydronephrosis or ureterolithiasis is seen. There is a nonobstructive 3 mm calyceal calculus in the left. 4. Moderate multilevel degenerative changes throughout the spine. No acute fracture is seen. There is grade 1 anterolisthesis of L5 on S1 due to degenerative facet arthrosis as well as 6 mm posterior disc herniation narrowing the thecal sac to 4 mm there is severe bilateral neural foraminal narrowing. Electronically signed by: Lewis Gan MD 01/04/24 23:15 PM
[2024-01-04 23:28] LABS: T4 Free Thyroxine 0.97 ng/dl (0.61-1.60)
--- NOTE | 2024-01-05 00:09 | History & Physical Report ---
Date of Service January 05, 2024 Assessment & Plan (1) Acute UTI: Plan: - UA is still consistent with UTI - most recent culture grow gil sensitive proteus/E Coli, does have a history of pseudomonas UTI - received cefepime in ED-> plan to continue - catheter is draining clear urine, so more likely blood noted earlier from catheter site - no acute bleeding at catheter site now, but if continue consider urology consult (2) Confusion: Plan: - orientated to person, place, location - no focal neurologic deficits - likely some delirium in the setting of recent hospitalization (3) Anemia: Plan: - Hbg= 10.8, baseline ~11 - hemodynamically stable without acute signs of bleeding at present - continue to trend hemoglobin (4) CAD (coronary atherosclerotic disease): Plan: - Hold DAPT in the setting of possible need for urologic procedure - if no further bleeding from catheter and no need for procedure, would resume qAM (5) Dyslipidemia: Plan: - continue statin (6) Diabetes type 1, controlled: Plan: - Continue home insulin regimen - SSI based on requirements from last admission, continue home Lantus at 12 un its daily - glycemic consult (7) Rheumatoid arthritis: Plan: - continue home prednisone dose (8) Lumbar disc disease: Plan: - again noted on CT A&P -grade 1 anterolisthesis of L5 on S1 due to degenerative facet arthrosis as well as 6 mm posterior disc herniation narrowing the thecal sac to 4 mm there is severe bilateral neural foraminal narrowing. - no again complaints at this change-> no weakness, or acute changes - consider outpatient f/u with ortho spine due to severe foraminal narrowing Plan Diet: DM2 Code: Full Dispo: Med-Surg VTE Prophylaxis: hold chemical pending possible procedure History of Present Illness Primary Care Provider: Fabian Grant MD 73 year old female with a past medical history of DM 1, diabetic retinopathy, bilateral BKA, CAD with history of PCI/RCA stent 2018, hyperlipidemia, chronic catheterization with suprapubic catheter presenting with concern for blood surrounding suprapubic catheter. Was discharged on 01/02 after admission for UTI/pyelitis. Was treated with cefepime while inpatient. Urine culture grew gil sensitive proteus/e coli. She was discharged on Augmentin. Today she presents with some increased confusion per family and blood surrounding suprapubic catheter. Catheter was replaced during last admission. Denies fever/chills, pain. Resting comfortably when I saw her in ED without any acute complaints. Allergies Allergy/AdvReac Type Severity Reaction Status Date / Time cephalexin Allergy Unknown Unknown Verified 10/23/23 13:22 diphenhydramine Allergy Unknown Unknown Verified 10/23/23 13:22 hyoscyamine Allergy Unknown Unknown Verified 10/23/23 13:22 infliximab Allergy Unknown Unknown Verified 10/23/23 13:22 losartan Allergy Unknown Unknown Verified 10/23/23 13:22 phenazocine Allergy Unknown Unknown Verified 10/23/23 13:22 sulfamethoxazole Allergy Unknown Unknown Verified 10/23/23 13:22 Beta-Blockers Allergy Unknown Verified 01/01/24 13:14 (Beta-Adrenergic Bloc lisinopril Allergy Unknown Verified 01/01/24 13:14 phenazopyridine Allergy Unknown Verified 01/01/24 13:14 [From Pyridium] ramipril AdvReac Unknown Unknown Verified 10/23/23 13:22 Home Medications Medication Instructions Recorded Confirmed Type aspirin 81 mg tablet,delayed 81 mg PO DAILY #30 tabs 06/02/21 01/01/24 Rx release atorvastatin 80 mg tablet 80 mg PO DAILY #30 tabs 06/02/21 01/01/24 Rx clopidogrel 75 mg tablet (Plavix) 75 mg PO DAILY #30 tabs 06/02/21 01/01/24 Rx glucagon HCl 1 mg solution for 1 mg subcut Q20M PRN hypoglycemia 06/02/21 01/01/24 Rx injection (Glucagon (HCl) #1 ea Emergency Kit) multivitamin 1 tab PO DAILY #30 tabs 06/02/21 01/01/24 Rx Lactobacillus acidophilus 10 10,000 mmu cells PO DAILY 07/18/21 01/01/24 History billion cell capsule (Probiotic) acetaminophen 325 mg capsule 650 mg PO Q4H PRN Pain 10/13/21 01/01/24 History prednisone 2.5 mg tablet 5 mg PO UD 12/18/22 01/01/24 History blood sugar diagnostic (OneTouch #300 ea 05/29/23 08/21/23 Rx Ultra Test strips) insulin admin supplies (Novopen #1 ea 07/12/23 08/21/23 Rx Echo subcutaneous) pen needle, diabetic 32 gauge x #200 ea 11/04/23 Rx " (BD Ultra-Fine Asha Pen Needle) Lantus Solostar U-100 Insulin 100 12 unit (0.12 mL) subcut DAILY #15 11/18/23 01/01/24 Rx unit/mL (3 mL) subcutaneous pen mL (insulin glargine) insulin aspart U-100 100 unit/mL 1 sliding scale dose subcut 01/01/24 01/01/24 History subcutaneous cartridge (Novolog DIRECTED PenFill U-100 Insulin aspart) amoxicillin 875 mg-potassium 1 tab PO BID #14 tabs 01/03/24 Rx clavulanate 125 mg tablet Past Med/Surg History Problem List (Updated 01/05/24 @ 01:25 by Background Daemon) Anemia (Acute) Acute UTI (Acute) Hematuria (Acute) Confusion (Acute) Acute pyelitis (Acute) Lumbar disc disease Pancreatic duct disruption UTI (urinary tract infection) Shoulder pain Encounter for pain management Sacroiliitis Pneumonia (Acute) Acute hyponatremia (Acute) COVID-19 (Acute) Hypoxia (Acute) Acute urinary retention Background diabetic retinopathy associated with type 1 diabetes mellitus CAD (coronary atherosclerotic disease) Below-knee amputation of right lower extremity Below-knee amputation of left lower extremity Dyslipidemia Diabetes type 1, controlled (Acute) Suprapubic catheter (Acute) Medical History Rheumatoid arthritis Surgical History S/P BKA (below knee amputation) Stented coronary artery Family History Father Hypertension Stroke Mother Heart disease Social History Smoking Status: Never smoker Hx Alcohol Use: No Hx Substance Use: No Preferred Language: Croatian Communication Ability: Effective Acoust[employer] Supervisor Required: No Beliefs That Will Affect Care: None marital status: / Current Living Situation: Family Current Living Situation Comment: Son current occupational status: retired current occupation: Retired RN Other Information That Helps Us Care for You: No Feels Safe at Home: Yes Assistive Devices: Prosthesis, Walker and Wheelchair Review of Systems Review of Systems: As per above Physical Exam Physical Exam: Constitutional: well-appearing, no acute distress HEENT: NCAT, no conjunctival injection CV: regular rhythm, no murmur appreciated, extremities well-perfused Resp: CTABL, no wheezes/rales/rhonchi appreciated, no increased work of breathing GI: soft, nondistended, nontender, BS normoactive, + suprapubic catheter, some dried blood surrounding, no acute bleeding. Catheter draining clear urine. MSK: no gross deformities appreciated Skin: warm, dry, no rash appreciated Neuro: alert, oriented, no focal neurologic deficit appreciated Results & Data Results & Data Vital Signs (Past 12 Hours) Vital Signs Temp Pulse Pulse Resp BP BP Pulse Ox 01/04/24 22:25 84 20 97 01/04/24 21:22 97 01/04/24 20:52 86 01/04/24 20:35 36.4 C L 84 18 123/69 95 01/04/24 20:25 85 20 152/83 H 95 O2 Del Method 01/04/24 22:25 Room Air 01/04/24 21:22 Room Air 01/04/24 20:52 01/04/24 20:35 Room Air 01/04/24 20:25 Room Air Supervising Physician Co-Signing Physician Notes Attending addendum: I have physically seen this patient, have supervised the medical residents activities, and agree with the H&P unless as otherwise noted. Assessment and Plan: Urinary tract infection/suprapubic catheter- Follow urine culture and sensitivity History of Proteus, E. coli and Pseudomonas at different times in the past Continue empiric cefepime 2 g IV every 12 hours IV fluids as noted Confusion- Likely secondary to physiologic stress of urinary tract infection Delirium as noted CAD- Continue aspirin, clopidogrel Diabetes mellitus- Continue glargine 12 units subcu daily Placed on Accu-Cheks with NovoLog SSI Check hemoglobin A1c Resident Activity Tracking Resident Involvement: Resident Care Provided Care Provided: Adult Hospital Medicine (3) Anemia Anemia type: unspecified type Qualified Code(s): D64.9 - Anemia, unspecified (6) Diabetes type 1, controlled Diabetes mellitus complication status: with other specified complication Qualified Code(s): E10.69 - Type 1 diabetes mellitus with other specified complication
[2024-01-05] MEDS ORDERED: GLUCOSE 40% GEL 15 GM TUBE PO PRN (01:28)
[2024-01-05] MEDS ORDERED: PHARMACY GLYCEMIC MGMT CONSULT PRN (01:28)
[2024-01-05] MEDS ORDERED: CARBOHYDRATES FOR HYPOGLYCEMIA PO PRN (01:28)
[2024-01-05] MEDS ORDERED: GLUCAGON FOR INJ 1 MG VIAL SQ PRN (01:28)
[2024-01-05] MEDS ORDERED: DEXTROSE 50% 50 ML SYRINGE IV PRN (01:28)
[2024-01-05] MEDS ORDERED: GLUCOSE 10 TAB/TUBE PO PRN (01:28)
[2024-01-05] MEDS: INSULIN ASPART PER UNIT CHARGE SC SCH (02:41)
[2024-01-05 06:51] LABS: Eosinophils % (auto) 2.9 %; Hematocrit (blood only) 33.5 % (37.0-47.0); Hemoglobin 11.3 g/dl (12.0-16.0); Immature Granulocytes # (auto) 0.03 K/uL (0.01-0.20); Immature Granulocytes % (auto) 0.3 %; Lymphocytes # (auto) 1.96 K/uL (1.20-3.40); Lymphocytes % (auto) 18.9 %; Mean Corpuscular Hemoglobin 28.3 pg (25.0-34.0); Mean Corpuscular Hgb Conc 33.7 g/dL (32.0-36.0); Mean Platelet Volume 9.5 fL (9.4-12.4); Monocytes # (auto) 0.88 K/uL (0.11-0.59); Monocytes % (auto) 8.5 %; Neutrophils # (auto) 7.08 K/uL (1.40-6.50); Neutrophils % (auto) 68.4 %; Platelet Count 270 K/uL (130-400); RDW Coefficient of Variation 14.6 % (11.5-14.5); RDW Standard Deviation 44.6 fL (36.4-46.3); Red Blood Count 3.99 M/uL (4.20-5.40); White Blood Count 10.35 K/ul (4.8-10.8)
[2024-01-05 07:24] LABS: BUN Creatinine Ratio 33.8 (10-20); Calcium 8.7 mg/dl (8.6-10.3); Creatinine Clr Calc Pharmacy 52.8 ml/min; Est GFR (African American) 100.7 ml/min; Est GFR (Non-African American) 86.8 ml/min; Potassium 3.9 mmol/L (3.5-5.1)
--- NOTE | 2024-01-05 08:22 | XRay Report ---
XR chest 1V portable CLINICAL HISTORY: weakness TECHNIQUE: Single frontal radiograph of the chest was obtained. Comparison: Comparison is made to chest radiograph 01/11/2022 FINDINGS: No lines and tubes are seen. The cardiomediastinal silhouette is normal. The lungs are clear apart fr om trace atelectasis at the right lung base. No evidence of pleural effusion or pneumothorax. IMPRESSION: No acute chest disease. ACT 112: Negative or not required by law. Electronically signed by: Jose Schaffer M.D. 01/05/2024 8:21 AM
[2024-01-05] MEDS: LANTUS PER UNIT CHARGE SQ SCH (08:27)
[2024-01-05] MEDS: predniSONE 2.5 MG TAB PO SCH (08:28)
[2024-01-05] MEDS: ATORVASTATIN 40 MG TAB PO SCH (08:28)
[2024-01-05] MEDS: POLYETHYLENE (MIRALAX) 17 GM PACK PO SCH (08:28)
[2024-01-05] MEDS: CEFEPIME 2,000 MG in SYRINGE 0 ML IV SCH (11:21)
--- NOTE | 2024-01-05 13:38 | Pharmacy Report ---
Pharmacy Glycemic Short Note 2 - Date of Service January 05, 2024 - Glycemic Short BSG Results (Last 24 hours): 01/04/24 01/04/24 01/05/24 20:57 22:00 02:24 Glucose 251 H POC Glucose 250 H 153 H 01/05/24 01/05/24 06:28 07:51 Glucose 182 H POC Glucose 161 H OUTPATIENT ANTIDIABETIC REGIMEN: * Lantus 12 units SC daily * Novolog 0.5-3.5 units SC AC (per diabetes note), SSI up to 25 units/day HbA1c: ordered for 01/06/24 ASSESSMENT: * SL is a 73 year old female w/ T1DM admitted w/ acute UTI * Blood sugars elevated on presentation >250 mg/dL * Patient known to pharmacy glycemic service due to prior consultation - will use this data to guide initial dosing * On prednisone 2.5 mg PO daily (home medication) PLAN FOR INPATIENT GLYCEMIC CONTROL: * Basal insulin * Lantus 10 units SQ daily * Bolus insulin * NovoLog per scale ACHS or Q6hrs while NPO * Goal Range: Low 110 mg/dL - High 150 mg/dL * Correction Factor: 65 mg/dL/unit * Nutritional / Prandial insulin per carb ratio of 1 unit per 20 grams CHO consumed
--- NOTE | 2024-01-05 19:36 | Billing Data ---
Date of Service January 05, 2024 Coding Level of Care Code 29314 INT INP/OBS CARE
[2024-01-06 07:04] LABS: Basophils # (auto) 0.12 K/uL (0.00-0.20); Basophils % (auto) 1.2 %; Eosinophils # (auto) 0.38 K/uL (0.00-0.50); Eosinophils % (auto) 3.7 %; Hematocrit (blood only) 34.5 % (37.0-47.0); Immature Granulocytes # (auto) 0.03 K/uL (0.01-0.20); Immature Granulocytes % (auto) 0.3 %; Lymphocytes # (auto) 2.15 K/uL (1.20-3.40); Mean Corpuscular Hemoglobin 29.1 pg (25.0-34.0); Mean Corpuscular Hgb Conc 34.8 g/dL (32.0-36.0); Mean Corpuscular Volume 83.5 fL (80.0-100.0); Mean Platelet Volume 9.8 fL (9.4-12.4); Monocytes # (auto) 0.81 K/uL (0.11-0.59); Monocytes % (auto) 7.9 %; Neutrophils # (auto) 6.77 K/uL (1.40-6.50); Neutrophils % (auto) 65.9 %; Platelet Count 294 K/uL (130-400); RDW Coefficient of Variation 14.6 % (11.5-14.5); RDW Standard Deviation 44.5 fL (36.4-46.3); Red Blood Count 4.13 M/uL (4.20-5.40); White Blood Count 10.26 K/ul (4.8-10.8)
[2024-01-06 07:28] LABS: BUN Creatinine Ratio 28.2 (10-20); Calcium 8.8 mg/dl (8.6-10.3); Creatinine Clr Calc Pharmacy 44.2 ml/min; Est GFR (African American) 86.2 ml/min; Est GFR (Non-African American) 74.4 ml/min; Potassium 4.3 mmol/L (3.5-5.1)
[2024-01-06 07:29] VITALS: RESP 16
[2024-01-06 07:51] LABS: Estimated Average Glucose 203 mg/dl; Hemoglobin A1C 8.7 % (4.5-5.6)
[2024-01-06] MEDS: LANTUS PER UNIT CHARGE SQ SCH (08:36)
--- NOTE | 2024-01-06 09:32 | Pharmacy Report ---
Pharmacy Glycemic Short Note 2 - Date of Service January 06, 2024 - Glycemic Short BSG Results (Last 24 hours): 01/05/24 01/05/24 01/05/24 11:55 16:41 16:42 Glucose POC Glucose 209 H 388 H* 403 H* 01/05/24 01/06/24 01/06/24 21:02 06:26 07:52 Glucose 235 H POC Glucose 195 H 269 H OUTPATIENT ANTIDIABETIC REGIMEN: * Lantus 12 units SC daily * Novolog 0.5-3.5 units SC AC (per diabetes note), SSI up to 25 units/day HbA1c: 8.7% ASSESSMENT: 01/05: * BSGs [phone]/dL the last 24h: Received 10 units of basal and 17 units of bolus insulin yesterday. * Tolerating diet, continues on prednisone 2.5mg daily and cefepime. * Given elevated fasting in high 200s this AM, will increase basal slightly to home dose of 12 units. Novolog tightened slightly due to elevated lunch BSG (repeat check @ 1400). 01/04: * SL is a 73 year old female w/ T1DM admitted w/ acute UTI * Blood sugars elevated on presentation >250 mg/dL * Patient known to pharmacy glycemic service due to prior consultation - will use this data to guide initial dosing * On prednisone 2.5 mg PO daily (home medication) PLAN FOR INPATIENT GLYCEMIC CONTROL: * Basal insulin * Lantus 12 units SQ daily * Bolus insulin * NovoLog per scale ACHS or Q6hrs while NPO * Goal Range: Low 110 mg/dL - High 150 mg/dL * Correction Factor: 60 mg/dL/unit * Nutritional / Prandial insulin per carb ratio of 1 unit per 18 grams CHO consumed
[2024-01-06] MEDS: INSULIN ASPART PER UNIT CHARGE SC SCH (14:22)
--- NOTE | 2024-01-06 14:40 | Discharge Summary ---
Date of Service January 06, 2024 Admission HPI Per Admitting Provider 73 year old female with a past medical history of DM 1, diabetic retinopathy, bilateral BKA, CAD with history of PCI/RCA stent 2018, hyperlipidemia, chronic catheterization with suprapubic catheter presenting with concern for blood surrounding suprapubic catheter. Was discharged on 01/02 after admission for UTI/pyelitis. Was treated with cefepime while inpatient. Urine culture grew gil sensitive proteus/e coli. She was discharged on Augmentin. Today she presents with some increased confusion per family and blood surrounding suprapubic catheter. Catheter was replaced during last admission. Denies fever/chills, pain. Resting comfortably when I saw her in ED without any acute complaints. Admission Exam (Per Admitting) Constitutional The patient is awake, alert and oriented 3, well developed and well nourished, normocephalic and atraumatic, lying in bed and in no acute distress. HEENT--PERRL, EOMI, mucous membranes and oropharynx mildly dry Neck--supple. No JVD. No bruits. Thyroid normal, trachea midline, no adenopathy. Heart--normal S1 and S2. No murmurs, rubs or gallops. Lungs--clear bilaterally, no respiratory distress, no accessory muscle use. Abdomen--normal bowel sounds and soft. Extremities--no cyanosis or clubbing. No edema. Dermatologic--bilateral BKA Neurologic--cranial nerves II through XII grossly intact. Rheumatologic--normal range of motion. Psychiatric--normal affect. Discharge Data Consultations 01/04/24 23:22 ED Decision to Admit Stat Hospital Course (1) Acute UTI: - UA is still consistent with UTI - most recent culture grow gil sensitive proteus/E Coli, does have a history of pseudomonas UTI - received cefepime in ED-> plan to continue - Resume oral Augmentin upon discharge (2) Confusion: - orientated to person, place, location - no focal neurologic deficits - likely some delirium in the setting of recent hospitalization (3) Anemia: - Hbg= 10.8, baseline ~11 - hemodynamically stable without acute signs of bleeding at present - continue to trend hemoglobin (4) CAD (coronary atherosclerotic disease): - Hold DAPT in the setting of possible need for urologic procedure - if no further bleeding from catheter and no need for procedure, would resume qAM (5) Dyslipidemia: - continue statin (6) Diabetes type 1, controlled: - Continue home insulin regimen - SSI based on requirements from last admission, continue home Lantus at 12 units daily - glycemic consult (7) Rheumatoid arthritis: - continue home prednisone dose (8) Lumbar disc disease: - again noted on CT A&P -grade 1 anterolisthesis of L5 on S1 due to degenerative facet arthrosis as well as 6 mm posterior disc herniation narrowing the thecal sac to 4 mm there is severe bilateral neural foraminal narrowing. - no again complaints at this change-> no weakness, or acute changes - consider outpatient f/u with ortho spine due to severe foraminal narrowing Plan Diet: DM2 Code: Full Dispo: Med-Surg VTE Prophylaxis: hold chemical pending possible procedure Coding Level of Care Code 20058 INP/OBS DISCH >30 MIN Diagnoses Acute UTI N39.0 Confusion R41.0 Anemia D64.9 Anemia type: unspecified type CAD (coronary atherosclerotic disease) I25.10 Dyslipidemia E78.5 Diabetes type 1, controlled E10.69 Diabetes mellitus complication status: with other specified complication Rheumatoid arthritis M06.9 Lumbar disc disease M51.9 Time Spent (min) 35
[2024-01-06 15:50] VITALS: TEMP 97.7; O2SAT 95
[2024-01-06 18:16] VITALS: BP 136/74; PULSE 94
--- NOTE | 2024-01-07 05:54 | Electrocardiogram Report ---
Test Reason : Blood Pressure : */* mmHG Vent. Rate : 81 BPM Atrial Rate : 81 BPM P-R Int : 130 ms QRS Dur : 66 ms QT Int : 384 ms P-R-T Axes : 33 -24 46 degrees QTcB Int : 446 ms Normal sinus rhythm Normal ECG When compared with ECG of 06-Jan-2022 19:26, Questionable change in QRS axis Confirmed by Brian Strickland [id number] on 01/07/2024 5:53:59 AM Referred By: REFERRED SELF Confirmed By: Brian Strickland
== END 2024-01-06 18:31 | disposition home or self-care (01) ==
LOC: ED 20:24 → 3E 20:24 → SUATTDRO 23:49 → 3E 01-05 01:57